=== PATIENT | male | born 1955 | race Caucasian/White ===

== ENCOUNTER 2019-07-01 13:34 | Observation (INO) ==
[2019-07-01 14:03] LABS: Basophils # 0.1 K/mcL (0.0-0.2); Eosinophils % 0.3 %; Hematocrit 34.5 % (37.5-50.1); Hemoglobin 10.7 g/dL (12.9-16.9); Immature Granulocytes % 0.3 % (0-4); Lymphocytes # 1.4 K/mcL (0.6-4.6); Lymphocytes % 21.6 %; Mean Corpuscular Hemoglobin 26.9 pg (28.0-33.3); Mean Corpuscular Volume 86.7 fL (83.0-100.0); Mean Platelet Volume 11.1 fL (9.4-12.4); Monocytes # 0.7 K/mcL (0.0-1.3); Monocytes % 11.7 %; Neutrophils # 4.1 K/mcL (1.6-8.9); Platelet Count 378 K/mcL (140-400); Red Blood Count 3.98 M/mcL (4.19-5.50); Segmented Neutrophils % 65.1 %; White Blood Count 6.3 K/mcL (4.3-11.1)
[2019-07-01] MEDS ORDERED: Aspirin 325 MG TABLET PO ONE (14:04)
[2019-07-01 14:14] LABS: INR 1.4; Prothrombin Time 16.3 Seconds (9.4-12.1)
[2019-07-01 14:26] LABS: BUN/Creatinine Ratio 20 (6-26); Blood Urea Nitrogen 26 mg/dL (8-23); Calcium 8.8 mg/dL (8.6-10.3); Carbon Dioxide 17 mEq/L (23-29); Chloride 102 mEq/L (98-107); Glucose 120 mg/dL (70-105); Osmolality,Calculated 278 (280-300); Potassium 4.5 mEq/L (3.5-5.1); Sodium 131 mEq/L (136-145); eGFR For African Americans > 60 (> 60); eGFR For Non-African Americans 55 (> 60)
[2019-07-01 14:29] LABS: Troponin I 0.05 ng/mL (< 0.04)
[2019-07-01] MEDS ORDERED: Furosemide 40 MG/4 ML VIAL IVP ONE (14:30)
[2019-07-01] MEDS: Nitroglycerin 0.4 MG TAB.SUBL SL SCH ×2 (14:39→18:04)
[2019-07-01] MEDS ORDERED: Isovue-370 500 ML BOTTLE IVP ONE (14:41)
--- NOTE | 2019-07-01 15:51 | Emergency Department Note ---
Disposition Clinical Impression: Elevated troponin, Pleural effusion Congestive heart failure Qualifiers: Heart failure type: unspecified Heart failure chronicity: acute on chronic Qualified Code(s): I50.9 - Heart failure, unspecified Anemia Qualifiers: Anemia type: unspecified type Qualified Code(s): D64.9 - Anemia, unspecified Disposition: Admitted As Inpatient Condition: Good Time of Disposition: 15:57 General Adult HPI - General Chief complaint: ED Chest Pain Stated complaint: Heart Problems Time Seen by Provider: 07/01/19 13:49 Source: patient, family Mode of arrival: ambulatory Limitations: no limitations Nursing Notes Reviewed: Yes Vital Signs Reviewed: Yes - History of Present Illness HPI Narrative: 64-year-old male with significant past medical history of congestive heart failure and stent placement 2 weeks ago presenting to the emergency department chief complaint of increased shortness of breath, weakness and chest pressure. Patient states for the past 3-4 days he has had increasing shortness of breath and weakness. He states he cannot even get up and walk without becoming short of breath. He has had a dry cough, nonproductive. No fevers. States his chest hurts more when he coughs but he does have chest pressure even without coughing. Patient has no history of COPD or emphysema but does state that he has smoked his whole life. Pain Scale: 4 - Related Data Home Medications Medication Instructions Recorded Confirmed Pantoprazole Sodium [Protonix] 40 mg PO DAILY 09/27/17 07/01/19 Budesonide/Formoterol 80/4.5 2 puff IH BID 03/06/19 07/01/19 [Symbicort 80/4.5] Furosemide [Lasix] 30 mg PO BID 03/06/19 07/01/19 Gabapentin 800 mg PO TID 03/06/19 07/01/19 Ipratropium/Albuterol Sulfate 1 puff IH QID PRN 03/06/19 07/01/19 [Combivent Respimat Inhal [place]] Magnesium Oxide [Magnesium] 400 mg PO DAILY 03/06/19 07/01/19 Brimonidine 0.2% [Alphagan] 1 drop RIGHT EYE BID 07/01/19 07/01/19 Etanercept [Enbrel] 50 mg SQ QWEEK 07/01/19 07/01/19 Latanoprost/Pf [Latanoprost 0.005% 1 drop RIGHT EYE HS 07/01/19 07/01/19 Eye Drop] Lisinopril [Zestril] 10 mg PO DAILY 07/01/19 07/01/19 Metoprolol Succinate [Toprol Xl] 25 mg PO DAILY 07/01/19 07/01/19 Varenicline [Chantix] 1 mg PO BID 07/01/19 07/01/19 Previous Rx's Medication Instructions Recorded Aspirin 81 mg PO DAILY #30 tab.chew 03/06/19 Clopidogrel Bisulfate [Plavix] 75 mg PO DAILY #30 tablet 03/06/19 Allergies Allergy/AdvReac Type Severity Reaction Status Date / Time Amoxicillin Allergy Anaphylaxis Verified 03/06/19 16:02 Penicillins [PCN] Allergy Anaphylaxis Verified 03/06/19 16:02 All systems ED: reviewed and negative except as stated. Constitutional: Denies: fever Eyes: Reports: as per HPI ENT ED: Reports: as per HPI Cardiovascular: Reports: chest pain Respiratory: Reports: cough, dyspnea. Denies: sputum production Gastrointestinal: Reports: as per HPI Genitourinary: Reports: as per HPI Musculoskeletal: Reports: as per HPI Integumentary: Reports: as per HPI Neurological: Reports: as per HPI Psychiatric: Reports: as per HPI Endocrine: Reports: as per HPI Hematological/Lymphatic: Reports: as per HPI Allergic/Immunologic: Reports: as per HPI Past Medical History - Past Medical History Attestation: Yes The following information was validated with the patient. Medical history: Reports: arthritis, cardiomyopathy, CHF, COPD, coronary artery disease, GERD, hypertension Surgical history: Reports: herniorrhaphy Psychiatric history: Reports: no psych history - Social History Smoking Status: Current every day smoker Smokeless Tobacco Status: No Alcohol use: Reports: none Drug use: Reports: none Physical Exam - General Limitations: no limitations General appearance: alert, in no apparent distress - Head Head exam: atraumatic, normocephalic, normal inspection - Eye Eye exam: Absent: scleral icterus - ENT ENT exam: mucous membranes moist - Neck Neck exam: Present: full ROM - Chest Chest inspection: Present: symmetric chest wall rise - Respiratory Respiratory exam: Present: other (Decreased breath sounds bilateral bases) - Cardiovascular Cardiovascular exam: Present: tachycardia - Abdominal Exam Abdominal exam: Present: soft, Non-Tender. Absent: distention, guarding, rebound - Extremities Exam Extremities exam: Present: full ROM, other (Trace edema bilateral lower extremities) - Neurological Exam Neurological exam: Present: alert, oriented X3 - Psychiatric Psychiatric exam: Present: normal affect - Skin Skin exam: Present: warm Course Course Narrative: 64-year-old male presenting to the emergency department chief complaint of chest pressure and increasing shortness of breath. In the room he is alert and oriented 3. Hemodynamically stable. Physical exam is significant for decrease d breath sounds in the bilateral bases. No wheezing. At this time concern for respiratory etiology versus cardiac. Patient did have stent placed 2 weeks ago. Currently on aspirin and Plavix. Did not take his aspirin today. At this time will obtain basic labs, troponin, EKG, d-dimer. Disposition most likely admission due to patient's cardiac history and symptoms. Patient agrees with this plan. - Reevaluation(s) Reevaluation #1: Patient's laboratory analysis significant for elevated d-dimer. CTA was added and showed small bilateral pleural effusions but no pulmonary embolus. Patient also had elevated troponin at 0.05. CTA was concerning for some right heart strain. Most likely due to congestive heart failure. 40 mg of IV Lasix given. Patient will be admitted for CHF, elevated troponin. Patient remains alert and oriented 3 and hemodynamically stable. Patient agrees with this plan. I spoke with Dr. Glasgow who agrees to accept the patient at this time. Vital Signs Temperature 97.7 F 07/01/19 13:34 Pulse Rate 110 07/01/19 13:34 Respiratory Rate 16 07/01/19 13:34 Blood Pressure 151/85 07/01/19 13:34 O2 Sat by Pulse Oximetry 99 07/01/19 13:34 Temperature 97.7 F 07/01/19 13:34 Pulse Rate 110 07/01/19 13:34 Respiratory Rate 16 07/01/19 13:34 Blood Pressure 151/85 07/01/19 13:34 O2 Sat by Pulse Oximetry 99 07/01/19 13:34 Medical Decision Making - Lab Data Result diagrams: 07/01/19 13:52 07/01/19 13:52 Lab Results 07/01/19 07/01/19 07/01/19 Range/Units 13:52 13:52 13:52 WBC 6.3 (4.3-11.1) K/mcL RBC 3.98 L (4.19-5.50) M/mcL Hgb 10.7 L (12.9-16.9) g/dL Hct 34.5 L (37.5-50.1) % MCV 86.7 (83.0-100.0) fL MCH 26.9 L (28.0-33.3) pg MCHC 31.0 L (31.6-35.5) g/dL RDW 16.0 H (11.5-14.5) % Plt Count 378 (140-400) K/mcL MPV 11.1 (9.4-12.4) fL Immature Gran % 0.3 (0-4) % Seg Neutrophils % 65.1 % Lymphocytes % 21.6 % Monocytes % 11.7 % Eosinophils % 0.3 % Basophils % 1.0 % Neutrophils # 4.1 (1.6-8.9) K/mcL Lymphocytes # 1.4 (0.6-4.6) K/mcL Monocytes # 0.7 (0.0-1.3) K/mcL Eosinophils # 0.0 (0.0-0.6) K/mcL Basophils # 0.1 (0.0-0.2) K/mcL PT 16.3 H (9.4-12.1) Seconds INR 1.4 APTT 31.0 (26.0-36.0) Seconds D-Dimer 2601 H (0-500) ng/mLFEU Sodium 131 L (136-145) mEq/L Potassium 4.5 (3.5-5.1) mEq/L Chloride 102 (98-107) mEq/L Carbon Dioxide 17 L (23-29) mEq/L BUN 26 H (8-23) mg/dL Creatinine 1.30 (0.70-1.30) mg/dL Est GFR ( Amer) > 60 (> 60) Est GFR (Non-Af Amer) 55 L (> 60) BUN/Creatinine Ratio 20 (6-26) Glucose 120 H (70-105) mg/dL Calculated Osmolality 278 L (280-300) Calcium 8.8 (8.6-10.3) mg/dL Troponin I 0.05 H* (< 0.04) ng/mL - EKG Data EKG #1 EKG attestation: Yes I reviewed and interpreted this EKG. EKG results narrative: Sinus tachycardia with PVCs. MI interval 124, QRS 86, QTC 420. 105 bpm. T- wave inversion noted in V5, V6. ST segment depression noted in leads 2, 3 and aVF. Compared to previous EKG completed on 03/15/2015 new T-wave inversions and ST segment depression noted. Critical Care Time Critical Care Time: Yes Total Critical Care Time: 35 Attestation: CRITICAL CARE TIME OF 35 MINUTES PERFORMING THIS INDIVIDUAL OUTSIDE OF [facility] BILLABLE PROCEDURES. THIS INCLUDES BEDSIDE EVALUATION, INTERPRETATION OF EKG AND LAB TESTS AND CONSULTATIONS. Attestation Statement - Attestation Attestation: I examined this patient and my medical decision-making was reviewed with the Resident Physician. I agree with the documented findings, disposition and treatment plan as described except to the extent set forth below. Patient comes in with complaints of shortness of breath, he is short of breath with exertion, recently had a stent put in 2 weeks ago. Patient does have it appears to be COPD. The patient has some diminished breath sounds on examination. Do not appreciate wheezing. The patient has no gallop pain or anterior chest pain. Patient does have a slightly elevated troponin here in the emergency room. The patient did have an EKG, do agree with the resident's interpretation of this EKG. There has been no change since an EKG from several years ago however there is nothing to compare to from recent stent placement. The patient at this point time is found to have congestive heart failure. The patient was given IV Lasix here in the emergency room. Patient is going to be admitted for further evaluation and care.
[2019-07-01] MEDS ORDERED: Naloxone 0.4 MG/ML INJ IVP PRN (17:44)
[2019-07-01] MEDS ORDERED: Acetaminophen 325 MG TABLET PO PRN (17:44)
[2019-07-01] MEDS ORDERED: Ondansetron 4 MG/2 ML VIAL IVP PRN (17:44)
--- NOTE | 2019-07-01 17:57 | Internal Med History&Physical ---
Date of Encounter: 07/01/19 Time of Encounter: 17:00 Internal Medicine - H&P: HPI Admitted From: Emergency Dept Plans for Post Hospital Care: Home History of present illness: Mr. 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 He reports undergoing left heart catheter with PCI few weeks ago and started since discharge has not felt quite himself. He is complaining of shortness of breath, dyspnea with mild exertion, generalized weakness fatigue and malaise as well as chest congestion and dry cough for the past 3 days. He reports one sick contact his with similar symptoms of cough and chest congestion. Patient also reports orthopnea and occasional paroxysmal nocturnal dyspnea. He stated and his told him he has apneic episodes while sleeping but he denies any formal diagnosis of obstructive sleep apnea. Patient denies any weight changes or lower extremity edema. He denies any chest pain per se but stated that his chest has felt congested with associated dry cough. Denies any fevers or reports always feeling cold. He started his primary care physician has not scheduled for thyroid biopsy as an outpatient. 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 He denies formal diagnosis of pulmonary hypertension ever undergoing workup for pulmonary hypertension with a right heart. He does endorse heavy drinking many years ago quit back in 1985 but denies any formal diagnosis of liver cirrhosis. Of note CTA was negative for pulmonary embolism but revealed slight pleural effusion pulmonary hypertension with reflux of contrast material into the IVC and hepatic veins suggestive of right heart failure, the findings with lung emphysema Past Med Surg Social Fam HX - Past Medical History Medical history: arthritis, cardiomyopathy, CHF, COPD, coronary artery disease, GERD, hypertension Additional medical history: RHUEMATOID ARTHRITIS, ULCERS,MIGRAINES,ARTHR OSCLEROSIS, Psychiatric history: no psych history - Past Surgical History Surgical History: herniorrhaphy Additional surgical history: BACK SURGERY 1995,LEFT EYE, HERNIA REPAIR, PILONIAL CYSTECTOMY - Social History Smoking Status: Current every day smoker Smokeless Tobacco Status: No Alcohol use: none Drug use: none - Family History Father Living Status: Hx Family Cardiac Disorders: Yes Hx Family Endocrine Disorder: Yes (DM) Internal Medicine - H&P: Meds Pantoprazole Sodium [Protonix] 40 mg PO DAILY 09/27/17 [History] Aspirin 81 mg PO DAILY #30 tab.chew 03/06/19 [Rx] Budesonide/Formoterol 80/4.5 [Symbicort 80/4.5] 2 puff IH BID 03/06/19 [History] Clopidogrel Bisulfate [Plavix] 75 mg PO DAILY #30 tablet 03/06/19 [Rx] Furosemide [Lasix] 30 mg PO BID 03/06/19 [History] Gabapentin 800 mg PO TID 03/06/19 [History] Ipratropium/Albuterol Sulfate [Combivent Respimat Inhal [place]] 1 puff IH QID PRN 03/06/19 [History] Magnesium Oxide [Magnesium] 400 mg PO DAILY 03/06/19 [History] Brimonidine 0.2% [Alphagan] 1 drop RIGHT EYE BID 07/01/19 [History] Etanercept [Enbrel] 50 mg SQ QWEEK 07/01/19 [History] Latanoprost/Pf [Latanoprost 0.005% Eye Drop] 1 drop RIGHT EYE HS 07/01/19 [History] Lisinopril [Zestril] 10 mg PO DAILY 07/01/19 [History] Metoprolol Succinate [Toprol Xl] 25 mg PO DAILY 07/01/19 [History] Varenicline [Chantix] 1 mg PO BID 07/01/19 [History] Allergy/AdvReac Type Severity Reaction Status Date / Time Amoxicillin Allergy Anaphylaxis Verified 03/06/19 16:02 Penicillins [PCN] Allergy Anaphylaxis Verified 03/06/19 16:02 All Systems PM: A 10-system review of systems was performed and is negative for pertinent findings except as documented above in the HPI. Review of systems: GENERAL: Denies fever, but admits to chills, fatigue generalized weakness and malaise DERMATOLOGIC: Denies itch, rash or lesions HEENT: Denies headache, blurriness, he reports having lost vision in his left eye and now has a prosthetic lens, he denies ear pain, tinnitus, rhinorrhea, s inus tenderness or sore throat RESPIRATORY: Reports SOB, cough, but denies hemoptysis or pleuritic chest pain CARDIOVASCULAR: Denies chest pain, LE edema, palpitation or syncope reports dyspnea with mild exertion GASTRO INTESTINAL: Denies cramps, nausea/vomiting, diarrhea or constipation, melena MUSCULOSKELATAL: Reports bilateral muscle pain in his thighs with ambulation, denies joint pain or stiffness PSYCH: Denies worsening anxiety, or depression NEURO: Denies vertigo, dizziness, or ataxia GENITURINARY: Denies dysuria, nocturia or urinary incontinence - Constitutional Vitals: Temp Pulse Resp BP Pulse Ox 97.5 F L 55 18 136/93 97 07/01/19 17:17 07/01/19 17:17 07/01/19 17:17 07/01/19 17:17 07/01/19 17:17 Exam: GENERAL: NAD, A&O x3, pleasant and conversant SKIN: [place], warm dry No skin lesions or rashes, non-jaundiced EYES: Pupil asymmetry noted right greater than left, right EOMI intact, left prosthetic lens noted, no sclera icterus HENT: Head atraumatic, no facial asymmetry, frontal and maxillary sinus non- tender, normal hearing, oropharynx and mucosa moist and without any exudates NECK: No cervical lymphadenopathy, trachea midline, thyroid is palpable and does appear enlarged, mild JVD noted LUNGS: vesicular breath sounds, clear to auscultation, no wheeze, rhonchi, rales or crackles. Non labored respirations HEART: Normal rate and rhythm, grade 2/6 systolic murmur appreciated ABDOMEN: soft, non-tender, non-distended, bowel sounds x 4 normoactive, no appreciable ascites EXTRMITIES: No LE asymmetry, No LE edema, pedal pulses 1+ and radial pulses 2 + and equal bilaterally NEURO: Speech and comprehension appears intact. PSYCH: Cooperative, non- anxious or irritable, mood and affect is appropriate Internal Med - H&P Results - Labs CBC & Chem 7: 07/01/19 13:52 07/01/19 13:52 Labs: Short CBC 07/01/19 Range/Units 13:52 WBC 6.3 (4.3-11.1) K/mcL Hgb 10.7 L (12.9-16.9) g/dL Hct 34.5 L (37.5-50.1) % Plt Count 378 (140-400) K/mcL Neutrophils # 4.1 (1.6-8.9) K/mcL BMP 07/01/19 13:52 Sodium 131 L Potassium 4.5 Chloride 102 Carbon Dioxide 17 L BUN 26 H Creatinine 1.30 Glucose 120 H Calcium 8.8 Cardiac Enzymes 07/01/19 Range/Units 13:52 Troponin I 0.05 H* (< 0.04) ng/mL - Impressions ITS Impressions Chest X-Ray 07/01/19 14:14 IMPRESSION: Mild pulmonary vascular congestion. Trace pleural effusions with adjacent atelectasis. D/ / Symone Valladares MD / Symone Valladares MD Interpreting Provider: Symone Valladares MD Chest CTA 07/01/19 15:22 IMPRESSION: 1. No acute pulmonary embolism. 2. Small to moderate right and small left pleural effusions right more than left basilar atelectasis. 3. Reflux of contrast into the IVC and hepatic veins which may be due to rapid contrast administration versus right heart failure. 4. Dilated main pulmonary artery compatible with pulmonary hypertension. 5. Upper abdominal ascites. 6. Mild upper lung paraseptal and centrilobular emphysema. D/ / 07/01/2019 16:19:58 Macarena Hayes MD / [email or web address] Interpreting Provider: Macarena Hayes MD - Assessment and Plan (1) Dyspnea Current Visit: Yes Status: Acute Assessment and plan: Could be multifactorial CTA negative for PE but did reveal small pleural effusion right greater than left with bibasilar atelectasis dilated main pulmonary artery suggestive of pulmonary hypertension and emphysema. Upon review of his last 2-D echo dated 2018 EF is 20-25% CVA had global left ventricular systolic dysfunction moderate mitral regurg and RSVP of 59. Patient appears to have components of both cardiac and pulmonary compromise. Given his chest congestion and cough will go ahead rule out infectious causes-rapid influenza and B antigen, strep and Legionella urine antigen has been ordered. We will also obtain a baseline BNP. We will check a TSH thyroid gland on exam seems enlarge. of note, he stated that his primary care physician as already initiated work up that his plan for thyroid biopsy upcoming weeks Qualifiers: Dyspnea type: dyspnea on exertion Qualified Code(s): R06.09 - Other forms of dyspnea (2) HFrEF (heart failure with reduced ejection fraction) Current Visit: Yes Status: Acute Assessment and plan: EF of 20-25% on exam does not appear to be overtly volume overload but seems to have signs of probably right heart failure with mild elevated JVD chest x-ray does reveal pulmonary vascular congestion, will continue IV Lasix. He has elements of An acute on chronic heart failure Qualifiers: Heart failure chronicity: acute on chronic Qualified Code(s): I50.23 - Acute on chronic systolic (congestive) heart failure (3) Pulmonary hypertension Current Visit: Yes Status: Acute Assessment and plan: Patient placed on this 2-D echo from 06/17 appears to have met criteria for pulmonary hypertension based on RSVP of 59 mmHg, CTA chest also reveals prominent main pulmonary arteries also suggestive of pulmonary hypertension. Suspect type II or III pulmonary hypertension patient might benefit from a right heart cath if not already done. We will consider consulting real estate account executive tomorrow to help with further workup and treatment plan (4) CAD (coronary artery disease) Current Visit: Yes Status: Acute Assessment and plan: Denies chest pain recent PCI troponin is elevated we will trend Qualifiers: Coronary Disease-Associated Artery/Lesion type: [place] artery [place] vs. transplanted heart: [place] heart Associated angina: without angina Qualified Code(s): I25.10 - Atherosclerotic heart disease of [place] coronary artery without angina pectoris (5) Emphysema with chronic bronchitis Current Visit: Yes Status: Acute Assessment and plan: DuoNeb as needed, he does not appear to be a COPD exacerbation. His pulmonary exam was benign his dyspnea likely combination of poor cardiac output coupled with underlying emphysema and now new development of ascites (6) Ascites Current Visit: Yes Status: Acute Assessment and plan: He reports heavy consumption of alcoholic beverages during his young adult life quit drinking heavily back in 1985 ascites not appreciated on exam. Will obtain LFTs may need further work up, CT abdomen pending to delineate ascites and liver pathology Qualifiers: Ascites type: other type Qualified Code(s): R18.8 - Other ascites (7) Hyponatremia Current Visit: Yes Status: Acute Assessment and plan: Sodium is 131 with some fluid restriction 1.5 L repeat sodium in the morning he is otherwise asymptomatic, will check TSH for euvolemic hyponatremia (8) Anemia Current Visit: Yes Status: Acute Assessment and plan: Hemoglobin presentation is 10.7 much improved from last hemoglobin of 10.3 in February 2019, given his complaint of dyspnea on exertion was initiate workup Iron studies B12 and folate has been ordered Qualifiers: Anemia type: unspecified type Qualified Code(s): D64.9 - Anemia, unspecified (9) DVT prophylaxis Current Visit: Yes Status: Acute Assessment and plan: Heparin per protocol - Time Spent With Patient Total time spent is greater than 50% in coordination of care (as documented) at patient's floor/unit and/or counseling patient:
[2019-07-01] MEDS: Budesonide/Formoterol 80/4.5 1 PUFF INH IH SCH (20:21)
[2019-07-01] MEDS ORDERED: Gabapentin 400 MG CAPSULE PO SCH (21:00)
[2019-07-01] MEDS: *HR* Heparin 5,000 UNIT/ML VIAL SQ SCH (21:43)
[2019-07-01] MEDS: Latanoprost 2.5 ML BOTTLE RIGHT EYE SCH (21:43)
[2019-07-02 02:30] LABS: Hematocrit 30.1 % (37.5-50.1); Hemoglobin 9.5 g/dL (12.9-16.9); Mean Corpuscular HGB Conc 31.6 g/dL (31.6-35.5); Mean Corpuscular Hemoglobin 26.7 pg (28.0-33.3); Mean Corpuscular Volume 84.6 fL (83.0-100.0); Mean Platelet Volume 11.6 fL (9.4-12.4); Platelet Count 324 K/mcL (140-400); Red Blood Count 3.56 M/mcL (4.19-5.50); White Blood Count 5.3 K/mcL (4.3-11.1)
[2019-07-02 02:49] LABS: Albumin 3.4 g/dL (3.5-5.7); Albumin/Globulin Ratio 1.6 (1.1-2.2); Bilirubin,Direct 0.3 mg/dL (0.0-0.2); Bilirubin,Indirect 0.3 mg/dL (0.0-1.2); Bilirubin,Total 0.6 mg/dL (0.3-1.0); Globulin 2.1 g/dL (2.4-3.5); Total Protein 5.5 g/dL (6.4-8.9)
[2019-07-02 02:52] LABS: Calcium 8.4 mg/dL (8.6-10.3); Magnesium 1.8 mg/dL (1.6-2.6); Potassium 4.2 mEq/L (3.5-5.1)
[2019-07-02 03:15] LABS: Folate 15.7 ng/mL (3.0-16.0)
[2019-07-02 03:36] LABS: Lymphocytes # 1.9 K/mcL (0.6-4.6); Monocytes # 0.6 K/mcL (0.0-1.3); Neutrophils # 2.8 K/mcL (1.6-8.9); Platelet Estimate Normal (Normal); Reactive Lymphocytes Present (Not Present)
[2019-07-02] MEDS: *HR* Heparin 5,000 UNIT/ML VIAL SQ SCH ×3 (06:04→21:39)
[2019-07-02] MEDS: Budesonide/Formoterol 80/4.5 1 PUFF INH IH SCH ×2 (07:50→19:45)
[2019-07-02] MEDS: Aspirin 81 MG TAB.CHEW PO SCH (08:09)
[2019-07-02] MEDS: Metoprolol XL (24 HR) Succ 25 MG TAB.ER.24H PO SCH (08:09)
[2019-07-02] MEDS: Gabapentin 400 MG CAPSULE PO SCH ×3 (08:09→21:39)
[2019-07-02] MEDS: Magnesium Oxide 400 MG TABLET PO SCH (08:09)
[2019-07-02] MEDS ORDERED: Furosemide 40 MG/4 ML VIAL IVP SCH (09:00)
--- NOTE | 2019-07-02 11:16 | Internal Med Progress Note ---
Hospitalist Progress Note - Encounter Date of Encounter: 07/02/19 Time of Encounter: 10:15 - Subjective Interval History: Patient was seen at bedside. Denies any acute complaints today. Denies chest pain, shortness of breath, orthopnea. He feels that his breathing status is much improved as compared to yesterday. No other overnight events. Denies any fever, chills, rigors. Kidney functions got worse today. - Exam Vitals: Temp Pulse Resp BP Pulse Ox 98.0 F 107 18 119/84 96 07/02/19 07:52 07/02/19 07:52 07/02/19 07:52 07/02/19 07:52 07/02/19 07:52 Exam: General: Alert and oriented, no physical distress, able to follow commands. HEENT: No thyromegaly, no lymphadenopathy, no discharge. Eyes: No discharge. Normal conjuctiva, no icterus Respiratory: Normal vesicular breathing, no added sounds, breathing equal in both sides. CVS: Normal heart sounds, no murmurs, regular rhthm, no edema Extremities: No peripheral edema, peripheral pulses intact. Lymph nodes: No lymphadenopathy Gastrointestinal: Soft, nontender abdomen, normal abdominal sounds. No distention noted. Genitourinary: No paravertebral tenderness. Skin: No rash, ulcers or wound. Neurological: Alert and oriented. No focal deficits. Cranial nerves II-XII intact. - Assessment and Plan (1) Dyspnea Current Visit: Yes Status: Acute Assessment and Plan: Etiology is unclear, most likely related to congestive heart failure. Chest CT was negative for pulmonary embolism, showed moderate right and small left pleural effusions. Dilated main pulmonary arteries compatible with pulmonary hypertension. Also showed upper abdominal ascites. Patient was given 1 dose of IV Lasix yesterday, was given 1 more dose of IV Lasix today. Patient kidney function got worse. Currently the patient is on room air, saturation in high 90s, hemodynamically stable, no labored respirations. BNP above 5000 Does not seem to be in overt heart failure at this point. Considering the history of low ejection fraction with ischemia, we will place good urology consult for further recommendations. (2) HFrEF (heart failure with reduced ejection fraction) Current Visit: Yes Status: Acute Assessment and Plan: EF of 20-25% on the previous echo. on exam does not appear to be overtly volume overload HOld lasix considering worsening in renal functions. Cardiology consult for further recommendations. (3) Pulmonary hypertension Current Visit: Yes Status: Acute Assessment and Plan: Patient placed on this 2-D echo from 06/17 appears to have met criteria for pulmonary hypertension based on RSVP of 59 mmHg, CTA chest also reveals prominent main pulmonary arteries also suggestive of pulmonary hypertension. Suspect type II or III pulmonary hypertension Cardiology consult had been placed, may need right heart catheter. (4) CAD (coronary artery disease) Current Visit: Yes Status: Acute Assessment and Plan: Denies chest pain Recent PCI in february with stent in RCA Continue asprin, plavix (5) Emphysema with chronic bronchitis Current Visit: Yes Status: Acute Assessment and Plan: No acute exacerbation Duoneb as needed (6) Ascites Current Visit: Yes Status: Acute Assessment and Plan: Likely due to CHF CT abdomen with mild ascites (7) Hyponatremia Current Visit: Yes Status: Acute Assessment and Plan: Likley due to CHF Improving (8) Anemia Current Visit: Yes Status: Acute Assessment and Plan: HGb at presntaion was 10.5, today it is 9.5 Denies any bleeding, could be related to diuresis Repeat CBC (9) DVT prophylaxis Current Visit: Yes Status: Acute (10) LORENA (acute kidney injury) Current Visit: Yes Status: Acute Assessment and Plan: Cr increased from 1.3 to 1.79 Could be relatd to diuresis or lab error Repeat BMP Pt looks euvolemic clinically, so we will hold furtehr lasix Cardiolgoy consult palced. Order urine studies. Reepat BMP - Time Spent with Patient Total time spent is greater than 50% in coordination of care (as documented) at patient's floor/unit and/or counseling patient: Internal Medicine: Result - Labs CBC & Chem 7: 07/02/19 01:57 07/02/19 01:57 Labs: Short CBC 07/01/19 07/02/19 Range/Units 13:52 01:57 WBC 6.3 5.3 (4.3-11.1) K/mcL Hgb 10.7 L 9.5 L (12.9-16.9) g/dL Hct 34.5 L 30.1 L (37.5-50.1) % Plt Count 378 324 (140-400) K/mcL Neutrophils # 4.1 2.8 (1.6-8.9) K/mcL BMP 07/01/19 07/02/19 13:52 01:57 Sodium 131 L 133 L Potassium 4.5 4.2 Chloride 102 100 Carbon Dioxide 17 L 20 L BUN 26 H 32 H Creatinine 1.30 1.79 H Glucose 120 H 103 Calcium 8.8 8.4 L Cardiac Enzymes 07/01/19 07/01/19 07/02/19 Range/Units 13:52 19:50 01:57 Troponin I 0.05 H* 0.06 H* 0.06 H* (< 0.04) ng/mL Liver Function 07/02/19 Range/Units 01:57 Total Bilirubin 0.6 (0.3-1.0) mg/dL Direct Bilirubin 0.3 H (0.0-0.2) mg/dL AST 41 H (13-39) Units/L ALT 78 H (7-52) Units/L Alkaline Phosphatase 235 H (34-104) Units/L Albumin 3.4 L (3.5-5.7) g/dL - ABG Interpretation ABG results: PT/INR, D-dimer PT 16.3 Seconds (9.4-12.1) H 07/01/19 13:52 D-Dimer 2601 ng/mLFEU (0-500) H 07/01/19 13:52 - Impressions Impressions Chest X-Ray 07/01/19 14:14 IMPRESSION: Mild pulmonary vascular congestion. Trace pleural effusions with adjacent atelectasis. D/ / Symone Valladares MD / Symone Valladares MD Interpreting Provider: Symone Valladares MD Chest CTA 07/01/19 15:22 IMPRESSION: 1. No acute pulmonary embolism. 2. Small to moderate right and small left pleural effusions right more than left basilar atelectasis. 3. Reflux of contrast into the IVC and hepatic veins which may be due to rapid contrast administration versus right heart failure. 4. Dilated main pulmonary artery compatible with pulmonary hypertension. 5. Upper abdominal ascites. 6. Mild upper lung paraseptal and centrilobular emphysema. D/ / 07/01/2019 16:19:58 Macarena Hayes MD / [email or web address] Interpreting Provider: Macarena Hayes MD Abdomen/Pelvis CT 07/01/19 21:20 IMPRESSION: Mild ascites. Persistent renal nephrograms. Please correlate with renal function. Gallbladder wall thickening and pericholecystic fluid. Diffuse bladder wall thickening related to underdistention or muscular hypertrophy. Please correlate urinalysis findings Small fat containing left inguinal hernia D/ / Gilbert Mckee / Gilbert Mckee Interpreting Provider: Gilbert Mckee Consult Discharge Plan - Plan [facility]: [facility]Primary Care Provider] - (1) Dyspnea Qualifiers: Dyspnea type: dyspnea on exertion Qualified Code(s): R06.09 - Other forms of dyspnea (2) HFrEF (heart failure with reduced ejection fraction) Qualifiers: Heart failure chronicity: acute on chronic Qualified Code(s): I50.23 - Acute on chronic systolic (congestive) heart failure (4) CAD (coronary artery disease) Qualifiers: Coronary Disease-Associated Artery/Lesion type: [place] artery [place] vs. transplanted heart: [place] heart Associated angina: without angina Qualified Code(s): I25.10 - Atherosclerotic heart disease of [place] coronary artery without angina pectoris (6) Ascites Qualifiers: Ascites type: other type Qualified Code(s): R18.8 - Other ascites (8) Anemia Qualifiers: Anemia type: unspecified type Qualified Code(s): D64.9 - Anemia, unspecified
[2019-07-02 11:58] LABS: Calcium 8.8 mg/dL (8.6-10.3); Potassium 3.6 mEq/L (3.5-5.1)
[2019-07-02 12:04] LABS: Hematocrit 30.1 % (37.5-50.1); Hemoglobin 9.6 g/dL (12.9-16.9); Mean Corpuscular HGB Conc 31.9 g/dL (31.6-35.5); Mean Corpuscular Hemoglobin 26.4 pg (28.0-33.3); Mean Corpuscular Volume 82.7 fL (83.0-100.0); Mean Platelet Volume 11.1 fL (9.4-12.4); Platelet Count 299 K/mcL (140-400); Red Blood Count 3.64 M/mcL (4.19-5.50); White Blood Count 6.6 K/mcL (4.3-11.1)
--- NOTE | 2019-07-02 15:48 | Electrocardiograph Report ---
[address] [address] Test Date: 2019-07-01 Pat Name: Guillermo Nickerson Department: 104 Room: 2A37 Gender: M Service Delivery Director: Shagufta : 1955 Requested By: Jovanny Bunch Order Number: [id number] Reading MD: Mahin Tyler Measurements Intervals [place] Rate: 105 P: 73 NE: 124 QRS: 48 QRSD: 86 T: 91 QT: 359 QTc: 420 Interpretive Statements SINUS TACHYCARDIA WITH OCCASIONAL SUPRAVENTRICULAR PREMATURE COMPLEXES LEFT VENTRICULAR HYPERTROPHY AND ST-T CHANGE Electronically Signed On 07-02-2019 15:46:26 EDT by Mahin Tyler
--- NOTE | 2019-07-02 15:57 | Electrocardiograph Report ---
[address] [place], [place] [address] Test Date: 2019-07-02 Pat Name: Guillermo Nickerson Department: 112 Room: 2A37 Gender: M Manager Of Broadcast Content: OSCAR : 1955 Requested By: Kiara Noel Order Number: [id number] Reading MD: Mahin Tyler Measurements Intervals [place] Rate: 93 P: 74 CA: 148 QRS: 11 QRSD: 86 T: 213 QT: 379 QTc: 430 Interpretive Statements SINUS RHYTHM WITH OCCASIONAL SUPRAVENTRICULAR PREMATURE COMPLEXES POSSIBLE LEFT ATRIAL ENLARGEMENT ST DEVIATION AND MODERATE T-WAVE ABNORMALITY, CONSIDER LATERAL ISCHEMIA ST DEVIATION AND MODERATE T-WAVE ABNORMALITY, CONSIDER INFERIOR ISCHEMIA Electronically Signed On 07-02-2019 15:56:10 EDT by Mahin Tyler
[2019-07-02] MEDS: Latanoprost 2.5 ML BOTTLE RIGHT EYE SCH (21:40)
[2019-07-02 22:47] LABS: Sodium, Urine 103.2 mEq/L
[2019-07-03] MEDS: *HR* Heparin 5,000 UNIT/ML VIAL SQ SCH ×2 (04:58→14:12)
[2019-07-03 05:19] LABS: Basophils % 0.7 %; Eosinophils # 0.1 K/mcL (0.0-0.6); Eosinophils % 1.9 %; Hematocrit 29.8 % (37.5-50.1); Hemoglobin 9.3 g/dL (12.9-16.9); Immature Granulocytes % 0.5 % (0-4); Lymphocytes # 1.5 K/mcL (0.6-4.6); Lymphocytes % 25.5 %; Mean Corpuscular HGB Conc 31.2 g/dL (31.6-35.5); Mean Corpuscular Hemoglobin 26.6 pg (28.0-33.3); Mean Corpuscular Volume 85.1 fL (83.0-100.0); Mean Platelet Volume 11.2 fL (9.4-12.4); Monocytes # 0.9 K/mcL (0.0-1.3); Monocytes % 15.9 %; Neutrophils # 3.2 K/mcL (1.6-8.9); Platelet Count 269 K/mcL (140-400); Red Cell Distribution Width 16.1 % (11.5-14.5); Segmented Neutrophils % 55.5 %; White Blood Count 5.8 K/mcL (4.3-11.1)
[2019-07-03 05:29] LABS: BUN/Creatinine Ratio 26 (6-26); Blood Urea Nitrogen 33 mg/dL (8-23); Calcium 7.9 mg/dL (8.6-10.3); Carbon Dioxide 25 mEq/L (23-29); Chloride 105 mEq/L (98-107); Glucose 91 mg/dL (70-105); Magnesium 1.8 mg/dL (1.6-2.6); Osmolality,Calculated 293 (280-300); Potassium 3.6 mEq/L (3.5-5.1); Sodium 138 mEq/L (136-145); eGFR For African Americans > 60 (> 60); eGFR For Non-African Americans 58 (> 60)
[2019-07-03] MEDS: Budesonide/Formoterol 80/4.5 1 PUFF INH IH SCH (07:29)
[2019-07-03] MEDS: Metoprolol XL (24 HR) Succ 25 MG TAB.ER.24H PO SCH (08:11)
[2019-07-03] MEDS: Magnesium Oxide 400 MG TABLET PO SCH (08:11)
[2019-07-03] MEDS: Gabapentin 400 MG CAPSULE PO SCH (08:11)
[2019-07-03] MEDS: Aspirin 81 MG TAB.CHEW PO SCH (08:11)
[2019-07-03] MEDS ORDERED: Furosemide 20 MG TABLET PO SCH ×2 (10:00)
[2019-07-03 10:23] VITALS: BP 107/66
--- NOTE | 2019-07-03 10:40 | Cardiology Consult Note ---
<Ciara Sutton Wendy - Last Filed: 07/03/19 12:24> Date of Encounter: 07/03/19 Time of Encounter: 09:30 Assessment and Plan (1) HFrEF (heart failure with reduced ejection fraction) Current Visit: Yes Status: Acute Acute on chronic sCHF exacerbation. Patient presented with difficulty breathing, suspect COPD component as well. Hx of HFrEF; LVEF 20-25%. Outpatient referral to EP scheduled next month for AICD evaluation. CTA chest demonstrated bilateral effusions (small-moderate right sided, small left sided). CXR shows mild vascular congestion. BNP >5000. Given IV diuresis, SCr worsened. Now back to baseline. Back on home lasix dosin g. No overt edema or volume overload on exam, patient reports now at baseline. Strict I&Os, daily weights, Na/fluid restriction diet. Continue GDMT including BB, ACEi, and diuretics. Close outpatient follow-up with [facility] and EP. Qualifiers: Heart failure chronicity: acute on chronic Qualified Code(s): I50.23 - Acute on chronic systolic (congestive) heart failure (2) Elevated troponin Current Visit: Yes Status: Acute Mild, adynamic troponin elevation in the setting of acute on chronic CHF exacerbation. No chest pain reported. No acute ST/T wave abnormalities. Hx of PCI to [facility] 02/2019. Continue DAPT (asa + plavix), statin, and BB. (3) CAD (coronary artery disease) Current Visit: Yes Status: Acute As above. Qualifiers: Coronary Disease-Associated Artery/Lesion type: [place] artery [place] vs. transplanted heart: [place] heart Associated angina: without angina Qualified Code(s): I25.10 - Atherosclerotic heart disease of [place] coronary artery without angina pectoris Discussion w patient/family: The assessment and plan as outlined above was discussed with the patient and/or family members who expressed understanding and agreement. All questions were answered. Thank you for involving us in the care of your patient. Please call w ith any questions. History of Present Illness Consult date: 07/03/19 Requesting physician: Kai Perkins Consult reason: CHF Chief complaint: Shortness of breath History of present illness: Mr. Nickerson is a 64 year old male with PMHx of HFrEF, CAD s/p PCI, and COPD who presented to the ED with shortness of breath and difficulty breathing over the past 3 days. Associated symptoms included orthopnea. He reports compliance with all medications; additionally, he reports compliance with Na/fluid restricted diet. BNP >5000. Troponin mildly elevated. Imagining upon arrival demonstrated small to moderate right sided pleural effusion, pulmonary HTN, and small left pleural effusion. Abdominal ascites also described. He was given IV diuresis, however SCr worsened. Cardiology consulted today for further recommendations. Recent CV testing: [facility] LVEF 35% LHC 03/06/19: s/p successful PTCA/MISTY to mRCA; otherwise, mild non-obstructive CAD TTE 06/17/19: LVEF 20-25%, moderately dilated LV, moderate biatrial enlargement, moderate MR, mild-moderate TR, moderate PH, est RVSP=59 mmHg Past Med Surg Social Fam HX - Past Medical History Attestation: Yes The following information was validated with the patient. Source: patient Medical history: arthritis, cardiomyopathy, CHF, COPD, coronary artery disease, GERD, hypertension Additional medical history: RHUEMATOID ARTHRITIS, ULCERS,MIGRAINES,ARTHROSCLEROSIS, Psychiatric history: no psych history - Past Surgical History Surgical History: herniorrhaphy Additional surgical history: BACK SURGERY 1995,LEFT EYE, HERNIA REPAIR, PILONIAL CYSTECTOMY - Social History Smoking Status: Current every day smoker Smokeless Tobacco Status: No Alcohol use: none Drug use: none - Family History Father Living Status: Hx Family Cardiac Disorders: Yes Hx Family Endocrine Disorder: Yes (DM) Mother History Unknown: Yes Medications and Allergies Pantoprazole Sodium [Protonix] 40 mg PO DAILY 09/27/17 [History] Aspirin 81 mg PO DAILY #30 tab.chew 03/06/19 [Rx] Budesonide/Formoterol 80/4.5 [Symbicort 80/4.5] 2 puff IH BID 03/06/19 [History] Clopidogrel Bisulfate [Plavix] 75 mg PO DAILY #30 tablet 03/06/19 [Rx] Furosemide [Lasix] 30 mg PO BID 03/06/19 [History] Gabapentin 800 mg PO TID 03/06/19 [History] Ipratropium/Albuterol Sulfate [Combivent Respimat Inhal [place]] 1 puff IH QID PRN 03/06/19 [History] Magnesium Oxide [Magnesium] 400 mg PO DAILY 03/06/19 [History] Brimonidine 0.2% [Alphagan] 1 drop RIGHT EYE BID 07/01/19 [History] Etanercept [Enbrel] 50 mg SQ QWEEK 07/01/19 [History] Latanoprost/Pf [Latanoprost 0.005% Eye Drop] 1 drop RIGHT EYE HS 07/01/19 [History] Lisinopril [Zestril] 10 mg PO DAILY 07/01/19 [History] Metoprolol Succinate [Toprol Xl] 25 mg PO DAILY 07/01/19 [History] Varenicline [Chantix] 1 mg PO BID 07/01/19 [History] Allergy/AdvReac Type Severity Reaction Status Date / Time Amoxicillin Allergy Anaphylaxis Verified 03/06/19 16:02 Penicillins [PCN] Allergy Anaphylaxis Verified 03/06/19 16:02 All Systems Review: The remainder of the systems were reviewed and are negative - Cardiovascular Cardiovascular: as per HPI Physical Examination Vital Signs, Last 4 Hours Temp Pulse Resp BP Pulse Ox 07/03/19 10:21 98.0 F 97 14 107/66 97 07/03/19 08:15 136/74 General: Conversant, No Apparent Distress HEENT: Atraumatic, Normocephaly Cardiac: Reg Rate and Rhythm, Normal S1 and S2, Other (bibasilar rales) Neuro: Alert and responsive Abdomen: Soft Skin: No rashes noted on visualized skin Musculoskeletal: No Chest Wall Tenderness Extremities: No Edema, Normal Pulses Results 07/03/19 04:03 07/03/19 04:03 Lab Results 07/02/19 07/02/19 07/03/19 11:23 11:40 04:03 WBC 6.6 5.8 Hgb 9.6 L 9.3 L Hct 30.1 L 29.8 L Plt Count 299 269 Sodium 137 Potassium 3.6 Chloride 101 Carbon Dioxide 28 BUN 33 H Creatinine 1.67 H Glucose 104 Calcium 8.8 Magnesium 07/03/19 04:03 WBC Hgb Hct Plt Count Sodium 138 Potassium 3.6 Chloride 105 Carbon Dioxide 25 BUN 33 H Creatinine 1.25 Glucose 91 Calcium 7.9 L Magnesium 1.8 Active Medications Acetaminophen (Tylenol) 650 mg PO Q6HR PRN PRN Reason: Mild Pain/Fever Stop: 12/31/19 17:45 Aspirin (Aspirin) 81 mg PO DAILY [facility] Stop: 01/01/20 09:01 Last Admin: 07/03/19 08:11 Dose: 81 mg Documented by: Brimonidine Tartrate (Alphagan) 1 drop RIGHT EYE BID [facility]; Protocol Stop: 12/31/19 21:01 Last Admin: 07/03/19 10:45 Dose: 1 drop Documented by: Budesonide/Formoterol Fumarate (Symbicort) 2 puff IH BIDR [facility]; Protocol Stop: 12/31/19 22:01 Last Admin: 07/03/19 07:29 Dose: 2 puff Documented by: Clopidogrel Bisulfate (Plavix) 75 mg PO DAILY [facility] Stop: 01/01/20 09:01 Last Admin: 07/03/19 08:11 Dose: 75 mg Documented by: Furosemide (Lasix) 30 mg PO BIDDIURETIC [facility] Stop: 01/02/20 10:01 Last Admin: 07/03/19 10:45 Dose: 30 mg Documented by: Gabapentin (Neurontin) 800 mg PO TID [facility] Stop: 01/02/20 15:01 Heparin Sodium (Porcine) (Heparin) 5,000 unit SQ Q8HCO [facility] Stop: 12/31/19 22:01 Last Admin: 07/03/19 04:58 Dose: 5,000 unit Documented by: Latanoprost (Xalatan) 1 drop RIGHT EYE HS [facility] Stop: 12/31/19 21:01 Last Admin: 07/02/19 21:40 Dose: 1 drop Documented by: Lisinopril (Zestril) 10 mg PO DAILY [facility]; Protocol Stop: 01/01/20 09:01 Last Admin: 07/03/19 08:11 Dose: 10 mg Documented by: Magnesium Oxide (Mag-Ox) 400 mg PO DAILY [facility] Stop: 01/01/20 09:01 Last Admin: 07/03/19 08:11 Dose: 400 mg Documented by: Metoprolol Succinate (Toprol Xl) 25 mg PO DAILY [facility] Stop: 01/01/20 09:01 Last Admin: 07/03/19 08:11 Dose: 25 mg Documented by: Naloxone HCl (Narcan) 0.4 mg IVP Q2MPRN PRN PRN Reason: SEE COMMENTS Stop: 12/31/19 17:45 Omeprazole (Prilosec) 20 mg PO DAILY [facility] Stop: 01/01/20 09:01 Last Admin: 07/03/19 08:11 Dose: 20 mg Documented by: Ondansetron HCl (Zofran) 4 mg IVP Q8HR PRN PRN Reason: Nausea And Vomiting Stop: 12/31/19 17:45 - Imaging and Cardiology Echo: report reviewed Cardiac cath: report reviewed Other Results: 12 hour tele: avg [id number] SR. Frequent PACs Consult Discharge Plan - Plan [facility]errals: [facility] [Primary Care Provider] - <Jovanny Meehan - Last Filed: 07/03/19 14:02> Date of Encounter: 07/03/19 - Attending Attestation I have personally performed a face to face evaluation on this patient. I have reviewed and agree with the care plan. History and Exam by me shows: CHF exacerbation. Recommend continued duiresis. Assessment and Plan Discussion w patient/family: The assessment and plan as outlined above was discussed with the patient and/or family members who expressed understanding and agreement. All questions were answered. Thank you for involving us in the care of your patient. Please call with any questions. History of Present Illness History of present illness: Mr. Nickerson is a 64 year old male All Systems Review: The remainder of the systems were reviewed and are negative Physical Examination Vital Signs, Last 4 Hours Temp Pulse Resp BP Pulse Ox 07/03/19 10:21 98.0 F 97 14 107/66 97 Results 07/03/19 04:03 07/03/19 04:03 Lab Results 07/03/19 07/03/19 04:03 04:03 WBC 5.8 Hgb 9.3 L Hct 29.8 L Plt Count 269 Sodium 138 Potassium 3.6 Chloride 105 Carbon Dioxide 25 BUN 33 H Creatinine 1.25 Glucose 91 Calcium 7.9 L Magnesium 1.8
[2019-07-03] MEDS ORDERED: FLU Vac QV 19-20 (6Month+)/PF 0.5 ML SYRINGE IM ONE (14:24)
[2019-07-03] MEDS ORDERED: Furosemide 20 MG/2 ML VIAL IVP ONE (14:39)
--- NOTE | 2019-07-03 14:42 | Discharge Summary ---
- NOTES TO OUTPATIENT PROVIDER Notes to Outpatient Provider: Came wit the SOB, concerns for the acute exacerbation of congestive heart failure. He was diuresed initially but stopped because of worsening kidney functions, kidney function improved today and he is being discharged today. CT scan of the abdomen concening for the ascites. Consider follow up with field agent. Date of Encounter: 07/03/19 Time of Encounter: 10:30 - Discharge Diagnosis (1) Dyspnea Priority: Primary Status: Acute Qualifiers: Dyspnea type: dyspnea on exertion Qualified Code(s): R06.09 - Other forms of dyspnea (2) HFrEF (heart failure with reduced ejection fraction) Priority: Secondary Status: Acute Qualifiers: Heart failure chronicity: acute on chronic Qualified Code(s): I50.23 - Acute on chronic systolic (congestive) heart failure (3) Pulmonary hypertension Priority: Secondary Status: Acute (4) CAD (coronary artery disease) Priority: Secondary Status: Acute Qualifiers: Coronary Disease-Associated Artery/Lesion type: [place] artery [place] vs. transplanted heart: [place] heart Associated angina: without angina Qualified Code(s): I25.10 - Atherosclerotic heart disease of [place] coronary artery without angina pectoris (5) Emphysema with chronic bronchitis Priority: Secondary Status: Acute (6) Ascites Priority: Secondary Status: Acute Qualifiers: Ascites type: other type Qualified Code(s): R18.8 - Other ascites (7) Hyponatremia Priority: Secondary Status: Acute (8) Anemia Priority: Secondary Status: Acute Qualifiers: Anemia type: unspecified type Qualified Code(s): D64.9 - Anemia, unspecified (9) DVT prophylaxis Priority: Secondary Status: Acute (10) [place] (acute kidney injury) Priority: Secondary Status: Acute Hospital course: Mr. Nickerson is a 64 year old male with past medical history for hypertension and GERD and CAD status post PCI, COPD/emphysema meningioma and had failure with reduced ejection fraction and presented to the ED with the compalints of the dyspnea. Patient was diagnosed with acute exacerbation of CHF, started on IV Lasix. Next day, patient kidney function worsened and creatinine increased, Lasix was stopped, patient creatinine was better today. Patient was started b ack on his home dose of 30 mg by mouth Lasix twice a day. Patient is currently feeling fine. Denies chest pain, shortness of breath. Cardiology was also consulted. Recommended for the duresis for 1 more day but the patient seems to be euvolemic at this point. We will give 1 dose of IV Lasix 20 mg and resume the patient back on his home dose of oral Lasix. Patient is currently hemodynamically stable and is being discharged in stable condition. Also had elevated troponins with 0.06, remaiend at the same level, seems to be a non specific elevation considering pt hx of CAD and CHF. CT scan of the abdomen showed mild ascites which could be because of the right- sided heart failure. Patient is advised to follow-up with featheredge machine operator as an outpatient. Advised to follow-up with the PCP. - Time Spent with Patient Total time spent providing and/or coordinating discharge services: 31 minutes Time spent: Greater than 30 minutes - Discharge Medications Prescriptions: Continued RX: Pantoprazole Sodium [Protonix] 40 mg PO DAILY RX: Magnesium Oxide [Magnesium] 400 mg PO DAILY RX: Furosemide [Lasix] 30 mg PO BID RX: Clopidogrel Bisulfate [Plavix] 75 mg PO DAILY #30 tablet RX: Aspirin 81 mg PO DAILY #30 tab.chew RX: Budesonide/Formoterol 80/4.5 [Symbicort 80/4.5] 2 puff IH BID RX: Gabapentin 800 mg PO TID RX: Ipratropium/Albuterol Sulfate [Combivent Respimat Inhal [place]] 1 puff IH QID PRN PRN Reason: Shortness Of Breath RX: Brimonidine 0.2% [Alphagan] 1 drop RIGHT EYE BID RX: Etanercept [Enbrel Sureclick] 50 mg SQ QWEEK RX: Latanoprost/Pf [Latanoprost 0.005% Eye Drop] 1 drop RIGHT EYE HS RX: Varenicline [Chantix] 1 mg PO BID RX: Lisinopril [Zestril] 10 mg PO DAILY RX: Metoprolol Succinate [Toprol Xl] 25 mg PO DAILY Home Medications: RX: Pantoprazole Sodium [Protonix] 40 mg PO DAILY 09/27/17 [History] RX: Aspirin 81 mg PO DAILY #30 tab.chew 03/06/19 [Rx] RX: Budesonide/Formoterol 80/4.5 [Symbicort 80/4.5] 2 puff IH BID 03/06/19 [History] RX: Clopidogrel Bisulfate [Plavix] 75 mg PO DAILY #30 tablet 03/06/19 [Rx] RX: Furosemide [Lasix] 30 mg PO BID 03/06/19 [History] RX: Gabapentin 800 mg PO TID 03/06/19 [History] RX: Ipratropium/Albuterol Sulfate [Combivent Respimat Inhal [place]] 1 puff IH QID PRN 03/06/19 [History] RX: Magnesium Oxide [Magnesium] 400 mg PO DAILY 03/06/19 [History] RX: Brimonidine 0.2% [Alphagan] 1 drop RIGHT EYE BID 07/01/19 [History] RX: Etanercept [Enbrel Sureclick] 50 mg SQ QWEEK 07/01/19 [History] RX: Latanoprost/Pf [Latanoprost 0.005% Eye Drop] 1 drop RIGHT EYE HS 07/01/19 [History] RX: Lisinopril [Zestril] 10 mg PO DAILY 07/01/19 [History] RX: Metoprolol Succinate [Toprol Xl] 25 mg PO DAILY 07/01/19 [History] RX: Varenicline [Chantix] 1 mg PO BID 07/01/19 [History] Allergies/Adverse Reactions: Allergy/AdvReac Type Severity Reaction Status Date / Time Amoxicillin Allergy Anaphylaxis Verified 03/06/19 16:02 Penicillins [PCN] Allergy Anaphylaxis Verified 03/06/19 16:02 Date of admission: 07/01/19 15:59 [facility] care physician: [facility] Consults: 07/03/19 07:27 Consult to Cardiology [CONS] Routine Comment: Consulting Provider: Cardiology [place] Reason for Consult: History of heart failure wiht reduced EF Presented with exertonal dyspnea Call Completed: Yes - Constitutional Vitals: Temp Pulse Resp BP Pulse Ox 98.0 F 97 14 107/66 97 07/03/19 10:21 07/03/19 10:21 07/03/19 10:21 07/03/19 10:21 07/03/19 10:21 Exam: General: Alert and oriented, no physical distress, able to follow commands. HEENT: No thyromegaly, no lymphadenopathy, no discharge. Eyes: No discharge. Normal conjuctiva, no icterus Respiratory: Normal vesicular breathing, no added sounds, breathing equal in both sides. CVS: Normal heart sounds, no murmurs, regular rhthm, no edema. Appears euvolemic/ Extremities: No peripheral edema, peripheral pulses intact. Lymph nodes: No lymphadenopathy Gastrointestinal: Soft, nontender abdomen, normal abdominal sounds. No distention noted. Genitourinary: No paravertebral tenderness. Skin: No rash, ulcers or wound. Neurological: Alert and oriented. No focal deficits. Cranial nerves II-XII intact. - Patient Status Disposition: Home, Self-Care Condition: Good Functional capacity at discharge: independent ambulation Overall status at discharge: patient is progressing back to baseline - Discharge Instructions Instructions: Heart Failure (DC), Low Sodium Diet (DC), Fluid Restriction (DC) Follow Up With: EDDIE,PCP [Primary Care Provider] - 07/09/19 10:45 am (Please follow up as schedule....) - Diet and Activity Activity: increase activity as tolerated Diet: low salt diet
[2019-07-03] MEDS ORDERED: Gabapentin 400 MG CAPSULE PO SCH (15:00)
== END 2019-07-03 15:31 | disposition home or self-care (01) ==
LOC: EMEROOARM 13:34 → 2ANU 13:34 → SUATTDRO 15:59 → 2ANU 16:19
PROVIDERS: ADMIT Pharmacist; ATTEND Internal Medicine

== ENCOUNTER 2019-11-25 00:52 | Inpatient (IN) ==
[2019-11-25] MEDS ORDERED: Azithromycin 500 MG in 0.9 % Sodium Chloride 250 ML IVPB ONE (00:58)
[2019-11-25] MEDS ORDERED: cefTRIAXone 1,000 MG in Water for inj. (sterile) 10 ML IVP ONE ×2 (00:58→02:00)
[2019-11-25] MEDS ORDERED: methylPREDNISolone 125 MG/2 ML VIAL IVP ONE (01:02)
[2019-11-25 01:29] LABS: Hematocrit 33.2 % (37.5-50.1); Hemoglobin 11.3 g/dL (12.9-16.9); Mean Corpuscular Hemoglobin 30.4 pg (28.0-33.3); Mean Corpuscular Volume 89.2 fL (83.0-100.0); Red Blood Count 3.72 M/mcL (4.19-5.50); Red Cell Distribution Width 18.3 % (11.5-14.5); White Blood Count 22.9 K/mcL (4.3-11.1)
[2019-11-25] MEDS ORDERED: Azithromycin 500 MG VIAL ONE (01:33)
[2019-11-25 01:34] LABS: INR 1.1; Prothrombin Time 12.7 Seconds (9.4-12.1)
[2019-11-25 01:36] LABS: Bilirubin,Urine Small (Negative); Blood,Urine Small (Negative); Clarity,Urine Cloudy (Clear); Color,Urine Dark Yellow (Yellow); Glucose,Urine (UA) Normal (Normal); Ketones,Urine Trace mg/dL (Negative); Leukocyte Esterase,Urine Negative (Negative); Nitrite,Urine Negative (Negative); PH,Urine 5.5 pH Units (5.0-8.0); Protein,Urine 100 mg/dL (Neg-Trace); Specific Gravity,Urine 1.021 (1.010-1.025); Urobilinogen,Urine Normal (Normal)
[2019-11-25 01:37] LABS: Activated Partial Thrombo Time 24.7 Seconds (26.0-36.0)
[2019-11-25] MEDS ORDERED: 0.9 % Sodium Chloride 250 ML ONE (01:37)
[2019-11-25 01:38] LABS: Bacteria,Urine None Seen per hpf (None-Few); RBC,Urine 0-3 per hpf (0-3); Squamous Epithelial Cell,Urine Many per lpf (None-Few)
[2019-11-25] MEDS: 0.9 % Sodium Chloride 1,000 ML IV ONE ×2 (01:46→03:19)
[2019-11-25 01:47] LABS: Amphetamine Screen,Urine Negative ng/mL (Cutoff=1000); Barbiturate Screen,Urine Negative ng/mL (Cutoff=200); Benzodiazepines Screen,Urine Negative ng/mL (Cutoff=200); Cannabinoid Screen,Urine Negative ng/mL (Cutoff = 50); Cocaine Screen,Urine Negative ng/mL (Cutoff= 300); Opiate Screen,Urine Negative ng/mL (Cutoff=300); Phencyclidine Screen,Urine Negative ng/mL (Cutoff=25)
[2019-11-25 01:50] LABS: Alanine Aminotransferase 45 Units/L (7-52); Albumin 2.9 g/dL (3.5-5.7); Albumin/Globulin Ratio 1.1 (1.1-2.2); Alkaline Phosphatase 309 Units/L (34-104); Aspartate Amino Transferase 43 Units/L (13-39); BUN/Creatinine Ratio 26 (6-26); Bilirubin,Direct 0.7 mg/dL (0.0-0.2); Bilirubin,Indirect 0.6 mg/dL (0.0-1.0); Bilirubin,Total 1.3 mg/dL (0.3-1.0); Blood Urea Nitrogen 44 mg/dL (8-23); Calcium 8.4 mg/dL (8.6-10.3); Carbon Dioxide 19 mEq/L (23-29); Chloride 98 mEq/L (98-107); Globulin 2.6 g/dL (2.4-3.5); Glucose 80 mg/dL (70-105); Osmolality,Calculated 284 (280-300); Potassium 4.5 mEq/L (3.5-5.1); Sodium 132 mEq/L (136-145); Total Protein 5.5 g/dL (6.4-8.9); Troponin I 1.13 ng/mL (< 0.04); eGFR For African Americans 49 (> 60); eGFR For Non-African Americans 40 (> 60)
[2019-11-25] MEDS ORDERED: Aspirin 325 MG TABLET PO ONE (01:52)
[2019-11-25 02:03] LABS: Platelet Count 56 K/mcL (140-400)
[2019-11-25 02:05] LABS: Lymphocytes # 0.9 K/mcL (0.6-4.6); Monocytes # 0.5 K/mcL (0.0-1.3); Neutrophils # 21.1 K/mcL (1.6-8.9); Platelet Estimate Decreased (Normal)
[2019-11-25 02:23] LABS: Ethanol < 10 mg/dL (Less than 10)
[2019-11-25] MEDS ORDERED: 0.9 % Sodium Chloride 1,000 ML IV ONE (02:57)
[2019-11-25] MEDS ORDERED: Ipratropium/Albuterol Neb 3 ML IH ONE (02:57)
[2019-11-25] MEDS ORDERED: Naloxone 0.4 MG/ML INJ IVP PRN (05:16)
[2019-11-25 08:28] LABS: Calcium 7.9 mg/dL (8.6-10.3); Potassium 3.9 mEq/L (3.5-5.1)
[2019-11-25 08:58] LABS: Adenovirus Not Detected (Not Detect); Bordetella Pertussis Not Detected (Not Detect); Chlamydophila pneumoniae Not Detected (Not Detect); Coronavirus 229E Not Detected (Not Detect); Coronavirus HKU1 Not Detected (Not Detect); Coronavirus NL63 Not Detected (Not Detect); Coronavirus OC43 Not Detected (Not Detect); Human Metapneumovirus Not Detected (Not Detect); Human Rhinovirus/Enterovirus Not Detected (Not Detect); Influenza A Subtype 2009 H1 Not Detected (Not Detect); Influenza B Not Detected (Not Detect); Mycoplasma pneumoniae Not Detected (Not Detect); Parainfluenza Virus 1 Not Detected (Not Detect); Parainfluenza Virus 2 Not Detected (Not Detect); Parainfluenza Virus 3 Not Detected (Not Detect); Parainfluenza Virus 4 Not Detected (Not Detect); Respiratory Syncytial Virus Not Detected (Not Detect)
[2019-11-25] MEDS: Furosemide 40 MG/4 ML VIAL IVP SCH (09:05)
[2019-11-25] MEDS ORDERED: *HR* Heparin 5,000 UNIT/ML VIAL IVP PRN ×2 (13:23)
[2019-11-25] MEDS ORDERED: *HR* Metoprolol 5 MG/5 ML VIAL IVP ONE ×2 (13:31→13:34)
[2019-11-25] MEDS ORDERED: 0.9 % Sodium Chloride 250 ML IVC ONE (13:54)
[2019-11-25] MEDS ORDERED: Cefepime HCl 1,000 MG in 0.9 % Sodium Chloride Mini Bag 100 ML IVPB SCH (14:00)
[2019-11-25] MEDS: Metoprolol XL (24 HR) Succ 50 MG TAB.ER.24H PO SCH (14:56)
[2019-11-25] MEDS: Gabapentin 400 MG CAPSULE PO SCH ×2 (14:57→21:16)
[2019-11-25] MEDS: Cefepime HCl 1,000 MG in Water for inj. (sterile) 10 ML IVP SCH (15:08)
[2019-11-25 15:09] LABS: Hemoglobin 9.9 g/dL (12.9-16.9); Mean Corpuscular Volume 86.7 fL (83.0-100.0)
[2019-11-25 15:11] LABS: Hematocrit 28.6 % (37.5-50.1); Immature Platelets 13.2 % (1.1-6.1); Mean Corpuscular HGB Conc 34.6 g/dL (31.6-35.5); Red Cell Distribution Width 18.4 % (11.5-14.5); White Blood Count 18.7 K/mcL (4.3-11.1)
[2019-11-25 15:12] LABS: Heparin anti-factor XA UFH < 0.04 IU/mL (0.30-0.70); INR 1.3; Prothrombin Time 14.5 Seconds (9.4-12.1)
[2019-11-25 15:19] LABS: Platelet Count 36 K/mcL (140-400)
[2019-11-25] MEDS: Heparin 25,000 UNIT/250 ML D5W 25,000 UNIT/250 ML IV.SOLN IVC SCH ×2 (15:33→15:44)
[2019-11-25 16:53] LABS: Lymphocytes # 0.4 K/mcL (0.6-4.6)
[2019-11-25] MEDS ORDERED: *HR* Metoprolol 5 MG/5 ML VIAL IVP PRN (17:14)
[2019-11-25 17:19] LABS: Monocytes # 0.4 K/mcL (0.0-1.3); Toxic Granulation Present (Not Present)
[2019-11-25 17:20] LABS: Platelet Estimate Decreased (Normal)
[2019-11-25 18:47] LABS: Vitamin B12 562 pg/mL (250-1100)
[2019-11-25 19:23] LABS: Hepatitis B Surface Antigen Nonreactive (Nonreactive)
[2019-11-25 19:53] LABS: Hepatitis A Antibody IgM Nonreactive (Nonreactive)
[2019-11-25 19:54] LABS: Hepatitis C Virus Antibody Nonreactive (Nonreactive)
[2019-11-25 19:55] LABS: Hepatitis B Core IgM Nonreactive (Nonreactive)
[2019-11-25] MEDS ORDERED: Perflutren Lipid Microsphere 1.3 ML in 0.9 % Sodium Chloride 8.7 ML IVP ONE (19:58)
[2019-11-25] MEDS ORDERED: Melatonin 3 MG TABLET PO ONE (20:48)
[2019-11-25] MEDS: Latanoprost 2.5 ML BOTTLE RIGHT EYE SCH (21:20)
[2019-11-26 00:52] LABS: Acinetobacter baumannii by PCR Not Detected (Not Detect); Candida albicans by PCR Not Detected (Not Detect); Candida glabrata by PCR Not Detected (Not Detect); Candida krusei by PCR Not Detected (Not Detect); Candida parapsilosis by PCR Not Detected (Not Detect); Candida tropicalis by PCR Not Detected (Not Detect); Enterobacter cloacae Cmplx PCR Not Detected (Not Detect); Enterobacteriaceae by PCR Not Detected (Not Detect); Enterococcus by PCR Not Detected (Not Detect); Escherichia coli by PCR Not Detected (Not Detect); Klebsiella oxytoca by PCR Not Detected (Not Detect); Klebsiella pneumoniae by PCR Not Detected (Not Detect); Proteus by PCR Not Detected (Not Detect); Pseudomonas aeruginosa by PCR Not Detected (Not Detect); Serratia marcescens by PCR Not Detected (Not Detect); Staphylococcus aureus by PCR Not Detected (Not Detect); Staphylococcus by PCR Not Detected (Not Detect); Streptococcus agalactiae(B)PCR Not Detected (Not Detect); Streptococcus by PCR Not Detected (Not Detect); Streptococcus pneumoniae PCR Not Detected (Not Detect); Streptococcus pyogenes (A) PCR Not Detected (Not Detect)
[2019-11-26] MEDS: Cefepime HCl 1,000 MG in Water for inj. (sterile) 10 ML IVP SCH ×2 (03:15→15:01)
[2019-11-26 04:11] LABS: Basophils % 0.1 %
[2019-11-26 04:12] LABS: Hematocrit 25.3 % (37.5-50.1); Hemoglobin 8.9 g/dL (12.9-16.9); Immature Granulocytes % 1.5 % (0-4); Immature Platelets 14.5 % (1.1-6.1); Lymphocytes % 3.2 %; Mean Corpuscular HGB Conc 35.2 g/dL (31.6-35.5); Mean Corpuscular Hemoglobin 30.2 pg (28.0-33.3); Mean Corpuscular Volume 85.8 fL (83.0-100.0); Mean Platelet Volume 12.7 fL (9.4-12.4); Red Blood Count 2.95 M/mcL (4.19-5.50); Red Cell Distribution Width 18.1 % (11.5-14.5); Segmented Neutrophils % 87.5 %; White Blood Count 19.7 K/mcL (4.3-11.1)
[2019-11-26 04:13] LABS: Lymphocytes # 0.6 K/mcL (0.6-4.6); Monocytes # 1.5 K/mcL (0.0-1.3); Monocytes % 7.7 %; Neutrophils # 17.2 K/mcL (1.6-8.9); Nucleated Red Blood Cells 0.1 /100 WBC (0)
[2019-11-26 04:21] LABS: Platelet Count 40 K/mcL (140-400)
[2019-11-26 04:33] LABS: Calcium 8.1 mg/dL (8.6-10.3); Potassium 3.7 mEq/L (3.5-5.1)
[2019-11-26 04:36] LABS: % Iron Saturation 6 % (20-55); Iron 15 mcg/dL (65-175); Transferrin 171 mg/dL (203-362)
[2019-11-26 04:49] LABS: Ferritin 116 ng/mL (20-250)
[2019-11-26] MEDS: Furosemide 40 MG/4 ML VIAL IVP SCH (08:09)
[2019-11-26] MEDS: Magnesium Oxide 400 MG TABLET PO SCH (08:09)
[2019-11-26] MEDS: Metoprolol XL (24 HR) Succ 50 MG TAB.ER.24H PO SCH (08:09)
[2019-11-26] MEDS: predniSONE 5 MG TABLET PO SCH (08:09)
[2019-11-26] MEDS: Gabapentin 400 MG CAPSULE PO SCH ×3 (08:09→21:04)
[2019-11-26] MEDS: LEFLUNOMIDE 20 MG PO SCH (08:10)
[2019-11-26 08:42] LABS: Albumin 2.4 g/dL (3.5-5.7); Bilirubin,Direct 0.2 mg/dL (0.0-0.2); Bilirubin,Indirect 0.3 mg/dL (0.0-1.0); Bilirubin,Total 0.5 mg/dL (0.3-1.0); Globulin 2.4 g/dL (2.4-3.5); Total Protein 4.8 g/dL (6.4-8.9)
[2019-11-26] MEDS ORDERED: Metoprolol XL (24 HR) Succ 25 MG TAB.ER.24H PO SCH (09:00)
[2019-11-26] MEDS: metroNIDAZOLE 500 MG TABLET PO SCH ×2 (15:00→21:04)
[2019-11-26] MEDS: Latanoprost 2.5 ML BOTTLE RIGHT EYE SCH (21:05)
[2019-11-26] MEDS ORDERED: Melatonin 3 MG TABLET PO ONE (21:40)
[2019-11-27 01:44] LABS: Basophils % 0.1 %; Eosinophils % 0.2 %; Hematocrit 26.2 % (37.5-50.1); Hemoglobin 8.7 g/dL (12.9-16.9); Immature Granulocytes % 1.2 % (0-4); Lymphocytes # 1.1 K/mcL (0.6-4.6); Lymphocytes % 6.9 %; Mean Corpuscular HGB Conc 33.2 g/dL (31.6-35.5); Mean Corpuscular Hemoglobin 29.3 pg (28.0-33.3); Mean Corpuscular Volume 88.2 fL (83.0-100.0); Mean Platelet Volume 12.6 fL (9.4-12.4); Monocytes # 1.2 K/mcL (0.0-1.3); Monocytes % 7.4 %; Neutrophils # 13.6 K/mcL (1.6-8.9); Red Blood Count 2.97 M/mcL (4.19-5.50); Red Cell Distribution Width 18.3 % (11.5-14.5); Segmented Neutrophils % 84.2 %; White Blood Count 16.1 K/mcL (4.3-11.1)
[2019-11-27 01:46] LABS: Platelet Count 59 K/mcL (140-400)
[2019-11-27 02:01] LABS: BUN/Creatinine Ratio 41 (6-26); Blood Urea Nitrogen 57 mg/dL (8-23); Carbon Dioxide 26 mEq/L (23-29); Chloride 99 mEq/L (98-107); Glucose 113 mg/dL (70-105); Osmolality,Calculated 293 (280-300); Potassium 3.9 mEq/L (3.5-5.1); Sodium 133 mEq/L (136-145); eGFR For African Americans > 60 (> 60); eGFR For Non-African Americans 51 (> 60)
[2019-11-27] MEDS: Cefepime HCl 1,000 MG in Water for inj. (sterile) 10 ML IVP SCH ×2 (03:38→14:25)
[2019-11-27] MEDS: Magnesium Oxide 400 MG TABLET PO SCH (07:44)
[2019-11-27] MEDS: metroNIDAZOLE 500 MG TABLET PO SCH ×3 (07:45→20:10)
[2019-11-27] MEDS: predniSONE 5 MG TABLET PO SCH (07:46)
[2019-11-27] MEDS: Gabapentin 400 MG CAPSULE PO SCH ×3 (07:46→20:09)
[2019-11-27] MEDS: LEFLUNOMIDE 20 MG PO SCH (07:47)
[2019-11-27] MEDS: Metoprolol XL (24 HR) Succ 50 MG TAB.ER.24H PO SCH (07:47)
[2019-11-27 08:02] LABS: Alanine Aminotransferase 32 Units/L (7-52); Albumin 2.4 g/dL (3.5-5.7); Alkaline Phosphatase 250 Units/L (34-104); Aspartate Amino Transferase 25 Units/L (13-39); Bilirubin,Direct 0.2 mg/dL (0.0-0.2); Bilirubin,Indirect 0.3 mg/dL (0.0-1.0); Bilirubin,Total 0.5 mg/dL (0.3-1.0); Globulin 2.5 g/dL (2.4-3.5); Total Protein 4.9 g/dL (6.4-8.9)
[2019-11-27] MEDS ORDERED: Aminoglycoside Consult 1 EACH MC ONE (08:37)
[2019-11-27] MEDS: Nicotine 21 MG PATCH.TD24 TD PRN (09:09)
[2019-11-27] MEDS: Spironolactone 25 MG TABLET PO SCH (15:54)
[2019-11-27] MEDS ORDERED: Bumetanide 1 MG TABLET PO ONE (17:00)
[2019-11-27] MEDS: Acetaminophen 325 MG TABLET PO PRN (20:10)
[2019-11-27] MEDS: Furosemide 20 MG TABLET PO SCH (20:10)
[2019-11-27] MEDS: Latanoprost 2.5 ML BOTTLE RIGHT EYE SCH (20:11)
[2019-11-28 01:31] LABS: Basophils % 0.3 %; Eosinophils % 0.4 %; Mean Corpuscular Hemoglobin 29.4 pg (28.0-33.3)
[2019-11-28 01:34] LABS: Eosinophils # 0.1 K/mcL (0.0-0.6); Hematocrit 29.6 % (37.5-50.1); Hemoglobin 9.9 g/dL (12.9-16.9); Immature Granulocytes % 2.3 % (0-4); Immature Platelets 7.8 % (1.1-6.1); Lymphocytes # 1.3 K/mcL (0.6-4.6); Lymphocytes % 10.6 %; Mean Corpuscular HGB Conc 33.4 g/dL (31.6-35.5); Mean Corpuscular Volume 87.8 fL (83.0-100.0); Mean Platelet Volume 13.1 fL (9.4-12.4); Monocytes % 8.3 %; Red Blood Count 3.37 M/mcL (4.19-5.50); Red Cell Distribution Width 18.4 % (11.5-14.5); Segmented Neutrophils % 78.1 %
[2019-11-28 01:37] LABS: Neutrophils # 9.4 K/mcL (1.6-8.9); Platelet Count 61 K/mcL (140-400)
[2019-11-28 01:50] LABS: BUN/Creatinine Ratio 40 (6-26); Blood Urea Nitrogen 46 mg/dL (8-23); Calcium 8.3 mg/dL (8.6-10.3); Carbon Dioxide 26 mEq/L (23-29); Chloride 100 mEq/L (98-107); Glucose 110 mg/dL (70-105); Osmolality,Calculated 289 (280-300); Potassium 4.2 mEq/L (3.5-5.1); Sodium 133 mEq/L (136-145); eGFR For African Americans > 60 (> 60); eGFR For Non-African Americans > 60 (> 60)
[2019-11-28] MEDS: Cefepime HCl 1,000 MG in Water for inj. (sterile) 10 ML IVP SCH (03:12)
[2019-11-28] MEDS: metroNIDAZOLE 500 MG TABLET PO SCH ×2 (08:28→14:15)
[2019-11-28] MEDS: Furosemide 20 MG TABLET PO SCH ×2 (08:29→19:51)
[2019-11-28] MEDS: LEFLUNOMIDE 20 MG PO SCH (08:29)
[2019-11-28] MEDS: Gabapentin 400 MG CAPSULE PO SCH ×3 (08:29→19:51)
[2019-11-28] MEDS: predniSONE 5 MG TABLET PO SCH (08:29)
[2019-11-28] MEDS: Magnesium Oxide 400 MG TABLET PO SCH (08:29)
[2019-11-28] MEDS: Metoprolol XL (24 HR) Succ 50 MG TAB.ER.24H PO SCH (08:29)
[2019-11-28] MEDS: Spironolactone 25 MG TABLET PO SCH (08:29)
[2019-11-28] MEDS: Nicotine 21 MG PATCH.TD24 TD PRN (08:36)
[2019-11-28] MEDS: Acetaminophen 325 MG TABLET PO PRN (08:37)
[2019-11-28] MEDS ORDERED: Metoprolol XL (24 HR) Succ 25 MG TAB.ER.24H PO ONE (16:06)
[2019-11-28] MEDS ORDERED: Ondansetron ODT 4 MG TAB.RAPDIS SL PRN (16:13)
[2019-11-28] MEDS: Latanoprost 2.5 ML BOTTLE RIGHT EYE SCH (19:51)
[2019-11-29 02:35] LABS: Basophils % 0.5 %; Mean Platelet Volume 12.7 fL (9.4-12.4); Nucleated Red Blood Cells 0.1 /100 WBC (0)
[2019-11-29 02:38] LABS: Basophils # 0.1 K/mcL (0.0-0.2); Eosinophils # 0.2 K/mcL (0.0-0.6); Eosinophils % 1.1 %; Hemoglobin 9.6 g/dL (12.9-16.9); Immature Granulocytes % 5.9 % (0-4); Immature Platelets 7.7 % (1.1-6.1); Lymphocytes # 1.9 K/mcL (0.6-4.6); Lymphocytes % 12.3 %; Mean Corpuscular Hemoglobin 29.3 pg (28.0-33.3); Mean Corpuscular Volume 91.5 fL (83.0-100.0); Monocytes # 1.4 K/mcL (0.0-1.3); Monocytes % 9.1 %; Neutrophils # 11.2 K/mcL (1.6-8.9); Red Blood Count 3.28 M/mcL (4.19-5.50); Red Cell Distribution Width 18.2 % (11.5-14.5); Segmented Neutrophils % 71.1 %; White Blood Count 15.8 K/mcL (4.3-11.1)
[2019-11-29 02:48] LABS: Platelet Count 78 K/mcL (140-400)
[2019-11-29 02:58] LABS: BUN/Creatinine Ratio 28 (6-26); Blood Urea Nitrogen 38 mg/dL (8-23); Calcium 8.5 mg/dL (8.6-10.3); Carbon Dioxide 32 mEq/L (23-29); Chloride 95 mEq/L (98-107); Glucose 104 mg/dL (70-105); Osmolality,Calculated 293 (280-300); Potassium 3.7 mEq/L (3.5-5.1); Sodium 137 mEq/L (136-145); eGFR For African Americans > 60 (> 60); eGFR For Non-African Americans 53 (> 60)
[2019-11-29 03:10] LABS: Platelet Estimate Decreased (Normal); Target Cells 1+ (Not Present)
[2019-11-29] MEDS: Nicotine 21 MG PATCH.TD24 TD PRN (07:45)
[2019-11-29] MEDS: Spironolactone 25 MG TABLET PO SCH (07:46)
[2019-11-29] MEDS: Gabapentin 400 MG CAPSULE PO SCH ×3 (07:46→21:52)
[2019-11-29] MEDS: predniSONE 5 MG TABLET PO SCH (07:46)
[2019-11-29] MEDS: Metoprolol XL (24 HR) Succ 50 MG TAB.ER.24H PO SCH (07:46)
[2019-11-29] MEDS: Magnesium Oxide 400 MG TABLET PO SCH (07:47)
[2019-11-29] MEDS: LEFLUNOMIDE 20 MG PO SCH (07:55)
[2019-11-29] MEDS ORDERED: cefTRIAXone 2,000 MG in 0.9 % Sodium Chloride Mini Bag 100 ML IVPB SCH (09:00)
[2019-11-29 20:50] LABS: Kappa Qnt Free Light Chains 3.97 mg/dL (0.33-1.94); Lambda Qnt Free Light Chains 1.76 mg/dL (0.57-2.63)
[2019-11-29] MEDS ORDERED: Apixaban 5 MG TABLET PO SCH (21:00)
[2019-11-29] MEDS: Latanoprost 2.5 ML BOTTLE RIGHT EYE SCH (21:53)
[2019-11-29] MEDS: Acetaminophen 325 MG TABLET PO PRN (23:43)
[2019-11-30] MEDS ORDERED: Isovue-370 500 ML BOTTLE IVP ONE (00:25)
[2019-11-30] MEDS ORDERED: 0.9 % Sodium Chloride 1,000 ML IVC ONE (00:29)
[2019-11-30] MEDS ORDERED: Acetaminophen IV 1,000 MG/100 ML INFUS..BTL IVPB ONE (00:29)
[2019-11-30] MEDS ORDERED: 0.9 % Sodium Chloride 1,000 ML ONE (00:34)
[2019-11-30 00:57] LABS: Hematocrit 30.9 % (37.5-50.1); Hemoglobin 10.3 g/dL (12.9-16.9); Mean Corpuscular HGB Conc 33.3 g/dL (31.6-35.5); Mean Platelet Volume 11.7 fL (9.4-12.4); Red Cell Distribution Width 18.3 % (11.5-14.5); Segmented Neutrophils % 91.6 %
[2019-11-30 00:59] LABS: Basophils % 0.2 %; Eosinophils # 0.1 K/mcL (0.0-0.6); Eosinophils % 0.3 %; Immature Granulocytes % 2.9 % (0-4); Immature Platelets 5.9 % (1.1-6.1); Lymphocytes # 0.5 K/mcL (0.6-4.6); Lymphocytes % 2.4 %; Mean Corpuscular Hemoglobin 29.8 pg (28.0-33.3); Mean Corpuscular Volume 89.3 fL (83.0-100.0); Monocytes # 0.6 K/mcL (0.0-1.3); Monocytes % 2.6 %; Neutrophils # 19.9 K/mcL (1.6-8.9); Red Blood Count 3.46 M/mcL (4.19-5.50); White Blood Count 21.7 K/mcL (4.3-11.1)
[2019-11-30 01:00] LABS: VBG HCO3 28 mEq/L (21-27); VBG PCO2 40 mmHg (41-51); VBG PH 7.46 pH Units (7.32-7.42); VBG PO2 60 mmHg (25-50)
[2019-11-30 01:01] LABS: Platelet Count 81 K/mcL (140-400)
[2019-11-30 01:15] LABS: Alanine Aminotransferase 29 Units/L (7-52); Albumin 2.8 g/dL (3.5-5.7); Albumin/Globulin Ratio 1.1 (1.1-2.2); Alkaline Phosphatase 256 Units/L (34-104); Aspartate Amino Transferase 28 Units/L (13-39); BUN/Creatinine Ratio 30 (6-26); Bilirubin,Total 0.7 mg/dL (0.3-1.0); Blood Urea Nitrogen 38 mg/dL (8-23); Calcium 8.7 mg/dL (8.6-10.3); Carbon Dioxide 27 mEq/L (23-29); Chloride 98 mEq/L (98-107); Globulin 2.5 g/dL (2.4-3.5); Glucose 157 mg/dL (70-105); Osmolality,Calculated 286 (280-300); Potassium 4.5 mEq/L (3.5-5.1); Sodium 132 mEq/L (136-145); Total Protein 5.3 g/dL (6.4-8.9); eGFR For African Americans > 60 (> 60); eGFR For Non-African Americans 57 (> 60)
[2019-11-30 01:24] LABS: Platelet Estimate Decreased (Normal)
[2019-11-30] MEDS ORDERED: D5 IVPB SCH (04:00)
[2019-11-30] MEDS ORDERED: WATER IVPB SCH (04:00)
[2019-11-30] MEDS ORDERED: SULFAMETHOXAZOLE IVPB SCH (04:00)
[2019-11-30] MEDS ORDERED: TRIMETH IVPB SCH (04:00)
[2019-11-30 04:59] LABS: Red Cell Distribution Width 18.5 % (11.5-14.5)
[2019-11-30 05:00] LABS: Hematocrit 28.4 % (37.5-50.1); Mean Corpuscular HGB Conc 31.7 g/dL (31.6-35.5); Mean Corpuscular Hemoglobin 29.4 pg (28.0-33.3); Mean Corpuscular Volume 92.8 fL (83.0-100.0); Mean Platelet Volume 12.1 fL (9.4-12.4); Platelet Count 102 K/mcL (140-400); Red Blood Count 3.06 M/mcL (4.19-5.50); White Blood Count 29.3 K/mcL (4.3-11.1)
[2019-11-30 05:13] LABS: BUN/Creatinine Ratio 32 (6-26); Blood Urea Nitrogen 36 mg/dL (8-23); Calcium 8.3 mg/dL (8.6-10.3); Carbon Dioxide 26 mEq/L (23-29); Chloride 102 mEq/L (98-107); Glucose 105 mg/dL (70-105); Osmolality,Calculated 285 (280-300); Potassium 4.6 mEq/L (3.5-5.1); Sodium 133 mEq/L (136-145); eGFR For African Americans > 60 (> 60); eGFR For Non-African Americans > 60 (> 60)
[2019-11-30] MEDS: Spironolactone 25 MG TABLET PO SCH (08:13)
[2019-11-30] MEDS: Gabapentin 400 MG CAPSULE PO SCH ×3 (08:13→22:45)
[2019-11-30] MEDS: predniSONE 5 MG TABLET PO SCH (08:13)
[2019-11-30] MEDS: Magnesium Oxide 400 MG TABLET PO SCH (08:13)
[2019-11-30] MEDS: Metoprolol XL (24 HR) Succ 50 MG TAB.ER.24H PO SCH (08:13)
[2019-11-30] MEDS: Cefepime HCl 2,000 MG in Water for inj. (sterile) 20 ML IVP SCH ×2 (08:13→14:22)
[2019-11-30] MEDS: LEFLUNOMIDE 20 MG PO SCH (08:14)
[2019-11-30] MEDS: Nicotine 21 MG PATCH.TD24 TD PRN (08:16)
[2019-11-30 09:02] LABS: Alanine Aminotransferase 27 Units/L (7-52); Albumin 2.7 g/dL (3.5-5.7); Albumin/Globulin Ratio 1.1 (1.1-2.2); Alkaline Phosphatase 241 Units/L (34-104); Aspartate Amino Transferase 26 Units/L (13-39); Bilirubin,Direct 0.2 mg/dL (0.0-0.2); Bilirubin,Indirect 0.4 mg/dL (0.0-1.0); Bilirubin,Total 0.6 mg/dL (0.3-1.0); Globulin 2.4 g/dL (2.4-3.5); Total Protein 5.1 g/dL (6.4-8.9)
[2019-11-30 09:17] LABS: Bilirubin,Urine Negative (Negative); Blood,Urine Negative (Negative); Clarity,Urine Turbid (Clear); Color,Urine Yellow (Yellow); Glucose,Urine (UA) Normal (Normal); Ketones,Urine Negative (Negative); Leukocyte Esterase,Urine Negative (Negative); Nitrite,Urine Negative (Negative); Protein,Urine Negative (Neg-Trace); Specific Gravity,Urine 1.007 (1.010-1.025); Urobilinogen,Urine Normal (Normal)
[2019-11-30 09:20] LABS: Bacteria,Urine None Seen per hpf (None-Few); Hyaline Casts,Urine None Seen per lpf (None-Few); RBC,Urine 0-3 per hpf (0-3); Squamous Epithelial Cell,Urine None Seen per lpf (None-Few); WBC,Urine 0-3 per hpf (0-3)
[2019-11-30] MEDS: Latanoprost 2.5 ML BOTTLE RIGHT EYE SCH (22:45)
[2019-12-01] MEDS: Cefepime HCl 2,000 MG in Water for inj. (sterile) 20 ML IVP SCH ×3 (01:17→15:10)
[2019-12-01 03:35] LABS: Alpha 2 Globulin (PEP) 0.66 g/dL (0.48-1.05); Beta Globulin (PEP) 0.54 g/dL (0.48-1.10)
[2019-12-01 04:30] LABS: Hematocrit 28.1 % (37.5-50.1); Hemoglobin 9.2 g/dL (12.9-16.9); Mean Corpuscular HGB Conc 32.7 g/dL (31.6-35.5); Mean Corpuscular Hemoglobin 29.6 pg (28.0-33.3); Mean Corpuscular Volume 90.4 fL (83.0-100.0); Mean Platelet Volume 11.8 fL (9.4-12.4); Platelet Count 115 K/mcL (140-400); Red Blood Count 3.11 M/mcL (4.19-5.50); Red Cell Distribution Width 18.8 % (11.5-14.5)
[2019-12-01 04:32] LABS: White Blood Count 14.2 K/mcL (4.3-11.1)
[2019-12-01 04:55] LABS: BUN/Creatinine Ratio 26 (6-26); Blood Urea Nitrogen 34 mg/dL (8-23); Calcium 8.8 mg/dL (8.6-10.3); Carbon Dioxide 27 mEq/L (23-29); Chloride 101 mEq/L (98-107); Glucose 90 mg/dL (70-105); Osmolality,Calculated 285 (280-300); Potassium 5.3 mEq/L (3.5-5.1); Sodium 134 mEq/L (136-145); eGFR For African Americans > 60 (> 60); eGFR For Non-African Americans 55 (> 60)
[2019-12-01] MEDS ORDERED: 0.9 % Sodium Chloride 500 ML IVC ONE (08:39)
[2019-12-01] MEDS ORDERED: Lidocaine Viscous Oral Soln 15 ML SOLUTION MM PRN (08:39)
[2019-12-01 08:42] LABS: IFE Reflexed IFE Done
[2019-12-01 08:43] LABS: Immunoglobulin A 91 mg/dL (68-408); Immunoglobulin G 464 mg/dL (768-1632); Immunoglobulin M 408 mg/dL (35-263)
[2019-12-01] MEDS: *HR* Midazolam HCl 5 MG/5 ML VIAL IVP PRN ×3 (09:20→09:30)
[2019-12-01] MEDS: *HR* FentaNYL (PF) 100 MCG/2 ML VIAL IVP PRN ×2 (09:20→09:25)
[2019-12-01] MEDS: Gabapentin 400 MG CAPSULE PO SCH ×2 (10:51→15:11)
[2019-12-01] MEDS: Spironolactone 25 MG TABLET PO SCH (10:51)
[2019-12-01] MEDS: predniSONE 5 MG TABLET PO SCH (10:51)
[2019-12-01] MEDS: Metoprolol XL (24 HR) Succ 50 MG TAB.ER.24H PO SCH (10:51)
[2019-12-01] MEDS: Magnesium Oxide 400 MG TABLET PO SCH (10:52)
[2019-12-01] MEDS: LEFLUNOMIDE 20 MG PO SCH (10:55)
[2019-12-01] MEDS: Nicotine 21 MG PATCH.TD24 TD PRN (12:01)
[2019-12-01 16:01] VITALS: BP 120/81
[2019-12-01] MEDS ORDERED: Aminoglycoside Consult 1 EACH MC ONE (18:54)
== END 2019-12-01 18:55 | disposition short-term general hospital (02) | DRG 280 ==
LOC: EMEROOARM 00:52 → 2NNU 00:52
PROVIDERS: ADMIT Internal Medicine; ATTEND Internal Medicine

== ENCOUNTER 2020-01-24 22:10 | Inpatient (IN) ==
[2020-01-24 22:52] LABS: Basophils # 0.1 K/mcL (0.0-0.2); Basophils % 0.5 %; Eosinophils % 0.2 %; Hematocrit 27.3 % (37.5-50.1); Hemoglobin 8.1 g/dL (12.9-16.9); Immature Granulocytes % 0.6 % (0-4); Lymphocytes # 1.6 K/mcL (0.6-4.6); Lymphocytes % 15.7 %; Mean Corpuscular HGB Conc 29.7 g/dL (31.6-35.5); Mean Corpuscular Hemoglobin 26.9 pg (28.0-33.3); Mean Corpuscular Volume 90.7 fL (83.0-100.0); Mean Platelet Volume 11.6 fL (9.4-12.4); Monocytes # 1.1 K/mcL (0.0-1.3); Monocytes % 10.6 %; Neutrophils # 7.4 K/mcL (1.6-8.9); Platelet Count 383 K/mcL (140-400); Red Blood Count 3.01 M/mcL (4.19-5.50); Red Cell Distribution Width 15.7 % (11.5-14.5); Segmented Neutrophils % 72.4 %; White Blood Count 10.2 K/mcL (4.3-11.1)
[2020-01-24 22:56] LABS: INR 1.2; Prothrombin Time 13.5 Seconds (9.4-12.1)
[2020-01-24 22:59] LABS: Activated Partial Thrombo Time 30.8 Seconds (26.0-36.0)
[2020-01-24] MEDS ORDERED: Azithromycin 500 MG in 0.9 % Sodium Chloride 250 ML IVPB ONE (23:03)
[2020-01-24 23:18] LABS: Troponin I 0.05 ng/mL (< 0.04)
[2020-01-24] MEDS ORDERED: Aspirin 81 MG TAB.CHEW PO STA (23:28)
[2020-01-24] MEDS ORDERED: Cefepime HCl 2,000 MG in Water for inj. (sterile) 20 ML IVP ONE (23:41)
[2020-01-25 00:04] LABS: BUN/Creatinine Ratio 17 (6-26); Blood Urea Nitrogen 16 mg/dL (8-23); Calcium 8.4 mg/dL (8.6-10.3); Carbon Dioxide 23 mEq/L (23-29); Chloride 101 mEq/L (98-107); Glucose 116 mg/dL (70-105); Osmolality,Calculated 280 (280-300); Potassium 3.4 mEq/L (3.5-5.1); Sodium 134 mEq/L (136-145); eGFR For African Americans > 60 (> 60); eGFR For Non-African Americans > 60 (> 60)
[2020-01-25] MEDS ORDERED: Azithromycin 500 MG in 0.9 % Sodium Chloride 250 ML IVPB ONE (00:45)
[2020-01-25] MEDS ORDERED: Furosemide 40 MG/4 ML VIAL IVP ONE (00:48)
[2020-01-25] MEDS ORDERED: NON-FORMULARY MEDICATION 1 EACH EACH (Ipratropium/Albuterol Sulfate [Combivent Respimat In IH PRN (03:11)
[2020-01-25] MEDS ORDERED: *HR* Metoprolol 5 MG/5 ML VIAL IVP ONE (03:12)
[2020-01-25] MEDS ORDERED: Ipratropium 1 PUFF INHALER IH PRN (03:51)
[2020-01-25] MEDS: Metoprolol XL (24 HR) Succ 25 MG TAB.ER.24H PO SCH ×2 (04:30→20:25)
[2020-01-25] MEDS: Apixaban 5 MG TABLET PO SCH ×2 (04:30→18:16)
[2020-01-25 05:28] LABS: Troponin I 0.05 ng/mL (< 0.04)
[2020-01-25] MEDS: Budesonide/Formoterol 80/4.5 1 PUFF INH IH SCH ×2 (07:44→20:38)
[2020-01-25] MEDS: Aspirin Enteric Coated 81 MG Tablet PO SCH (08:35)
[2020-01-25] MEDS: Gabapentin 400 MG CAPSULE PO SCH ×3 (08:35→20:25)
[2020-01-25] MEDS ORDERED: Furosemide 20 MG/2 ML VIAL IVP SCH (09:00)
[2020-01-25] MEDS ORDERED: predniSONE 5 MG TABLET PO SCH (09:00)
[2020-01-25] MEDS ORDERED: Aminoglycoside Consult 1 EACH MC ONE (09:43)
[2020-01-25] MEDS: Cefepime HCl 1,000 MG in 0.9 % Sodium Chloride Mini Bag 100 ML IVPB SCH (11:40)
[2020-01-25] MEDS: Furosemide 40 MG/4 ML VIAL IVP SCH ×2 (15:29→18:07)
[2020-01-25] MEDS: methylPREDNISolone 125 MG/2 ML VIAL IVP SCH (15:29)
[2020-01-25 16:39] LABS: Amphetamine Screen,Urine Negative ng/mL (Cutoff=1000); Barbiturate Screen,Urine Negative ng/mL (Cutoff=200); Benzodiazepines Screen,Urine Negative ng/mL (Cutoff=200); Cannabinoid Screen,Urine Negative ng/mL (Cutoff = 50); Cocaine Screen,Urine Negative ng/mL (Cutoff= 300); Opiate Screen,Urine Negative ng/mL (Cutoff=300); Phencyclidine Screen,Urine Negative ng/mL (Cutoff=25)
[2020-01-25] MEDS: Azithromycin 500 MG in 0.9 % Sodium Chloride 250 ML IVPB SCH (18:16)
[2020-01-25] MEDS: Latanoprost 2.5 ML BOTTLE RIGHT EYE SCH (20:26)
[2020-01-25] MEDS ORDERED: Cefepime HCl 2,000 MG in Water for inj. (sterile) 20 ML IVP ONE (23:03)
[2020-01-26] MEDS: Cefepime HCl 1,000 MG in 0.9 % Sodium Chloride Mini Bag 100 ML IVPB SCH (00:47)
[2020-01-26] MEDS: methylPREDNISolone 125 MG/2 ML VIAL IVP SCH ×3 (00:48→16:20)
[2020-01-26 05:05] LABS: BUN/Creatinine Ratio 18 (6-26); Blood Urea Nitrogen 21 mg/dL (8-23); Calcium 8.4 mg/dL (8.6-10.3); Carbon Dioxide 26 mEq/L (23-29); Chloride 100 mEq/L (98-107); Glucose 168 mg/dL (70-105); Osmolality,Calculated 291 (280-300); Potassium 3.5 mEq/L (3.5-5.1); Sodium 137 mEq/L (136-145); eGFR For African Americans > 60 (> 60); eGFR For Non-African Americans > 60 (> 60)
[2020-01-26] MEDS: Apixaban 5 MG TABLET PO SCH ×2 (06:22→18:18)
[2020-01-26] MEDS: Budesonide/Formoterol 80/4.5 1 PUFF INH IH SCH ×2 (08:17→20:23)
[2020-01-26] MEDS: Gabapentin 400 MG CAPSULE PO SCH (09:38)
[2020-01-26] MEDS: Aspirin Enteric Coated 81 MG Tablet PO SCH (09:38)
[2020-01-26] MEDS: Furosemide 40 MG/4 ML VIAL IVP SCH ×2 (09:39→20:28)
[2020-01-26] MEDS ORDERED: Cefepime HCl 2,000 MG in 0.9 % Sodium Chloride Mini Bag 100 ML IVPB SCH (11:32)
[2020-01-26] MEDS: Cefepime HCl 2,000 MG in 0.9 % Sodium Chloride Mini Bag 100 ML IVPB SCH (12:37)
[2020-01-26] MEDS ORDERED: Gabapentin 400 MG CAPSULE PO SCH (15:00)
[2020-01-26] MEDS: Gabapentin 300 MG CAPSULE PO SCH ×2 (16:20→20:28)
[2020-01-26] MEDS: Azithromycin 500 MG in 0.9 % Sodium Chloride 250 ML IVPB SCH (18:18)
[2020-01-26] MEDS: Metoprolol XL (24 HR) Succ 25 MG TAB.ER.24H PO SCH (20:29)
[2020-01-27] MEDS: Cefepime HCl 2,000 MG in 0.9 % Sodium Chloride Mini Bag 100 ML IVPB SCH ×3 (00:26→23:53)
[2020-01-27] MEDS: Latanoprost 2.5 ML BOTTLE RIGHT EYE SCH ×2 (00:26→21:25)
[2020-01-27] MEDS: methylPREDNISolone 125 MG/2 ML VIAL IVP SCH ×4 (00:26→23:54)
[2020-01-27 03:01] LABS: Hematocrit 26.7 % (37.5-50.1); Hemoglobin 7.8 g/dL (12.9-16.9); Mean Corpuscular HGB Conc 29.2 g/dL (31.6-35.5); Mean Corpuscular Hemoglobin 26.1 pg (28.0-33.3); Mean Corpuscular Volume 89.3 fL (83.0-100.0); Mean Platelet Volume 11.8 fL (9.4-12.4); Platelet Count 456 K/mcL (140-400); Red Blood Count 2.99 M/mcL (4.19-5.50); Red Cell Distribution Width 15.7 % (11.5-14.5); White Blood Count 11.8 K/mcL (4.3-11.1)
[2020-01-27 03:26] LABS: BUN/Creatinine Ratio 26 (6-26); Blood Urea Nitrogen 33 mg/dL (8-23); Calcium 8.9 mg/dL (8.6-10.3); Carbon Dioxide 26 mEq/L (23-29); Chloride 99 mEq/L (98-107); Glucose 104 mg/dL (70-105); Magnesium 1.8 mg/dL (1.6-2.6); Osmolality,Calculated 290 (280-300); Potassium 3.7 mEq/L (3.5-5.1); Sodium 136 mEq/L (136-145); eGFR For African Americans > 60 (> 60); eGFR For Non-African Americans 56 (> 60)
[2020-01-27] MEDS: Apixaban 5 MG TABLET PO SCH ×2 (05:25→16:56)
[2020-01-27] MEDS: Budesonide/Formoterol 80/4.5 1 PUFF INH IH SCH ×2 (08:07→19:49)
[2020-01-27] MEDS: Furosemide 40 MG/4 ML VIAL IVP SCH ×2 (09:28→21:18)
[2020-01-27] MEDS: Aspirin Enteric Coated 81 MG Tablet PO SCH (09:28)
[2020-01-27] MEDS: Gabapentin 300 MG CAPSULE PO SCH ×3 (09:28→21:19)
[2020-01-27] MEDS: Azithromycin 500 MG in 0.9 % Sodium Chloride 250 ML IVPB SCH (16:56)
[2020-01-27] MEDS: Metoprolol XL (24 HR) Succ 25 MG TAB.ER.24H PO SCH (21:18)
[2020-01-27] MEDS ORDERED: Melatonin 3 MG TABLET PO ONE (21:43)
[2020-01-27] MEDS ORDERED: Nicotine 14 MG PATCH.TD24 TD SCH (21:45)
[2020-01-28] MEDS: Apixaban 5 MG TABLET PO SCH (05:43)
[2020-01-28 05:57] LABS: Calcium 8.3 mg/dL (8.6-10.3); Potassium 2.8 mEq/L (3.5-5.1)
[2020-01-28 06:13] LABS: Hematocrit 23.4 % (37.5-50.1); Immature Granulocytes % 0.6 % (0-4); Lymphocytes # 0.4 K/mcL (0.6-4.6); Lymphocytes % 3.2 %; Mean Corpuscular HGB Conc 29.9 g/dL (31.6-35.5); Mean Corpuscular Hemoglobin 26.4 pg (28.0-33.3); Mean Corpuscular Volume 88.3 fL (83.0-100.0); Mean Platelet Volume 11.3 fL (9.4-12.4); Monocytes # 0.4 K/mcL (0.0-1.3); Monocytes % 3.8 %; Neutrophils # 10.1 K/mcL (1.6-8.9); Nucleated Red Blood Cells 0.6 /100 WBC (0); Platelet Count 325 K/mcL (140-400); Red Blood Count 2.65 M/mcL (4.19-5.50); Red Cell Distribution Width 15.5 % (11.5-14.5); Segmented Neutrophils % 92.4 %; White Blood Count 10.9 K/mcL (4.3-11.1)
[2020-01-28] MEDS: Budesonide/Formoterol 80/4.5 1 PUFF INH IH SCH (07:46)
[2020-01-28] MEDS: Aspirin Enteric Coated 81 MG Tablet PO SCH (09:05)
[2020-01-28] MEDS: Gabapentin 300 MG CAPSULE PO SCH (09:06)
[2020-01-28] MEDS: methylPREDNISolone 125 MG/2 ML VIAL IVP SCH (09:10)
[2020-01-28] MEDS: Furosemide 40 MG/4 ML VIAL IVP SCH (10:04)
[2020-01-28 10:38] VITALS: BP 151/66
[2020-01-28] MEDS ORDERED: Furosemide 20 MG TABLET PO SCH (17:00)
[2020-01-28] MEDS ORDERED: Cefdinir 300 MG CAPSULE PO SCH (21:00)
[2020-01-29] MEDS ORDERED: predniSONE 20 MG TABLET PO SCH (09:00)
[2020-01-29] MEDS ORDERED: Metoprolol XL (24 HR) Succ 50 MG TAB.ER.24H PO SCH (09:00)
[2020-01-29] MEDS ORDERED: Azithromycin 250 MG TABLET PO SCH (09:00)
[2020-01-29] MEDS ORDERED: Magnesium Oxide 400 MG TABLET PO SCH (09:00)
== END 2020-01-28 11:11 | disposition home or self-care (01) | DRG 177 ==
LOC: EMEROOARM 22:10 → 2NENU 22:10 → 3BNU 01-27 01:18
PROVIDERS: ADMIT Student in an Organized Health Care Education/Training Program; ATTEND Student in an Organized Health Care Education/Training Program

== ENCOUNTER 2020-05-11 18:32 | Inpatient (IN) ==
[2020-05-11] MEDS ORDERED: *HR* Metoprolol 5 MG/5 ML VIAL IVP ONE (18:49)
[2020-05-11] MEDS ORDERED: *HR* Propofol 200 MG/20 ML VIAL IVP ONE ×2 (19:24→19:40)
[2020-05-11] MEDS ORDERED: 0.9 % Sodium Chloride 1,000 ML ONE (19:25)
[2020-05-11 19:33] LABS: Basophils % 0.4 %; Eosinophils # 0.1 K/mcL (0.0-0.6); Eosinophils % 0.6 %; Hematocrit 36.7 % (37.5-50.1); Hemoglobin 11.1 g/dL (12.9-16.9); Immature Granulocytes % 1.7 % (0-4); Lymphocytes # 1.4 K/mcL (0.6-4.6); Lymphocytes % 12.1 %; Mean Corpuscular HGB Conc 30.2 g/dL (31.6-35.5); Mean Corpuscular Hemoglobin 25.6 pg (28.0-33.3); Mean Corpuscular Volume 84.8 fL (83.0-100.0); Mean Platelet Volume 10.7 fL (9.4-12.4); Monocytes # 1.2 K/mcL (0.0-1.3); Monocytes % 10.5 %; Neutrophils # 8.4 K/mcL (1.6-8.9); Nucleated Red Blood Cells 0.7 /100 WBC (0); Platelet Count 296 K/mcL (140-400); Red Blood Count 4.33 M/mcL (4.19-5.50); Red Cell Distribution Width 22.5 % (11.5-14.5); Segmented Neutrophils % 74.7 %; White Blood Count 11.2 K/mcL (4.3-11.1)
[2020-05-11 19:44] LABS: INR 1.4; Prothrombin Time 15.7 Seconds (9.4-12.1)
[2020-05-11 19:46] LABS: Activated Partial Thrombo Time 26.7 Seconds (26.0-36.0)
[2020-05-11] MEDS ORDERED: 0.9 % Sodium Chloride 1,000 ML IVC ONE (19:50)
[2020-05-11 19:55] LABS: BUN/Creatinine Ratio 42 (6-26); Blood Urea Nitrogen 44 mg/dL (8-23); Calcium 9.2 mg/dL (8.6-10.3); Carbon Dioxide 26 mEq/L (23-29); Chloride 95 mEq/L (98-107); Glucose 66 mg/dL (70-105); Osmolality,Calculated 281 (280-300); Potassium 3.9 mEq/L (3.5-5.1); Sodium 131 mEq/L (136-145); eGFR For African Americans > 60 (> 60); eGFR For Non-African Americans > 60 (> 60)
[2020-05-11 20:02] LABS: Troponin I 0.25 ng/mL (< 0.04)
[2020-05-11] MEDS ORDERED: Cefepime HCl 2,000 MG in Water for inj. (sterile) 20 ML IVP STA (20:17)
[2020-05-11] MEDS ORDERED: *HR* Dextrose 50 % in Water (Vial) 50 ML VIAL ONE (20:28)
[2020-05-11] MEDS ORDERED: *HR* Dextrose 50 % in Water (Vial) 50 ML VIAL IVP ONE (20:30)
[2020-05-12 02:05] LABS: Bilirubin,Urine Negative (Negative); Blood,Urine Negative (Negative); Clarity,Urine Clear (Clear); Color,Urine Yellow (Yellow); Glucose,Urine (UA) Normal (Normal); Ketones,Urine Negative (Negative); Leukocyte Esterase,Urine Negative (Negative); Mucus,Urine Few per lpf (None-Few); Nitrite,Urine Negative (Negative); Protein,Urine 30 mg/dL (Neg-Trace); RBC,Urine 0-3 per hpf (0-3); Specific Gravity,Urine 1.026 (1.010-1.025); Urobilinogen,Urine Normal (Normal); WBC,Urine 0-3 per hpf (0-3)
[2020-05-12 02:10] LABS: Alanine Aminotransferase 53 Units/L (7-52); Albumin 3.9 g/dL (3.5-5.7); Albumin/Globulin Ratio 1.7 (1.1-2.2); Alkaline Phosphatase 632 Units/L (34-104); Aspartate Amino Transferase 39 Units/L (13-39); Bilirubin,Direct 0.4 mg/dL (0.0-0.2); Bilirubin,Indirect 0.5 mg/dL (0.0-1.0); Bilirubin,Total 0.9 mg/dL (0.3-1.0); Globulin 2.3 g/dL (2.4-3.5); Total Protein 6.2 g/dL (6.4-8.9)
[2020-05-12 02:26] LABS: Adenovirus Not Detected (Not Detect); Bordetella Pertussis Not Detected (Not Detect); Chlamydophila pneumoniae Not Detected (Not Detect); Coronavirus 229E Not Detected (Not Detect); Coronavirus HKU1 Not Detected (Not Detect); Coronavirus NL63 Not Detected (Not Detect); Coronavirus OC43 Not Detected (Not Detect); Human Metapneumovirus Not Detected (Not Detect); Human Rhinovirus/Enterovirus Not Detected (Not Detect); Influenza A Subtype 2009 H1 Not Detected (Not Detect); Influenza B Not Detected (Not Detect); Mycoplasma pneumoniae Not Detected (Not Detect); Parainfluenza Virus 1 Not Detected (Not Detect); Parainfluenza Virus 2 Not Detected (Not Detect); Parainfluenza Virus 3 Not Detected (Not Detect); Parainfluenza Virus 4 Not Detected (Not Detect); Respiratory Syncytial Virus Not Detected (Not Detect); SARS-CoV-2 Not Detected (Not Detect)
[2020-05-12] MEDS ORDERED: Naloxone 0.4 MG/ML INJ IVP PRN (02:43)
[2020-05-12] MEDS ORDERED: *HR* Promethazine 25 MG/ML VIAL IVP PRN (04:11)
[2020-05-12] MEDS ORDERED: Perflutren Lipid Microsphere 1.3 ML in 0.9 % Sodium Chloride 8.7 ML IVP PRN (04:15)
[2020-05-12] MEDS ORDERED: *HR* Heparin 5,000 UNIT/ML VIAL IVP ONE (04:15)
[2020-05-12] MEDS ORDERED: *HR* Heparin 5,000 UNIT/ML VIAL IVP PRN (04:15)
[2020-05-12] MEDS ORDERED: Heparin 25,000 UNIT/250 ML D5W 25,000 UNIT/250 ML IV.SOLN IVC SCH (04:30)
[2020-05-12] MEDS: Heparin 25,000 UNIT/250 ML D5W 25,000 UNIT/250 ML IV.SOLN IVC SCH (04:55)
[2020-05-12 05:11] LABS: Basophils % 0.3 %; Eosinophils # 0.1 K/mcL (0.0-0.6); Eosinophils % 0.8 %; Hematocrit 31.9 % (37.5-50.1); Hemoglobin 9.9 g/dL (12.9-16.9); Immature Granulocytes % 2.2 % (0-4); Lymphocytes # 1.4 K/mcL (0.6-4.6); Lymphocytes % 15.7 %; Mean Corpuscular Hemoglobin 26.1 pg (28.0-33.3); Mean Corpuscular Volume 84.2 fL (83.0-100.0); Mean Platelet Volume 10.2 fL (9.4-12.4); Monocytes # 0.9 K/mcL (0.0-1.3); Monocytes % 9.6 %; Neutrophils # 6.3 K/mcL (1.6-8.9); Nucleated Red Blood Cells 0.4 /100 WBC (0); Platelet Count 233 K/mcL (140-400); Red Blood Count 3.79 M/mcL (4.19-5.50); Red Cell Distribution Width 22.5 % (11.5-14.5); Segmented Neutrophils % 71.4 %; White Blood Count 8.9 K/mcL (4.3-11.1)
[2020-05-12 05:14] LABS: INR 1.4; Prothrombin Time 15.4 Seconds (9.4-12.1)
[2020-05-12 05:21] LABS: Heparin anti-factor XA UFH 1.13 IU/mL (0.30-0.70)
[2020-05-12 05:35] LABS: Alanine Aminotransferase 45 Units/L (7-52); Albumin 3.3 g/dL (3.5-5.7); Albumin/Globulin Ratio 1.7 (1.1-2.2); Alkaline Phosphatase 478 Units/L (34-104); Aspartate Amino Transferase 32 Units/L (13-39); BUN/Creatinine Ratio 38 (6-26); Bilirubin,Total 0.8 mg/dL (0.3-1.0); Blood Urea Nitrogen 43 mg/dL (8-23); Calcium 8.3 mg/dL (8.6-10.3); Carbon Dioxide 24 mEq/L (23-29); Chloride 100 mEq/L (98-107); Globulin 1.9 g/dL (2.4-3.5); Glucose 86 mg/dL (70-105); Osmolality,Calculated 284 (280-300); Phosphorous 2.9 mg/dL (2.7-4.5); Potassium 4.1 mEq/L (3.5-5.1); Sodium 132 mEq/L (136-145); Total Protein 5.2 g/dL (6.4-8.9); Troponin I 0.28 ng/mL (< 0.04); eGFR For African Americans > 60 (> 60); eGFR For Non-African Americans > 60 (> 60)
[2020-05-12] MEDS: levoFLOXacin 750 MG/150 ML 750 MG/150 ML BAG IVPB SCH (09:10)
[2020-05-12] MEDS: *HR* Heparin 5,000 UNIT/ML VIAL IVP PRN ×2 (12:37→18:55)
[2020-05-12] MEDS: Metoprolol XL (24 HR) Succ 50 MG TAB.ER.24H PO SCH (14:07)
[2020-05-12] MEDS: Aspirin Enteric Coated 81 MG Tablet PO SCH (14:40)
[2020-05-12] MEDS ORDERED: NON-FORMULARY MEDICATION 1 EACH EACH (Ipratropium/Albuterol Sulfate 1 PUFF) IH SCH (17:00)
[2020-05-12] MEDS: Ipratropium/Albuterol Neb 3 ML IH SCH ×2 (19:34→21:30)
[2020-05-12] MEDS: Gabapentin 400 MG CAPSULE PO SCH (20:15)
[2020-05-12] MEDS: Acetaminophen 325 MG TABLET PO PRN (20:15)
[2020-05-12] MEDS: Budesonide/Formoterol 80/4.5 1 PUFF INH IH SCH (21:30)
[2020-05-13 02:00] LABS: Basophils % 0.3 %; Eosinophils # 0.2 K/mcL (0.0-0.6); Eosinophils % 1.6 %; Hematocrit 32.2 % (37.5-50.1); Hemoglobin 9.9 g/dL (12.9-16.9); Immature Granulocytes % 2.4 % (0-4); Lymphocytes # 1.4 K/mcL (0.6-4.6); Lymphocytes % 14.7 %; Mean Corpuscular HGB Conc 30.7 g/dL (31.6-35.5); Mean Corpuscular Hemoglobin 26.5 pg (28.0-33.3); Mean Corpuscular Volume 86.1 fL (83.0-100.0); Mean Platelet Volume 10.6 fL (9.4-12.4); Monocytes # 0.7 K/mcL (0.0-1.3); Monocytes % 7.7 %; Neutrophils # 7.1 K/mcL (1.6-8.9); Nucleated Red Blood Cells 0.3 /100 WBC (0); Platelet Count 211 K/mcL (140-400); Red Blood Count 3.74 M/mcL (4.19-5.50); Red Cell Distribution Width 22.3 % (11.5-14.5); Segmented Neutrophils % 73.3 %; White Blood Count 9.6 K/mcL (4.3-11.1)
[2020-05-13 02:20] LABS: BUN/Creatinine Ratio 30 (6-26); Blood Urea Nitrogen 35 mg/dL (8-23); Calcium 8.1 mg/dL (8.6-10.3); Carbon Dioxide 23 mEq/L (23-29); Chloride 99 mEq/L (98-107); Glucose 102 mg/dL (70-105); Osmolality,Calculated 282 (280-300); Potassium 3.6 mEq/L (3.5-5.1); Sodium 132 mEq/L (136-145); eGFR For African Americans > 60 (> 60); eGFR For Non-African Americans > 60 (> 60)
[2020-05-13] MEDS: Heparin 25,000 UNIT/250 ML D5W 25,000 UNIT/250 ML IV.SOLN IVC SCH (02:27)
[2020-05-13] MEDS: Ipratropium/Albuterol Neb 3 ML IH SCH ×4 (03:27→22:25)
[2020-05-13] MEDS ORDERED: Regadenoson 0.4 MG/5 ML SYRINGE IVP ONE (06:11)
[2020-05-13] MEDS: levoFLOXacin 750 MG/150 ML 750 MG/150 ML BAG IVPB SCH (09:05)
[2020-05-13] MEDS: Gabapentin 400 MG CAPSULE PO SCH ×3 (09:06→20:19)
[2020-05-13] MEDS: Aspirin Enteric Coated 81 MG Tablet PO SCH (09:06)
[2020-05-13] MEDS: Leflunomide [Arava] 20 MG PO SCH (09:06)
[2020-05-13] MEDS: Metoprolol XL (24 HR) Succ 50 MG TAB.ER.24H PO SCH (09:06)
[2020-05-13] MEDS: Magnesium Oxide 400 MG TABLET PO SCH (09:06)
[2020-05-13] MEDS: *HR* Heparin 5,000 UNIT/ML VIAL IVP PRN (09:31)
[2020-05-13] MEDS: Budesonide/Formoterol 80/4.5 1 PUFF INH IH SCH ×2 (11:20→22:25)
[2020-05-13] MEDS: Apixaban 5 MG TABLET PO SCH (16:45)
[2020-05-13] MEDS: Acetaminophen 325 MG TABLET PO PRN (20:19)
[2020-05-14] MEDS: Ipratropium/Albuterol Neb 3 ML IH SCH ×4 (03:42→22:40)
[2020-05-14 05:59] LABS: Hematocrit 33.7 % (37.5-50.1); Mean Corpuscular HGB Conc 29.7 g/dL (31.6-35.5); Mean Corpuscular Hemoglobin 25.8 pg (28.0-33.3); Mean Corpuscular Volume 86.9 fL (83.0-100.0); Mean Platelet Volume 10.2 fL (9.4-12.4); Platelet Count 202 K/mcL (140-400); Red Blood Count 3.88 M/mcL (4.19-5.50); Red Cell Distribution Width 22.6 % (11.5-14.5); White Blood Count 8.4 K/mcL (4.3-11.1)
[2020-05-14] MEDS: Apixaban 5 MG TABLET PO SCH ×2 (06:09→17:10)
[2020-05-14 06:15] LABS: Calcium 7.9 mg/dL (8.6-10.3); Potassium 3.4 mEq/L (3.5-5.1)
[2020-05-14] MEDS: Leflunomide [Arava] 20 MG PO SCH (08:56)
[2020-05-14] MEDS: Gabapentin 400 MG CAPSULE PO SCH ×3 (09:00→22:58)
[2020-05-14] MEDS: Magnesium Oxide 400 MG TABLET PO SCH (09:00)
[2020-05-14] MEDS: Aspirin Enteric Coated 81 MG Tablet PO SCH (09:00)
[2020-05-14] MEDS: Metoprolol XL (24 HR) Succ 50 MG TAB.ER.24H PO SCH (09:00)
[2020-05-14] MEDS: levoFLOXacin 750 MG/150 ML 750 MG/150 ML BAG IVPB SCH (09:00)
[2020-05-14] MEDS: Budesonide/Formoterol 80/4.5 1 PUFF INH IH SCH ×3 (10:47→22:45)
[2020-05-14] MEDS: Acetaminophen 325 MG TABLET PO PRN (22:58)
[2020-05-15] MEDS: Ipratropium/Albuterol Neb 3 ML IH SCH ×4 (03:14→22:08)
[2020-05-15] MEDS: Acetaminophen 325 MG TABLET PO PRN (06:16)
[2020-05-15] MEDS: Apixaban 5 MG TABLET PO SCH ×2 (06:16→17:09)
[2020-05-15 06:41] LABS: Hematocrit 31.3 % (37.5-50.1); Hemoglobin 9.4 g/dL (12.9-16.9); Mean Corpuscular Hemoglobin 25.9 pg (28.0-33.3); Mean Corpuscular Volume 86.2 fL (83.0-100.0); Mean Platelet Volume 10.2 fL (9.4-12.4); Platelet Count 176 K/mcL (140-400); Red Blood Count 3.63 M/mcL (4.19-5.50)
[2020-05-15 07:01] LABS: BUN/Creatinine Ratio 19 (6-26); Blood Urea Nitrogen 20 mg/dL (8-23); Carbon Dioxide 24 mEq/L (23-29); Chloride 107 mEq/L (98-107); Glucose 111 mg/dL (70-105); Osmolality,Calculated 285 (280-300); Sodium 136 mEq/L (136-145); eGFR For African Americans > 60 (> 60); eGFR For Non-African Americans > 60 (> 60)
[2020-05-15] MEDS: levoFLOXacin 750 MG TABLET PO SCH (09:30)
[2020-05-15] MEDS: Magnesium Oxide 400 MG TABLET PO SCH (09:30)
[2020-05-15] MEDS: Aspirin Enteric Coated 81 MG Tablet PO SCH (09:30)
[2020-05-15] MEDS: Gabapentin 400 MG CAPSULE PO SCH ×3 (09:31→21:20)
[2020-05-15] MEDS: Metoprolol XL (24 HR) Succ 50 MG TAB.ER.24H PO SCH (09:31)
[2020-05-15] MEDS: Leflunomide [Arava] 20 MG PO SCH (09:37)
[2020-05-15] MEDS: Budesonide/Formoterol 80/4.5 1 PUFF INH IH SCH ×2 (10:59→22:10)
[2020-05-16 02:32] LABS: Red Cell Distribution Width 22.8 % (11.5-14.5); White Blood Count 9.8 K/mcL (4.3-11.1)
[2020-05-16 02:33] LABS: Hematocrit 34.2 % (37.5-50.1); Mean Corpuscular HGB Conc 29.2 g/dL (31.6-35.5); Mean Corpuscular Hemoglobin 26.5 pg (28.0-33.3); Mean Corpuscular Volume 90.5 fL (83.0-100.0); Mean Platelet Volume 10.9 fL (9.4-12.4); Platelet Count 198 K/mcL (140-400); Red Blood Count 3.78 M/mcL (4.19-5.50)
[2020-05-16 02:34] LABS: BUN/Creatinine Ratio 22 (6-26); Blood Urea Nitrogen 25 mg/dL (8-23); Calcium 8.3 mg/dL (8.6-10.3); Carbon Dioxide 24 mEq/L (23-29); Chloride 106 mEq/L (98-107); Glucose 112 mg/dL (70-105); Osmolality,Calculated 293 (280-300); Potassium 4.1 mEq/L (3.5-5.1); Sodium 139 mEq/L (136-145); eGFR For African Americans > 60 (> 60); eGFR For Non-African Americans > 60 (> 60)
[2020-05-16] MEDS: Ipratropium/Albuterol Neb 3 ML IH SCH ×4 (03:30→21:34)
[2020-05-16] MEDS: Apixaban 5 MG TABLET PO SCH ×2 (05:50→17:17)
[2020-05-16] MEDS: Gabapentin 400 MG CAPSULE PO SCH ×3 (08:24→19:38)
[2020-05-16] MEDS: Metoprolol XL (24 HR) Succ 50 MG TAB.ER.24H PO SCH (08:25)
[2020-05-16] MEDS: Aspirin Enteric Coated 81 MG Tablet PO SCH (08:25)
[2020-05-16] MEDS: Leflunomide [Arava] 20 MG PO SCH (08:25)
[2020-05-16] MEDS: Magnesium Oxide 400 MG TABLET PO SCH (08:25)
[2020-05-16] MEDS: levoFLOXacin 750 MG TABLET PO SCH (08:25)
[2020-05-16] MEDS: Budesonide/Formoterol 80/4.5 1 PUFF INH IH SCH ×2 (10:52→21:36)
[2020-05-17] MEDS: Ipratropium/Albuterol Neb 3 ML IH SCH ×4 (03:14→21:44)
[2020-05-17] MEDS: Apixaban 5 MG TABLET PO SCH ×2 (05:58→16:16)
[2020-05-17] MEDS ORDERED: Metoprolol XL (24 HR) Succ 50 MG TAB.ER.24H PO SCH (09:00)
[2020-05-17] MEDS: Aspirin Enteric Coated 81 MG Tablet PO SCH (09:02)
[2020-05-17] MEDS: levoFLOXacin 750 MG TABLET PO SCH (09:02)
[2020-05-17] MEDS: Gabapentin 400 MG CAPSULE PO SCH ×3 (09:03→19:57)
[2020-05-17] MEDS: Magnesium Oxide 400 MG TABLET PO SCH (09:03)
[2020-05-17] MEDS: Leflunomide [Arava] 20 MG PO SCH (09:03)
[2020-05-17] MEDS: Budesonide/Formoterol 80/4.5 1 PUFF INH IH SCH ×2 (10:06→21:44)
[2020-05-17 10:57] LABS: Hematocrit 30.7 % (37.5-50.1); Hemoglobin 9.2 g/dL (12.9-16.9); Mean Corpuscular Volume 86.7 fL (83.0-100.0); Mean Platelet Volume 11.5 fL (9.4-12.4); Platelet Count 165 K/mcL (140-400); Red Blood Count 3.54 M/mcL (4.19-5.50); Red Cell Distribution Width 22.1 % (11.5-14.5); White Blood Count 8.3 K/mcL (4.3-11.1)
[2020-05-17 11:16] LABS: BUN/Creatinine Ratio 22 (6-26); Blood Urea Nitrogen 24 mg/dL (8-23); Carbon Dioxide 23 mEq/L (23-29); Chloride 109 mEq/L (98-107); Glucose 111 mg/dL (70-105); Osmolality,Calculated 291 (280-300); Sodium 138 mEq/L (136-145); eGFR For African Americans > 60 (> 60); eGFR For Non-African Americans > 60 (> 60)
[2020-05-17] MEDS: Isosorbide MONOnitrate (24 HR) 30 MG TAB.ER.24H PO SCH (16:16)
[2020-05-17] MEDS: Metoprolol XL (24 HR) Succ 50 MG TAB.ER.24H PO SCH (19:57)
[2020-05-18] MEDS ORDERED: Isovue-370 500 ML BOTTLE IVP ONE (00:14)
[2020-05-18 02:23] LABS: Hematocrit 34.1 % (37.5-50.1); Hemoglobin 9.9 g/dL (12.9-16.9); Mean Corpuscular Hemoglobin 25.3 pg (28.0-33.3); Mean Corpuscular Volume 87.2 fL (83.0-100.0); Mean Platelet Volume 10.6 fL (9.4-12.4); Platelet Count 171 K/mcL (140-400); Red Blood Count 3.91 M/mcL (4.19-5.50); Red Cell Distribution Width 22.3 % (11.5-14.5)
[2020-05-18 02:42] LABS: BUN/Creatinine Ratio 23 (6-26); Blood Urea Nitrogen 24 mg/dL (8-23); Calcium 8.6 mg/dL (8.6-10.3); Carbon Dioxide 21 mEq/L (23-29); Chloride 106 mEq/L (98-107); Glucose 109 mg/dL (70-105); Magnesium 1.5 mg/dL (1.6-2.6); Osmolality,Calculated 287 (280-300); Phosphorous 2.5 mg/dL (2.7-4.5); Potassium 4.2 mEq/L (3.5-5.1); Sodium 136 mEq/L (136-145); eGFR For African Americans > 60 (> 60); eGFR For Non-African Americans > 60 (> 60)
[2020-05-18] MEDS: Ipratropium/Albuterol Neb 3 ML IH SCH ×2 (03:12→09:35)
[2020-05-18] MEDS: Apixaban 5 MG TABLET PO SCH (05:57)
[2020-05-18] MEDS: Acetaminophen 325 MG TABLET PO PRN (05:59)
[2020-05-18] MEDS: Leflunomide [Arava] 20 MG PO SCH (08:37)
[2020-05-18] MEDS: Magnesium Oxide 400 MG TABLET PO SCH (08:44)
[2020-05-18] MEDS: Gabapentin 400 MG CAPSULE PO SCH (08:44)
[2020-05-18] MEDS: Metoprolol XL (24 HR) Succ 50 MG TAB.ER.24H PO SCH (08:44)
[2020-05-18] MEDS: levoFLOXacin 750 MG TABLET PO SCH (08:44)
[2020-05-18] MEDS: Isosorbide MONOnitrate (24 HR) 30 MG TAB.ER.24H PO SCH (08:44)
[2020-05-18] MEDS: Aspirin Enteric Coated 81 MG Tablet PO SCH (08:44)
[2020-05-18] MEDS: Budesonide/Formoterol 80/4.5 1 PUFF INH IH SCH (09:36)
[2020-05-18 10:55] VITALS: BP 106/72
[2020-05-18] MEDS ORDERED: Magnesium Oxide 400 MG TABLET PO STA (11:08)
== END 2020-05-18 13:33 | disposition home health service (06) | DRG 280 ==
LOC: 2ANU 18:32 → EMEROOARM 18:32 → SUATTDRO 05-12 02:30 → 2ANU 05-12 03:23
PROVIDERS: ADMIT Student in an Organized Health Care Education/Training Program; ATTEND Internal Medicine

== ENCOUNTER 2020-06-14 11:08 | Inpatient (IN) ==
[2020-06-14] MEDS ORDERED: 0.9 % Sodium Chloride 1,000 ML IVC SCH (11:30)
[2020-06-14] MEDS ORDERED: *HR* Midazolam HCl 5 MG/5 ML VIAL IVP ONE (12:10)
[2020-06-14] MEDS ORDERED: *HR* FentaNYL (PF) 100 MCG/2 ML VIAL ONE (12:10)
[2020-06-14] MEDS ORDERED: Clindamycin 600 MG/50 ML 600 MG/50 ML IV.SOLN IVPB ONE (13:22)
[2020-06-14] MEDS ORDERED: Water for inj. (sterile) 0 ML ONE (13:23)
[2020-06-14] MEDS ORDERED: Amiodarone Premix 150 MG/100 ML BAG IVPB ONE (15:18)
[2020-06-14] MEDS ORDERED: Amiodarone Premix 360 MG/200 ML BAG IVC ONE (15:40)
[2020-06-14 16:11] LABS: Hematocrit 32.9 % (37.5-50.1); Mean Corpuscular HGB Conc 30.4 g/dL (31.6-35.5); Mean Corpuscular Hemoglobin 26.7 pg (28.0-33.3); Mean Corpuscular Volume 87.7 fL (83.0-100.0); Mean Platelet Volume 12.3 fL (9.4-12.4); Platelet Count 265 K/mcL (140-400); Red Blood Count 3.75 M/mcL (4.19-5.50); Red Cell Distribution Width 22.1 % (11.5-14.5); White Blood Count 5.3 K/mcL (4.3-11.1)
[2020-06-14] MEDS ORDERED: Ondansetron 4 MG/2 ML VIAL ONE (16:12)
[2020-06-14] MEDS ORDERED: Ondansetron 4 MG/2 ML VIAL IVP PRN (16:14)
[2020-06-14 16:32] LABS: Alanine Aminotransferase 36 Units/L (7-52); Albumin 3.8 g/dL (3.5-5.7); Albumin/Globulin Ratio 1.6 (1.1-2.2); Alkaline Phosphatase 242 Units/L (34-104); Aspartate Amino Transferase 66 Units/L (13-39); BUN/Creatinine Ratio 23 (6-26); Bilirubin,Total 0.6 mg/dL (0.3-1.0); Blood Urea Nitrogen 24 mg/dL (8-23); Calcium 8.9 mg/dL (8.6-10.3); Carbon Dioxide 22 mEq/L (23-29); Chloride 97 mEq/L (98-107); Globulin 2.4 g/dL (2.4-3.5); Glucose 100 mg/dL (70-105); Osmolality,Calculated 278 (280-300); Potassium 4.3 mEq/L (3.5-5.1); Sodium 132 mEq/L (136-145); Total Protein 6.2 g/dL (6.4-8.9); eGFR For African Americans > 60 (> 60); eGFR For Non-African Americans > 60 (> 60)
[2020-06-14] MEDS ORDERED: Naloxone 0.4 MG/ML INJ IVP PRN (17:54)
[2020-06-14] MEDS ORDERED: *HR* Promethazine 25 MG/ML VIAL IVP ONE (20:54)
[2020-06-14] MEDS: Budesonide/Formoterol 80/4.5 1 PUFF INH IH SCH (21:06)
[2020-06-14] MEDS: Metoprolol XL (24 HR) Succ 50 MG TAB.ER.24H PO SCH (21:09)
[2020-06-14] MEDS: Gabapentin 400 MG CAPSULE PO SCH (21:09)
[2020-06-14] MEDS: Apixaban 5 MG TABLET PO SCH (21:10)
[2020-06-14] MEDS: Amiodarone Premix 360 MG/200 ML BAG IVC SCH (23:20)
[2020-06-15] MEDS ORDERED: Ondansetron 4 MG/2 ML VIAL IVP PRN
[2020-06-15] MEDS ORDERED: 0.9 % Sodium Chloride 250 ML ONE (02:33)
[2020-06-15 05:48] LABS: Basophils % 0.2 %; Hematocrit 34.3 % (37.5-50.1); Hemoglobin 10.5 g/dL (12.9-16.9); Immature Granulocytes % 0.8 % (0-4); Lymphocytes # 0.8 K/mcL (0.6-4.6); Lymphocytes % 7.2 %; Mean Corpuscular HGB Conc 30.6 g/dL (31.6-35.5); Mean Corpuscular Hemoglobin 26.7 pg (28.0-33.3); Mean Corpuscular Volume 87.3 fL (83.0-100.0); Mean Platelet Volume 12.1 fL (9.4-12.4); Monocytes % 12.7 %; Neutrophils # 8.4 K/mcL (1.6-8.9); Platelet Count 314 K/mcL (140-400); Red Blood Count 3.93 M/mcL (4.19-5.50); Red Cell Distribution Width 21.9 % (11.5-14.5); Segmented Neutrophils % 79.1 %
[2020-06-15 05:56] LABS: Monocytes # 1.4 K/mcL (0.0-1.3); White Blood Count 10.6 K/mcL (4.3-11.1)
[2020-06-15 06:11] LABS: Calcium 8.8 mg/dL (8.6-10.3); Phosphorous 4.5 mg/dL (2.7-4.5)
[2020-06-15] MEDS ORDERED: Furosemide 20 MG TABLET PO SCH (09:00)
[2020-06-15] MEDS: Gabapentin 400 MG CAPSULE PO SCH ×3 (09:01→21:53)
[2020-06-15] MEDS: Aspirin Enteric Coated 81 MG Tablet PO SCH (09:01)
[2020-06-15] MEDS: Apixaban 5 MG TABLET PO SCH ×2 (09:01→20:46)
[2020-06-15] MEDS: *HR* Metoprolol 5 MG/5 ML VIAL IVP PRN (09:02)
[2020-06-15] MEDS: Magnesium Oxide 400 MG TABLET PO SCH (09:16)
[2020-06-15] MEDS: Budesonide/Formoterol 80/4.5 1 PUFF INH IH SCH ×2 (10:30→19:44)
[2020-06-15] MEDS: Amiodarone Premix 360 MG/200 ML BAG IVC SCH (12:00)
[2020-06-15] MEDS: 0.9 % Sodium Chloride 1,000 ML IVC SCH (16:44)
[2020-06-15] MEDS: Metoprolol XL (24 HR) Succ 50 MG TAB.ER.24H PO SCH (20:46)
[2020-06-16] MEDS: 0.9 % Sodium Chloride 1,000 ML IVC SCH (04:22)
[2020-06-16 04:43] LABS: Basophils # 0.1 K/mcL (0.0-0.2); Basophils % 0.7 %; Eosinophils % 0.1 %; Hematocrit 29.8 % (37.5-50.1); Immature Granulocytes % 1.4 % (0-4); Lymphocytes # 1.1 K/mcL (0.6-4.6); Lymphocytes % 15.2 %; Mean Corpuscular HGB Conc 29.9 g/dL (31.6-35.5); Mean Corpuscular Hemoglobin 25.5 pg (28.0-33.3); Mean Corpuscular Volume 85.4 fL (83.0-100.0); Mean Platelet Volume 11.3 fL (9.4-12.4); Monocytes # 1.2 K/mcL (0.0-1.3); Monocytes % 16.6 %; Neutrophils # 4.9 K/mcL (1.6-8.9); Nucleated Red Blood Cells 1.2 /100 WBC (0); Platelet Count 249 K/mcL (140-400); Red Blood Count 3.49 M/mcL (4.19-5.50); Red Cell Distribution Width 21.4 % (11.5-14.5); White Blood Count 7.4 K/mcL (4.3-11.1)
[2020-06-16 04:46] LABS: Hemoglobin 8.9 g/dL (12.9-16.9)
[2020-06-16 05:02] LABS: Calcium 7.6 mg/dL (8.6-10.3); Magnesium 1.9 mg/dL (1.6-2.6); Phosphorous 4.2 mg/dL (2.7-4.5); Potassium 4.3 mEq/L (3.5-5.1)
[2020-06-16] MEDS: Budesonide/Formoterol 80/4.5 1 PUFF INH IH SCH ×2 (07:26→20:06)
[2020-06-16] MEDS ORDERED: levoFLOXacin 750 MG/150 ML 750 MG/150 ML BAG IVPB ONE (09:11)
[2020-06-16] MEDS: *HR* Metoprolol 5 MG/5 ML VIAL IVP PRN (09:12)
[2020-06-16] MEDS: Apixaban 5 MG TABLET PO SCH ×2 (09:13→19:36)
[2020-06-16] MEDS: Gabapentin 400 MG CAPSULE PO SCH ×3 (09:13→19:36)
[2020-06-16] MEDS: Magnesium Oxide 400 MG TABLET PO SCH (09:13)
[2020-06-16] MEDS: Aspirin Enteric Coated 81 MG Tablet PO SCH (09:13)
[2020-06-16 11:38] LABS: Amphetamine Screen,Urine Negative ng/mL (Cutoff=1000); Barbiturate Screen,Urine Negative ng/mL (Cutoff=200); Benzodiazepines Screen,Urine Negative ng/mL (Cutoff=200); Cannabinoid Screen,Urine Negative ng/mL (Cutoff = 50); Cocaine Screen,Urine Negative ng/mL (Cutoff= 300); Opiate Screen,Urine Negative ng/mL (Cutoff=300); Phencyclidine Screen,Urine Negative ng/mL (Cutoff=25)
[2020-06-16 12:14] LABS: Adenovirus Not Detected (Not Detect); Coronavirus 229E Not Detected (Not Detect); Coronavirus HKU1 Not Detected (Not Detect); Coronavirus NL63 Not Detected (Not Detect); Coronavirus OC43 Not Detected (Not Detect)
[2020-06-16 12:15] LABS: Bordetella Pertussis Not Detected (Not Detect); Chlamydophila pneumoniae Not Detected (Not Detect); Human Metapneumovirus Not Detected (Not Detect); Human Rhinovirus/Enterovirus Not Detected (Not Detect); Influenza A Subtype 2009 H1 Not Detected (Not Detect); Influenza B Not Detected (Not Detect); Mycoplasma pneumoniae Not Detected (Not Detect); Parainfluenza Virus 1 Not Detected (Not Detect); Parainfluenza Virus 2 Not Detected (Not Detect); Parainfluenza Virus 3 Not Detected (Not Detect); Parainfluenza Virus 4 Not Detected (Not Detect); Respiratory Syncytial Virus Not Detected (Not Detect)
[2020-06-16] MEDS: Amiodarone Premix 360 MG/200 ML BAG IVC SCH ×2 (13:01)
[2020-06-16] MEDS: *HR* Amiodarone 200 MG TABLET PO SCH ×2 (13:59→19:36)
[2020-06-16] MEDS ORDERED: 0.9 % Sodium Chloride 1,000 ML IVC SCH (15:30)
[2020-06-16] MEDS ORDERED: Doxycycline 100 MG in 0.9 % Sodium Chloride Mini Bag 100 ML IVPB SCH (18:00)
[2020-06-16 18:04] LABS: Uric Acid 10.3 mg/dL (2.3-7.6)
[2020-06-16] MEDS: Metoprolol XL (24 HR) Succ 50 MG TAB.ER.24H PO SCH (19:46)
[2020-06-17] MEDS: Amiodarone Premix 360 MG/200 ML BAG IVC SCH (01:00)
[2020-06-17 03:28] LABS: Bacteria,Urine Few per hpf (None-Few); Bilirubin,Urine Negative (Negative); Blood,Urine Moderate (Negative); Clarity,Urine Clear (Clear); Color,Urine Yellow (Yellow); Glucose,Urine (UA) Normal (Normal); Hyaline Casts,Urine Moderate per lpf (None Seen); Ketones,Urine Negative (Negative); Leukocyte Esterase,Urine Small (Negative); Mucus,Urine Few per lpf (None-Few); Nitrite,Urine Negative (Negative); Protein,Urine 30 mg/dL (Neg-Trace); RBC,Urine 30-50 per hpf (0-3); Specific Gravity,Urine 1.023 (1.010-1.025)
[2020-06-17 03:36] LABS: Sodium, Urine 10.2 mEq/L
[2020-06-17 05:56] LABS: Basophils # 0.1 K/mcL (0.0-0.2); Basophils % 0.8 %; Eosinophils % 0.4 %; Hematocrit 32.9 % (37.5-50.1); Immature Granulocytes % 2.4 % (0-4); Lymphocytes # 1.2 K/mcL (0.6-4.6); Lymphocytes % 13.2 %; Mean Corpuscular HGB Conc 30.4 g/dL (31.6-35.5); Mean Corpuscular Hemoglobin 26.1 pg (28.0-33.3); Mean Corpuscular Volume 85.9 fL (83.0-100.0); Mean Platelet Volume 11.7 fL (9.4-12.4); Monocytes # 1.3 K/mcL (0.0-1.3); Monocytes % 14.4 %; Neutrophils # 6.2 K/mcL (1.6-8.9); Nucleated Red Blood Cells 0.8 /100 WBC (0); Platelet Count 204 K/mcL (140-400); Red Blood Count 3.83 M/mcL (4.19-5.50); Red Cell Distribution Width 21.4 % (11.5-14.5); Segmented Neutrophils % 68.8 %
[2020-06-17 06:14] LABS: Calcium 8.2 mg/dL (8.6-10.3); Magnesium 2.3 mg/dL (1.6-2.6); Phosphorous 2.5 mg/dL (2.7-4.5); Potassium 3.9 mEq/L (3.5-5.1)
[2020-06-17] MEDS: Budesonide/Formoterol 80/4.5 1 PUFF INH IH SCH ×2 (07:28→19:59)
[2020-06-17] MEDS: *HR* Amiodarone 200 MG TABLET PO SCH ×2 (08:31→19:37)
[2020-06-17] MEDS: Aspirin Enteric Coated 81 MG Tablet PO SCH (08:31)
[2020-06-17] MEDS: Apixaban 5 MG TABLET PO SCH ×2 (08:31→19:37)
[2020-06-17] MEDS: Gabapentin 400 MG CAPSULE PO SCH ×3 (08:32→19:37)
[2020-06-17] MEDS: Magnesium Oxide 400 MG TABLET PO SCH (08:32)
[2020-06-17] MEDS: Acetaminophen 325 MG TABLET PO PRN (08:55)
[2020-06-17] MEDS ORDERED: levoFLOXacin 500 MG/100 ML 500 MG/100 ML BAG IVPB SCH (09:00)
[2020-06-17] MEDS: Metoprolol XL (24 HR) Succ 50 MG TAB.ER.24H PO SCH (19:37)
[2020-06-18 05:33] LABS: Basophils % 0.3 %; Eosinophils # 0.1 K/mcL (0.0-0.6); Eosinophils % 0.7 %; Hematocrit 29.3 % (37.5-50.1); Hemoglobin 9.3 g/dL (12.9-16.9); Immature Granulocytes % 1.3 % (0-4); Lymphocytes # 0.6 K/mcL (0.6-4.6); Lymphocytes % 6.5 %; Mean Corpuscular HGB Conc 31.7 g/dL (31.6-35.5); Mean Corpuscular Hemoglobin 26.7 pg (28.0-33.3); Mean Corpuscular Volume 84.2 fL (83.0-100.0); Mean Platelet Volume 12.2 fL (9.4-12.4); Neutrophils # 7.2 K/mcL (1.6-8.9); Nucleated Red Blood Cells 1.4 /100 WBC (0); Platelet Count 175 K/mcL (140-400); Red Blood Count 3.48 M/mcL (4.19-5.50); Red Cell Distribution Width 21.2 % (11.5-14.5); Segmented Neutrophils % 80.2 %
[2020-06-18 05:51] LABS: BUN/Creatinine Ratio 31 (6-26); Blood Urea Nitrogen 43 mg/dL (8-23); Calcium 7.7 mg/dL (8.6-10.3); Carbon Dioxide 20 mEq/L (23-29); Chloride 99 mEq/L (98-107); Glucose 129 mg/dL (70-105); Osmolality,Calculated 285 (280-300); Phosphorous 2.1 mg/dL (2.7-4.5); Potassium 3.8 mEq/L (3.5-5.1); Sodium 131 mEq/L (136-145); eGFR For African Americans > 60 (> 60); eGFR For Non-African Americans 52 (> 60)
[2020-06-18] MEDS ORDERED: Potassium Phosphate 44 MEQ in 0.9 % Sodium Chloride 250 ML IVPB ONE (07:16)
[2020-06-18] MEDS: Budesonide/Formoterol 80/4.5 1 PUFF INH IH SCH (07:30)
[2020-06-18] MEDS: Apixaban 5 MG TABLET PO SCH (08:42)
[2020-06-18] MEDS: Gabapentin 400 MG CAPSULE PO SCH (08:42)
[2020-06-18] MEDS: Aspirin Enteric Coated 81 MG Tablet PO SCH (08:42)
[2020-06-18] MEDS: *HR* Amiodarone 200 MG TABLET PO SCH (08:42)
[2020-06-18] MEDS: Magnesium Oxide 400 MG TABLET PO SCH (08:43)
[2020-06-18 11:13] VITALS: BP 114/91
[2020-06-18] MEDS: Acetaminophen 325 MG TABLET PO PRN (11:14)
[2020-06-18] MEDS ORDERED: levoFLOXacin 750 MG/150 ML 750 MG/150 ML BAG IVPB SCH (12:00)
[2020-06-18] MEDS ORDERED: levoFLOXacin 750 MG TABLET PO SCH (13:00)
== END 2020-06-18 14:55 | disposition home or self-care (01) | DRG 308 ==
LOC: INVDIALAB 11:08 → ICNU 11:08 → SUATTDRO 06-15 09:25
PROVIDERS: ADMIT Internal Medicine Clinical Cardiac Electrophysiology; ATTEND Internal Medicine

== ENCOUNTER 2020-07-06 20:25 | Inpatient (IN) ==
[2020-07-06 21:51] LABS: Basophils % 0.6 %; Eosinophils # 0.1 K/mcL (0.0-0.6); Eosinophils % 1.9 %; Hematocrit 31.4 % (37.5-50.1); Hemoglobin 9.9 g/dL (12.9-16.9); Immature Granulocytes % 0.9 % (0-4); Lymphocytes # 0.8 K/mcL (0.6-4.6); Lymphocytes % 12.2 %; Mean Corpuscular HGB Conc 31.5 g/dL (31.6-35.5); Mean Corpuscular Hemoglobin 26.3 pg (28.0-33.3); Mean Corpuscular Volume 83.3 fL (83.0-100.0); Mean Platelet Volume 9.5 fL (9.4-12.4); Monocytes # 0.7 K/mcL (0.0-1.3); Monocytes % 10.8 %; Neutrophils # 4.8 K/mcL (1.6-8.9); Platelet Count 382 K/mcL (140-400); Red Blood Count 3.77 M/mcL (4.19-5.50); Red Cell Distribution Width 20.4 % (11.5-14.5); Segmented Neutrophils % 73.6 %; White Blood Count 6.5 K/mcL (4.3-11.1)
[2020-07-06 21:55] LABS: INR 1.5; Prothrombin Time 17.1 Seconds (9.4-12.1)
[2020-07-06 21:57] LABS: Activated Partial Thrombo Time 36.8 Seconds (26.0-36.0)
[2020-07-06 22:16] LABS: Alanine Aminotransferase 22 Units/L (7-52); Albumin 3.4 g/dL (3.5-5.7); Albumin/Globulin Ratio 1.3 (1.1-2.2); Alkaline Phosphatase 304 Units/L (34-104); Aspartate Amino Transferase 29 Units/L (13-39); BUN/Creatinine Ratio 20 (6-26); Bilirubin,Total 0.5 mg/dL (0.3-1.0); Blood Urea Nitrogen 28 mg/dL (8-23); Calcium 8.4 mg/dL (8.6-10.3); Carbon Dioxide 27 mEq/L (23-29); Chloride 97 mEq/L (98-107); Globulin 2.7 g/dL (2.4-3.5); Glucose 103 mg/dL (70-105); Osmolality,Calculated 284 (280-300); Potassium 3.2 mEq/L (3.5-5.1); Sodium 134 mEq/L (136-145); Total Protein 6.1 g/dL (6.4-8.9); Troponin I 0.04 ng/mL (< 0.04); eGFR For African Americans > 60 (> 60); eGFR For Non-African Americans 50 (> 60)
[2020-07-06] MEDS ORDERED: Aspirin 325 MG TABLET PO ONE (22:33)
[2020-07-06] MEDS ORDERED: *HR* OxyCODONE/APAP 5/325 TABLET PO ONE (22:40)
[2020-07-06] MEDS ORDERED: Clindamycin 600 MG/50 ML 600 MG/50 ML IV.SOLN IVPB STA (23:53)
[2020-07-07] MEDS ORDERED: *HR* Promethazine 25 MG/ML VIAL IVP PRN (01:16)
[2020-07-07] MEDS ORDERED: Naloxone 0.4 MG/ML INJ IVP PRN (01:16)
[2020-07-07] MEDS ORDERED: 0.9 % Sodium Chloride 1,000 ML IVC SCH (01:30)
[2020-07-07] MEDS: Morphine Sulfate 2 MG/ML SYRINGE IVP PRN ×5 (01:33→22:44)
[2020-07-07 05:32] LABS: Basophils # 0.1 K/mcL (0.0-0.2); Basophils % 0.8 %; Eosinophils # 0.2 K/mcL (0.0-0.6); Eosinophils % 2.8 %; Hematocrit 27.4 % (37.5-50.1); Hemoglobin 8.6 g/dL (12.9-16.9); Immature Granulocytes % 1.5 % (0-4); Lymphocytes % 16.9 %; Mean Corpuscular HGB Conc 31.4 g/dL (31.6-35.5); Mean Corpuscular Hemoglobin 25.7 pg (28.0-33.3); Mean Platelet Volume 9.3 fL (9.4-12.4); Monocytes # 0.8 K/mcL (0.0-1.3); Monocytes % 13.6 %; Platelet Count 307 K/mcL (140-400); Red Blood Count 3.34 M/mcL (4.19-5.50); Red Cell Distribution Width 20.6 % (11.5-14.5); Segmented Neutrophils % 64.4 %; White Blood Count 6.2 K/mcL (4.3-11.1)
[2020-07-07 05:34] LABS: INR 1.7; Prothrombin Time 19.1 Seconds (9.4-12.1)
[2020-07-07 05:53] LABS: Alanine Aminotransferase 16 Units/L (7-52); Albumin 2.8 g/dL (3.5-5.7); Albumin/Globulin Ratio 1.2 (1.1-2.2); Alkaline Phosphatase 249 Units/L (34-104); Aspartate Amino Transferase 22 Units/L (13-39); BUN/Creatinine Ratio 19 (6-26); Bilirubin,Total 0.4 mg/dL (0.3-1.0); Blood Urea Nitrogen 25 mg/dL (8-23); Carbon Dioxide 26 mEq/L (23-29); Chloride 102 mEq/L (98-107); Globulin 2.3 g/dL (2.4-3.5); Glucose 76 mg/dL (70-105); Magnesium 1.9 mg/dL (1.6-2.6); Osmolality,Calculated 287 (280-300); Phosphorous 3.4 mg/dL (2.7-4.5); Potassium 3.2 mEq/L (3.5-5.1); Sodium 137 mEq/L (136-145); Total Protein 5.1 g/dL (6.4-8.9); eGFR For African Americans > 60 (> 60); eGFR For Non-African Americans 54 (> 60)
[2020-07-07 07:59] LABS: Adenovirus Not Detected (Not Detect); Bordetella Pertussis Not Detected (Not Detect); Chlamydophila pneumoniae Not Detected (Not Detect); Coronavirus 229E Not Detected (Not Detect); Coronavirus HKU1 Not Detected (Not Detect); Coronavirus NL63 Not Detected (Not Detect); Coronavirus OC43 Not Detected (Not Detect); Human Metapneumovirus Not Detected (Not Detect); Human Rhinovirus/Enterovirus Not Detected (Not Detect); Influenza A Subtype 2009 H1 Not Detected (Not Detect); Influenza B Not Detected (Not Detect); Mycoplasma pneumoniae Not Detected (Not Detect); Parainfluenza Virus 1 Not Detected (Not Detect); Parainfluenza Virus 2 Not Detected (Not Detect); Parainfluenza Virus 3 Not Detected (Not Detect); Parainfluenza Virus 4 Not Detected (Not Detect); Respiratory Syncytial Virus Not Detected (Not Detect); SARS-CoV-2 Not Detected (Not Detect)
[2020-07-07] MEDS ORDERED: Gabapentin 300 MG CAPSULE PO SCH (09:00)
[2020-07-07] MEDS ORDERED: NON-FORMULARY MEDICATION 1 EACH EACH (Metoprolol Succinate [Toprol Xl] 100 MG) PO SCH (09:00)
[2020-07-07] MEDS ORDERED: Metoprolol XL (24 HR) Succ 25 MG TAB.ER.24H PO SCH (09:00)
[2020-07-07] MEDS ORDERED: Isosorbide MONOnitrate (24 HR) 30 MG TAB.ER.24H PO SCH (09:00)
[2020-07-07] MEDS ORDERED: DilTIAZem CD (24hr) 120 MG CAP.ER.24H PO SCH (09:00)
[2020-07-07] MEDS: Clindamycin 600 MG/50 ML 600 MG/50 ML IV.SOLN IVPB SCH ×3 (09:47→23:27)
[2020-07-07] MEDS: Nicotine 14 MG PATCH.TD24 TD SCH (09:55)
[2020-07-07] MEDS: Aspirin Enteric Coated 81 MG Tablet PO SCH (09:56)
[2020-07-07] MEDS: Budesonide/Formoterol 80/4.5 1 PUFF INH IH SCH ×2 (11:09→20:35)
[2020-07-07] MEDS ORDERED: Gadolinium Contrast Agent (WT Based) IV PRN (12:29)
[2020-07-07] MEDS ORDERED: *HR* Amiodarone 200 MG TABLET PO SCH (13:00)
[2020-07-07] MEDS: Apixaban 5 MG TABLET PO SCH ×2 (13:42→20:57)
[2020-07-07] MEDS: Melatonin 3 MG TABLET PO SCH (20:56)
[2020-07-07] MEDS: Gabapentin 300 MG CAPSULE PO SCH (20:57)
[2020-07-08] MEDS: Morphine Sulfate 2 MG/ML SYRINGE IVP PRN ×2 (04:11→09:05)
[2020-07-08 06:18] LABS: Basophils # 0.1 K/mcL (0.0-0.2); Eosinophils # 0.1 K/mcL (0.0-0.6); Eosinophils % 2.1 %; Hematocrit 30.2 % (37.5-50.1); Hemoglobin 9.2 g/dL (12.9-16.9); Immature Granulocytes % 0.9 % (0-4); Lymphocytes # 0.9 K/mcL (0.6-4.6); Lymphocytes % 15.1 %; Mean Corpuscular HGB Conc 30.5 g/dL (31.6-35.5); Mean Corpuscular Hemoglobin 26.2 pg (28.0-33.3); Mean Platelet Volume 9.5 fL (9.4-12.4); Monocytes # 0.9 K/mcL (0.0-1.3); Monocytes % 15.1 %; Neutrophils # 3.8 K/mcL (1.6-8.9); Platelet Count 311 K/mcL (140-400); Red Blood Count 3.51 M/mcL (4.19-5.50); Red Cell Distribution Width 20.8 % (11.5-14.5); Segmented Neutrophils % 65.8 %; White Blood Count 5.8 K/mcL (4.3-11.1)
[2020-07-08 06:39] LABS: BUN/Creatinine Ratio 22 (6-26); Blood Urea Nitrogen 27 mg/dL (8-23); Calcium 8.3 mg/dL (8.6-10.3); Carbon Dioxide 23 mEq/L (23-29); Chloride 104 mEq/L (98-107); Glucose 100 mg/dL (70-105); Osmolality,Calculated 287 (280-300); Potassium 4.2 mEq/L (3.5-5.1); Sodium 136 mEq/L (136-145); eGFR For African Americans > 60 (> 60); eGFR For Non-African Americans 60 (> 60)
[2020-07-08] MEDS: Budesonide/Formoterol 80/4.5 1 PUFF INH IH SCH ×2 (07:44→21:45)
[2020-07-08] MEDS: *HR* Amiodarone 200 MG TABLET PO SCH (07:51)
[2020-07-08] MEDS: Clindamycin 600 MG/50 ML 600 MG/50 ML IV.SOLN IVPB SCH ×3 (07:51→23:30)
[2020-07-08] MEDS: Gabapentin 300 MG CAPSULE PO SCH ×3 (07:51→22:03)
[2020-07-08] MEDS: Metoprolol XL (24 HR) Succ 50 MG TAB.ER.24H PO SCH (07:51)
[2020-07-08] MEDS: Apixaban 5 MG TABLET PO SCH ×2 (07:52→22:03)
[2020-07-08] MEDS: Aspirin Enteric Coated 81 MG Tablet PO SCH (07:52)
[2020-07-08] MEDS: Nicotine 14 MG PATCH.TD24 TD SCH (07:52)
[2020-07-08] MEDS ORDERED: *HR* Amiodarone 200 MG TABLET PO SCH (09:00)
[2020-07-08] MEDS: Magnesium Oxide 400 MG TABLET PO SCH (12:55)
[2020-07-08] MEDS: Furosemide 20 MG TABLET PO SCH (12:55)
[2020-07-08] MEDS: *HR* OxyCODONE Immed Rel 5 MG TABLET PO PRN ×2 (17:31→23:28)
[2020-07-08] MEDS: Melatonin 3 MG TABLET PO SCH (22:03)
[2020-07-09] MEDS: *HR* OxyCODONE Immed Rel 5 MG TABLET PO PRN ×2 (05:10→10:48)
[2020-07-09 05:58] LABS: Basophils # 0.1 K/mcL (0.0-0.2); Basophils % 0.8 %; Eosinophils # 0.1 K/mcL (0.0-0.6); Eosinophils % 1.5 %; Hematocrit 29.3 % (37.5-50.1); Hemoglobin 8.8 g/dL (12.9-16.9); Immature Granulocytes % 1.1 % (0-4); Lymphocytes # 0.8 K/mcL (0.6-4.6); Lymphocytes % 11.1 %; Mean Corpuscular Hemoglobin 25.3 pg (28.0-33.3); Mean Corpuscular Volume 84.2 fL (83.0-100.0); Mean Platelet Volume 9.7 fL (9.4-12.4); Monocytes # 1.1 K/mcL (0.0-1.3); Monocytes % 14.3 %; Neutrophils # 5.4 K/mcL (1.6-8.9); Platelet Count 311 K/mcL (140-400); Red Blood Count 3.48 M/mcL (4.19-5.50); Red Cell Distribution Width 20.7 % (11.5-14.5); Segmented Neutrophils % 71.2 %; White Blood Count 7.5 K/mcL (4.3-11.1)
[2020-07-09 06:18] LABS: BUN/Creatinine Ratio 20 (6-26); Blood Urea Nitrogen 25 mg/dL (8-23); Calcium 8.3 mg/dL (8.6-10.3); Carbon Dioxide 24 mEq/L (23-29); Chloride 100 mEq/L (98-107); Glucose 103 mg/dL (70-105); Osmolality,Calculated 281 (280-300); Potassium 4.2 mEq/L (3.5-5.1); Sodium 133 mEq/L (136-145); eGFR For African Americans > 60 (> 60); eGFR For Non-African Americans 59 (> 60)
[2020-07-09 06:28] VITALS: BP 123/81
[2020-07-09] MEDS: Budesonide/Formoterol 80/4.5 1 PUFF INH IH SCH (07:49)
[2020-07-09] MEDS: Furosemide 20 MG TABLET PO SCH (08:44)
[2020-07-09] MEDS: Gabapentin 300 MG CAPSULE PO SCH (08:44)
[2020-07-09] MEDS: Metoprolol XL (24 HR) Succ 50 MG TAB.ER.24H PO SCH (08:44)
[2020-07-09] MEDS: Aspirin Enteric Coated 81 MG Tablet PO SCH (08:44)
[2020-07-09] MEDS: *HR* Amiodarone 200 MG TABLET PO SCH (08:44)
[2020-07-09] MEDS: Magnesium Oxide 400 MG TABLET PO SCH (08:44)
[2020-07-09] MEDS: Apixaban 5 MG TABLET PO SCH (08:44)
[2020-07-09] MEDS: Nicotine 14 MG PATCH.TD24 TD SCH (08:45)
[2020-07-09] MEDS ORDERED: FLU Vac QV 20-21 (6Month+)/PF 0.5 ML SYRINGE IM ONE (08:54)
[2020-07-09] MEDS: Clindamycin 600 MG/50 ML 600 MG/50 ML IV.SOLN IVPB SCH (10:45)
== END 2020-07-09 11:05 | disposition home or self-care (01) | DRG 300 ==
LOC: EMEROOARM 20:25 → 3NENU 20:25 → SUATTDRO 07-07 00:01 → 3NENU 07-07 00:57
PROVIDERS: ADMIT Internal Medicine; ATTEND Family Medicine

== ENCOUNTER 2020-09-07 14:04 | Inpatient (IN) ==
[2020-09-07 14:20] LABS: ABG Base Excess 1 mEq/L (-2 to 3); ABG HCO3 26 mEq/L (21-27); ABG Oxygen Saturation 99 % (95-98); ABG PCO2 41 mmHg (35-45); ABG PH 7.41 pH Units (7.32-7.45); ABG PO2 127 mmHg (85-104); ABG TCO2 27 mEq/L (20-26); Blood Gas Pressure Support 7 cm H2O
[2020-09-07 14:36] LABS: Immature Granulocytes % 0.4 % (0-4); Mean Platelet Volume 10.5 fL (9.4-12.4)
[2020-09-07 14:41] LABS: Basophils # 0.1 K/mcL (0.0-0.2); Basophils % 1.1 %; Eosinophils % 0.3 %; Hematocrit 36.2 % (37.5-50.1); Hemoglobin 10.4 g/dL (12.9-16.9); Lymphocytes # 0.9 K/mcL (0.6-4.6); Lymphocytes % 9.6 %; Mean Corpuscular HGB Conc 28.7 g/dL (31.6-35.5); Mean Corpuscular Hemoglobin 23.8 pg (28.0-33.3); Mean Corpuscular Volume 82.8 fL (83.0-100.0); Nucleated Red Blood Cells 0.4 /100 WBC (0); Platelet Count 423 K/mcL (140-400); Red Blood Count 4.37 M/mcL (4.19-5.50); Red Cell Distribution Width 19.5 % (11.5-14.5); Segmented Neutrophils % 78.6 %; White Blood Count 9.5 K/mcL (4.3-11.1)
[2020-09-07 14:44] LABS: Neutrophils # 7.5 K/mcL (1.6-8.9)
[2020-09-07 14:47] LABS: INR 1.7; Prothrombin Time 19.1 Seconds (9.4-12.1)
[2020-09-07 15:01] LABS: Alanine Aminotransferase 12 Units/L (7-52); Albumin 4.3 g/dL (3.5-5.7); Albumin/Globulin Ratio 1.6 (1.1-2.2); Alkaline Phosphatase 286 Units/L (34-104); Aspartate Amino Transferase 36 Units/L (13-39); BUN/Creatinine Ratio 18 (6-26); Bilirubin,Direct 0.2 mg/dL (0.0-0.2); Bilirubin,Indirect 0.4 mg/dL (0.0-1.0); Bilirubin,Total 0.6 mg/dL (0.3-1.0); Blood Urea Nitrogen 17 mg/dL (8-23); Calcium 9.5 mg/dL (8.6-10.3); Carbon Dioxide 23 mEq/L (23-29); Chloride 94 mEq/L (98-107); Globulin 2.7 g/dL (2.4-3.5); Glucose 122 mg/dL (70-105); Osmolality,Calculated 269 (280-300); Potassium 5.3 mEq/L (3.5-5.1); Sodium 128 mEq/L (136-145); Troponin I 0.04 ng/mL (< 0.04); eGFR For African Americans > 60 (> 60); eGFR For Non-African Americans > 60 (> 60)
[2020-09-07] MEDS ORDERED: Furosemide 40 MG/4 ML VIAL IVP ONE (15:11)
[2020-09-07 15:13] LABS: Hypochromasia Present (Not Present); Platelet Estimate Normal (Normal)
[2020-09-07] MEDS ORDERED: Naloxone 0.4 MG/ML INJ IVP PRN (15:34)
[2020-09-07 15:40] LABS: Adenovirus Not Detected (Not Detect); Bordetella Pertussis Not Detected (Not Detect); Chlamydophila pneumoniae Not Detected (Not Detect); Coronavirus 229E Not Detected (Not Detect); Coronavirus HKU1 Not Detected (Not Detect); Coronavirus NL63 Not Detected (Not Detect); Coronavirus OC43 Not Detected (Not Detect); Human Metapneumovirus Not Detected (Not Detect); Human Rhinovirus/Enterovirus Not Detected (Not Detect); Influenza A Subtype 2009 H1 Not Detected (Not Detect); Influenza B Not Detected (Not Detect); Mycoplasma pneumoniae Not Detected (Not Detect); Parainfluenza Virus 1 Not Detected (Not Detect); Parainfluenza Virus 2 Not Detected (Not Detect); Parainfluenza Virus 3 Not Detected (Not Detect); Parainfluenza Virus 4 Not Detected (Not Detect); Respiratory Syncytial Virus Not Detected (Not Detect); SARS-CoV-2 Not Detected (Not Detect)
[2020-09-07] MEDS ORDERED: Ipratropium/Albuterol Neb 3 ML IH PRN (16:14)
[2020-09-07] MEDS ORDERED: methylPREDNISolone 125 MG/2 ML VIAL IVP STA (16:14)
[2020-09-07] MEDS ORDERED: Ipratropium/Albuterol Neb 3 ML IH ONE (16:16)
[2020-09-07] MEDS ORDERED: Nitroglycerin 0.4 MG TAB.SUBL SL PRN (16:16)
[2020-09-07 17:10] LABS: Estimated Average Glucose 177 mg/dl
[2020-09-07] MEDS: Ipratropium/Albuterol Neb 3 ML IH SCH ×2 (20:41→23:36)
[2020-09-07] MEDS: Budesonide/Formoterol 80/4.5 1 PUFF INH IH SCH (20:42)
[2020-09-07 21:58] LABS: BUN/Creatinine Ratio 19 (6-26); Blood Urea Nitrogen 17 mg/dL (8-23); Calcium 9.2 mg/dL (8.6-10.3); Carbon Dioxide 23 mEq/L (23-29); Chloride 95 mEq/L (98-107); Glucose 85 mg/dL (70-105); Osmolality,Calculated 269 (280-300); Potassium 5.1 mEq/L (3.5-5.1); Sodium 129 mEq/L (136-145); Troponin I 0.03 ng/mL (< 0.04); eGFR For African Americans > 60 (> 60); eGFR For Non-African Americans > 60 (> 60)
[2020-09-07] MEDS: *HR* OxyCODONE/APAP 5/325 TABLET PO PRN (22:20)
[2020-09-07] MEDS: Melatonin 3 MG TABLET PO SCH (22:22)
[2020-09-07] MEDS: Gabapentin 400 MG CAPSULE PO SCH (22:22)
[2020-09-07] MEDS: Apixaban 5 MG TABLET PO SCH (22:22)
[2020-09-07] MEDS: Furosemide 40 MG/4 ML VIAL IVP SCH (22:23)
[2020-09-07] MEDS: MethylPREDNISolone 40 MG/ML VIAL IVP SCH (22:23)
[2020-09-08] MEDS: Ipratropium/Albuterol Neb 3 ML IH SCH ×6 (03:55→23:42)
[2020-09-08 05:19] LABS: Basophils % 0.2 %; Hematocrit 28.9 % (37.5-50.1); Immature Granulocytes % 0.4 % (0-4); Lymphocytes # 0.2 K/mcL (0.6-4.6); Lymphocytes % 3.8 %; Mean Corpuscular HGB Conc 29.1 g/dL (31.6-35.5); Mean Corpuscular Hemoglobin 23.4 pg (28.0-33.3); Mean Corpuscular Volume 80.5 fL (83.0-100.0); Mean Platelet Volume 10.4 fL (9.4-12.4); Monocytes # 0.1 K/mcL (0.0-1.3); Monocytes % 1.7 %; Neutrophils # 4.5 K/mcL (1.6-8.9); Platelet Count 305 K/mcL (140-400); Red Blood Count 3.59 M/mcL (4.19-5.50); Red Cell Distribution Width 18.8 % (11.5-14.5); Segmented Neutrophils % 93.9 %; White Blood Count 4.8 K/mcL (4.3-11.1)
[2020-09-08 05:25] LABS: Hemoglobin 8.4 g/dL (12.9-16.9)
[2020-09-08 05:35] LABS: BUN/Creatinine Ratio 20 (6-26); Blood Urea Nitrogen 21 mg/dL (8-23); Calcium 8.9 mg/dL (8.6-10.3); Carbon Dioxide 26 mEq/L (23-29); Chloride 96 mEq/L (98-107); Glucose 127 mg/dL (70-105); Osmolality,Calculated 273 (280-300); Potassium 4.6 mEq/L (3.5-5.1); Sodium 129 mEq/L (136-145); eGFR For African Americans > 60 (> 60); eGFR For Non-African Americans > 60 (> 60)
[2020-09-08] MEDS: Metoprolol XL (24 HR) Succ 50 MG TAB.ER.24H PO SCH (09:00)
[2020-09-08] MEDS: Furosemide 40 MG/4 ML VIAL IVP SCH ×2 (09:04→21:15)
[2020-09-08] MEDS: MethylPREDNISolone 40 MG/ML VIAL IVP SCH (09:04)
[2020-09-08] MEDS: Gabapentin 400 MG CAPSULE PO SCH ×3 (09:05→21:14)
[2020-09-08] MEDS: Aspirin Enteric Coated 81 MG Tablet PO SCH (09:05)
[2020-09-08] MEDS: Magnesium Oxide 400 MG TABLET PO SCH (09:05)
[2020-09-08] MEDS: *HR* Amiodarone 200 MG TABLET PO SCH (09:05)
[2020-09-08] MEDS: *HR* OxyCODONE/APAP 5/325 TABLET PO PRN ×2 (09:06→15:27)
[2020-09-08] MEDS: Apixaban 5 MG TABLET PO SCH ×2 (09:06→21:14)
[2020-09-08] MEDS: Budesonide/Formoterol 80/4.5 1 PUFF INH IH SCH ×2 (11:11→20:05)
[2020-09-08] MEDS: Melatonin 3 MG TABLET PO SCH (21:14)
[2020-09-09] MEDS: *HR* OxyCODONE/APAP 5/325 TABLET PO PRN ×2 (00:18→06:06)
[2020-09-09 01:37] LABS: Immature Granulocytes % 0.6 % (0-4); Lymphocytes # 0.3 K/mcL (0.6-4.6); Lymphocytes % 4.6 %; Mean Corpuscular HGB Conc 29.6 g/dL (31.6-35.5); Mean Corpuscular Hemoglobin 23.7 pg (28.0-33.3); Mean Corpuscular Volume 79.9 fL (83.0-100.0); Mean Platelet Volume 9.9 fL (9.4-12.4); Monocytes # 0.8 K/mcL (0.0-1.3); Monocytes % 11.1 %; Neutrophils # 5.9 K/mcL (1.6-8.9); Nucleated Red Blood Cells 0.4 /100 WBC (0); Platelet Count 315 K/mcL (140-400); Red Blood Count 3.38 M/mcL (4.19-5.50); Red Cell Distribution Width 18.8 % (11.5-14.5); Segmented Neutrophils % 83.7 %
[2020-09-09 01:55] LABS: BUN/Creatinine Ratio 23 (6-26); Blood Urea Nitrogen 31 mg/dL (8-23); Calcium 8.7 mg/dL (8.6-10.3); Carbon Dioxide 26 mEq/L (23-29); Chloride 96 mEq/L (98-107); Glucose 155 mg/dL (70-105); Osmolality,Calculated 284 (280-300); Potassium 4.6 mEq/L (3.5-5.1); Sodium 132 mEq/L (136-145); eGFR For African Americans > 60 (> 60); eGFR For Non-African Americans 52 (> 60)
[2020-09-09] MEDS: Ipratropium/Albuterol Neb 3 ML IH SCH ×2 (03:29→07:49)
[2020-09-09 07:15] VITALS: BP 117/77
[2020-09-09] MEDS: Budesonide/Formoterol 80/4.5 1 PUFF INH IH SCH (07:49)
[2020-09-09] MEDS: Gabapentin 400 MG CAPSULE PO SCH (08:40)
[2020-09-09] MEDS: Furosemide 40 MG/4 ML VIAL IVP SCH (08:40)
[2020-09-09] MEDS: Magnesium Oxide 400 MG TABLET PO SCH (08:40)
[2020-09-09] MEDS: Metoprolol XL (24 HR) Succ 50 MG TAB.ER.24H PO SCH (08:40)
[2020-09-09] MEDS: Aspirin Enteric Coated 81 MG Tablet PO SCH (08:41)
[2020-09-09] MEDS: Apixaban 5 MG TABLET PO SCH (08:41)
[2020-09-09] MEDS: *HR* Amiodarone 200 MG TABLET PO SCH (08:41)
[2020-09-09] MEDS ORDERED: predniSONE 20 MG TABLET PO SCH (09:00)
== END 2020-09-09 11:36 | disposition home or self-care (01) | DRG 291 ==
LOC: EMEROOARM 14:04 → 2NNU 18:55 → SUATTDRO 18:55 → 2NNU 20:10
PROVIDERS: ADMIT Student in an Organized Health Care Education/Training Program; ATTEND Internal Medicine

== ENCOUNTER 2020-10-09 22:54 | Inpatient (IN) ==
[2020-10-09 23:52] LABS: Basophils % 0.6 %; Eosinophils % 1.1 %; Hemoglobin 9.4 g/dL (12.9-16.9)
[2020-10-09 23:53] LABS: Basophils # 0.1 K/mcL (0.0-0.2); Eosinophils # 0.1 K/mcL (0.0-0.6); Hematocrit 32.6 % (37.5-50.1); Immature Granulocytes % 1.9 % (0-4); Lymphocytes # 2.7 K/mcL (0.6-4.6); Mean Corpuscular HGB Conc 28.8 g/dL (31.6-35.5); Mean Corpuscular Hemoglobin 22.5 pg (28.0-33.3); Monocytes # 0.7 K/mcL (0.0-1.3); Monocytes % 7.3 %; Neutrophils # 6.3 K/mcL (1.6-8.9); Platelet Count 309 K/mcL (140-400); Red Blood Count 4.18 M/mcL (4.19-5.50); Red Cell Distribution Width 19.7 % (11.5-14.5); Segmented Neutrophils % 62.1 %; White Blood Count 10.1 K/mcL (4.3-11.1)
[2020-10-09 23:59] LABS: INR 1.4; Prothrombin Time 15.5 Seconds (9.4-12.1)
[2020-10-10 00:18] LABS: Alanine Aminotransferase 9 Units/L (7-52); Albumin/Globulin Ratio 1.4 (1.1-2.2); Alkaline Phosphatase 196 Units/L (34-104); Aspartate Amino Transferase 28 Units/L (13-39); BUN/Creatinine Ratio 17 (6-26); Bilirubin,Indirect 0.3 mg/dL (0.0-1.0); Bilirubin,Total 0.3 mg/dL (0.3-1.0); Blood Urea Nitrogen 25 mg/dL (8-23); Calcium 8.4 mg/dL (8.6-10.3); Carbon Dioxide 25 mEq/L (23-29); Chloride 99 mEq/L (98-107); Ethanol < 10 mg/dL (Less than 10); Globulin 2.9 g/dL (2.4-3.5); Glucose 97 mg/dL (70-105); Osmolality,Calculated 286 (280-300); Sodium 136 mEq/L (136-145); Total Protein 6.9 g/dL (6.4-8.9); eGFR For African Americans 56 (> 60); eGFR For Non-African Americans 46 (> 60)
[2020-10-10 00:19] LABS: Bilirubin,Urine Negative (Negative); Blood,Urine Negative (Negative); Clarity,Urine Clear (Clear); Color,Urine Colorless (Yellow); Glucose,Urine (UA) Normal (Normal); Ketones,Urine Negative (Negative); Leukocyte Esterase,Urine Negative (Negative); Nitrite,Urine Negative (Negative); Protein,Urine Negative (Neg-Trace); Urobilinogen,Urine Normal (Normal)
[2020-10-10 00:21] LABS: Hypochromasia Present (Not Present); Platelet Estimate Normal (Normal); Poikilocytosis 1+ (Not Present)
[2020-10-10 00:42] LABS: Amphetamine Screen,Urine Positive ng/mL (Cutoff=1000); Barbiturate Screen,Urine Negative ng/mL (Cutoff=200); Benzodiazepines Screen,Urine Negative ng/mL (Cutoff=200); Cannabinoid Screen,Urine Negative ng/mL (Cutoff = 50); Cocaine Screen,Urine Negative ng/mL (Cutoff= 300); Opiate Screen,Urine Negative ng/mL (Cutoff=300); Phencyclidine Screen,Urine Negative ng/mL (Cutoff=25)
[2020-10-10] MEDS ORDERED: Isovue-370 500 ML BOTTLE IVP ONE (01:18)
[2020-10-10] MEDS ORDERED: 0.9 % Sodium Chloride 500 ML IV ONE (01:20)
[2020-10-10 01:44] LABS: Adenovirus Not Detected (Not Detect); Bordetella Pertussis Not Detected (Not Detect); Chlamydophila pneumoniae Not Detected (Not Detect); Coronavirus 229E Not Detected (Not Detect); Coronavirus HKU1 Not Detected (Not Detect); Coronavirus NL63 Not Detected (Not Detect); Coronavirus OC43 Not Detected (Not Detect); Human Metapneumovirus Not Detected (Not Detect); Human Rhinovirus/Enterovirus Not Detected (Not Detect); Influenza A Subtype 2009 H1 Not Detected (Not Detect); Influenza B Not Detected (Not Detect); Mycoplasma pneumoniae Not Detected (Not Detect); Parainfluenza Virus 1 Not Detected (Not Detect); Parainfluenza Virus 2 Not Detected (Not Detect); Parainfluenza Virus 3 Not Detected (Not Detect); Parainfluenza Virus 4 Not Detected (Not Detect); Respiratory Syncytial Virus Not Detected (Not Detect); SARS-CoV-2 Not Detected (Not Detect)
[2020-10-10] MEDS ORDERED: Naloxone 0.4 MG/ML INJ IVP PRN ×2 (05:45→05:47)
[2020-10-10] MEDS ORDERED: Ondansetron ODT 4 MG TAB.RAPDIS SL PRN (05:51)
[2020-10-10 07:07] LABS: VBG HCO3 25 mEq/L (21-27); VBG PCO2 47 mmHg (41-51); VBG PH 7.34 pH Units (7.32-7.42); VBG PO2 104 mmHg (25-50)
[2020-10-10 07:11] LABS: Hematocrit 31.2 % (37.5-50.1); Hemoglobin 8.7 g/dL (12.9-16.9); Mean Corpuscular HGB Conc 27.9 g/dL (31.6-35.5); Mean Corpuscular Hemoglobin 21.8 pg (28.0-33.3); Platelet Count 281 K/mcL (140-400); Red Cell Distribution Width 19.5 % (11.5-14.5); White Blood Count 8.2 K/mcL (4.3-11.1)
[2020-10-10 07:23] LABS: BUN/Creatinine Ratio 16 (6-26); Blood Urea Nitrogen 22 mg/dL (8-23); Calcium 8.2 mg/dL (8.6-10.3); Carbon Dioxide 25 mEq/L (23-29); Chloride 105 mEq/L (98-107); Glucose 77 mg/dL (70-105); Magnesium 2.1 mg/dL (1.6-2.6); Osmolality,Calculated 290 (280-300); Phosphorous 3.8 mg/dL (2.7-4.5); Potassium 3.5 mEq/L (3.5-5.1); Sodium 139 mEq/L (136-145); eGFR For African Americans > 60 (> 60); eGFR For Non-African Americans 53 (> 60)
[2020-10-10 07:30] LABS: Albumin 3.5 g/dL (3.5-5.7); Albumin/Globulin Ratio 1.5 (1.1-2.2); Bilirubin,Direct 0.1 mg/dL (0.0-0.2); Bilirubin,Indirect 0.1 mg/dL (0.0-1.0); Bilirubin,Total 0.2 mg/dL (0.3-1.0); Globulin 2.3 g/dL (2.4-3.5); Salicylate 29.8 mg/dL (15.0-30.0); Total Protein 5.8 g/dL (6.4-8.9)
[2020-10-10 07:41] LABS: Thyroid Stimulating Hormone 0.834 mcIU/mL (0.340-5.600)
[2020-10-10 07:46] LABS: % Iron Saturation 5 % (20-55); Iron 26 mcg/dL (65-175); Transferrin 379 mg/dL (203-362)
[2020-10-10 07:55] LABS: Ferritin 8 ng/mL (20-250)
[2020-10-10] MEDS: 0.45 % Sodium Chloride w/KCl 20 MEQ/1,000 ML MLS IVC SCH (17:38)
[2020-10-11] MEDS: 0.45 % Sodium Chloride w/KCl 20 MEQ/1,000 ML MLS IVC SCH ×2 (02:51→07:54)
[2020-10-11 03:59] LABS: Hemoglobin 8.6 g/dL (12.9-16.9); Mean Corpuscular HGB Conc 27.7 g/dL (31.6-35.5); Mean Corpuscular Hemoglobin 21.7 pg (28.0-33.3); Mean Corpuscular Volume 78.1 fL (83.0-100.0); Mean Platelet Volume 9.7 fL (9.4-12.4); Platelet Count 278 K/mcL (140-400); Red Blood Count 3.97 M/mcL (4.19-5.50); Red Cell Distribution Width 19.3 % (11.5-14.5); White Blood Count 8.2 K/mcL (4.3-11.1)
[2020-10-11 04:18] LABS: BUN/Creatinine Ratio 19 (6-26); Blood Urea Nitrogen 22 mg/dL (8-23); Calcium 8.7 mg/dL (8.6-10.3); Carbon Dioxide 24 mEq/L (23-29); Chloride 109 mEq/L (98-107); Glucose 91 mg/dL (70-105); Osmolality,Calculated 295 (280-300); Sodium 141 mEq/L (136-145); eGFR For African Americans > 60 (> 60); eGFR For Non-African Americans > 60 (> 60)
[2020-10-11] MEDS ORDERED: Gadolinium Contrast Agent (WT Based) IV PRN (08:23)
[2020-10-11] MEDS: Aspirin Enteric Coated 81 MG Tablet PO SCH (10:10)
[2020-10-11] MEDS: Gabapentin 400 MG CAPSULE PO SCH ×3 (10:10→20:13)
[2020-10-11] MEDS: Apixaban 5 MG TABLET PO SCH ×2 (10:11→20:14)
[2020-10-11] MEDS: Metoprolol XL (24 HR) Succ 50 MG TAB.ER.24H PO SCH (10:11)
[2020-10-11] MEDS: Magnesium Oxide 400 MG TABLET PO SCH (10:13)
[2020-10-11] MEDS: *HR* Amiodarone 200 MG TABLET PO SCH (10:13)
[2020-10-11] MEDS: Budesonide/Formoterol 80/4.5 1 PUFF INH IH SCH ×2 (12:10→19:44)
[2020-10-11] MEDS ORDERED: Acetaminophen 325 MG TABLET PO PRN (21:58)
[2020-10-12 03:18] LABS: Hematocrit 28.9 % (37.5-50.1); Hemoglobin 8.1 g/dL (12.9-16.9); Mean Corpuscular Hemoglobin 22.1 pg (28.0-33.3); Mean Platelet Volume 10.1 fL (9.4-12.4); Platelet Count 270 K/mcL (140-400); Red Blood Count 3.66 M/mcL (4.19-5.50); Red Cell Distribution Width 19.6 % (11.5-14.5); White Blood Count 9.2 K/mcL (4.3-11.1)
[2020-10-12 03:28] LABS: BUN/Creatinine Ratio 13 (6-26); Blood Urea Nitrogen 15 mg/dL (8-23); Calcium 8.6 mg/dL (8.6-10.3); Carbon Dioxide 25 mEq/L (23-29); Chloride 105 mEq/L (98-107); Glucose 113 mg/dL (70-105); Osmolality,Calculated 286 (280-300); Potassium 4.3 mEq/L (3.5-5.1); Sodium 137 mEq/L (136-145); eGFR For African Americans > 60 (> 60); eGFR For Non-African Americans > 60 (> 60)
[2020-10-12] MEDS: Apixaban 5 MG TABLET PO SCH ×2 (07:16→20:22)
[2020-10-12] MEDS: Aspirin Enteric Coated 81 MG Tablet PO SCH (07:17)
[2020-10-12] MEDS: Gabapentin 400 MG CAPSULE PO SCH ×3 (07:17→20:21)
[2020-10-12] MEDS: Magnesium Oxide 400 MG TABLET PO SCH (07:17)
[2020-10-12] MEDS: *HR* Amiodarone 200 MG TABLET PO SCH (07:18)
[2020-10-12] MEDS: Budesonide/Formoterol 80/4.5 1 PUFF INH IH SCH ×2 (08:15→19:41)
[2020-10-12] MEDS: Metoprolol XL (24 HR) Succ 50 MG TAB.ER.24H PO SCH (08:18)
[2020-10-12] MEDS ORDERED: Lidocaine 1% 20 ML MDV ONE (11:51)
[2020-10-12] MEDS ORDERED: *HR* Midazolam HCl 2 MG/2 ML VIAL ONE ×2 (12:41→12:52)
[2020-10-12] MEDS ORDERED: Gadolinium Contrast Agent (WT Based) IV PRN (17:44)
[2020-10-12] MEDS ORDERED: Naloxone 0.4 MG/ML INJ IVP PRN (17:44)
[2020-10-12] MEDS: Acetaminophen 325 MG TABLET PO PRN (20:20)
[2020-10-12] MEDS: *HR* OxyCODONE/APAP 5/325 TABLET PO PRN (21:25)
[2020-10-13] MEDS: *HR* OxyCODONE/APAP 5/325 TABLET PO PRN ×5 (01:24→19:42)
[2020-10-13 06:26] LABS: Hemoglobin 8.6 g/dL (12.9-16.9); Mean Corpuscular Hemoglobin 22.3 pg (28.0-33.3); Red Blood Count 3.85 M/mcL (4.19-5.50)
[2020-10-13 06:27] LABS: Hematocrit 30.1 % (37.5-50.1); Mean Corpuscular HGB Conc 28.6 g/dL (31.6-35.5); Mean Corpuscular Volume 78.2 fL (83.0-100.0); Mean Platelet Volume 9.7 fL (9.4-12.4); Platelet Count 271 K/mcL (140-400); Red Cell Distribution Width 20.1 % (11.5-14.5); White Blood Count 10.8 K/mcL (4.3-11.1)
[2020-10-13 06:45] LABS: BUN/Creatinine Ratio 15 (6-26); Blood Urea Nitrogen 15 mg/dL (8-23); Carbon Dioxide 23 mEq/L (23-29); Chloride 101 mEq/L (98-107); Glucose 127 mg/dL (70-105); Osmolality,Calculated 276 (280-300); Potassium 4.3 mEq/L (3.5-5.1); Sodium 132 mEq/L (136-145); eGFR For African Americans > 60 (> 60); eGFR For Non-African Americans > 60 (> 60)
[2020-10-13] MEDS: Magnesium Oxide 400 MG TABLET PO SCH (08:12)
[2020-10-13] MEDS: Metoprolol XL (24 HR) Succ 50 MG TAB.ER.24H PO SCH (08:12)
[2020-10-13] MEDS: Aspirin Enteric Coated 81 MG Tablet PO SCH (08:12)
[2020-10-13] MEDS: Gabapentin 400 MG CAPSULE PO SCH ×3 (08:13→19:41)
[2020-10-13] MEDS: *HR* Amiodarone 200 MG TABLET PO SCH (08:13)
[2020-10-13] MEDS: Apixaban 5 MG TABLET PO SCH ×2 (08:13→19:43)
[2020-10-13] MEDS: Budesonide/Formoterol 80/4.5 1 PUFF INH IH SCH ×2 (09:40→20:34)
[2020-10-13] MEDS: Ondansetron ODT 4 MG TAB.RAPDIS SL PRN (19:42)
[2020-10-14] MEDS: *HR* OxyCODONE/APAP 5/325 TABLET PO PRN ×5 (03:52→21:36)
[2020-10-14 05:25] LABS: Eosinophils % 0.6 %; Hematocrit 29.3 % (37.5-50.1); Immature Granulocytes % 2.3 % (0-4); Nucleated Red Blood Cells 0.2 /100 WBC (0); Red Cell Distribution Width 20.3 % (11.5-14.5)
[2020-10-14 05:26] LABS: Basophils # 0.1 K/mcL (0.0-0.2); Basophils % 0.4 %; Eosinophils # 0.1 K/mcL (0.0-0.6); Hemoglobin 8.1 g/dL (12.9-16.9); Lymphocytes # 2.8 K/mcL (0.6-4.6); Lymphocytes % 24.4 %; Mean Corpuscular HGB Conc 27.6 g/dL (31.6-35.5); Mean Corpuscular Volume 79.4 fL (83.0-100.0); Mean Platelet Volume 10.2 fL (9.4-12.4); Monocytes # 1.3 K/mcL (0.0-1.3); Monocytes % 11.1 %; Neutrophils # 6.9 K/mcL (1.6-8.9); Platelet Count 261 K/mcL (140-400); Red Blood Count 3.69 M/mcL (4.19-5.50); Segmented Neutrophils % 61.2 %; White Blood Count 11.3 K/mcL (4.3-11.1)
[2020-10-14 05:36] LABS: BUN/Creatinine Ratio 21 (6-26); Blood Urea Nitrogen 22 mg/dL (8-23); Calcium 8.6 mg/dL (8.6-10.3); Carbon Dioxide 24 mEq/L (23-29); Chloride 99 mEq/L (98-107); Glucose 111 mg/dL (70-105); Osmolality,Calculated 278 (280-300); Potassium 4.6 mEq/L (3.5-5.1); Sodium 132 mEq/L (136-145); eGFR For African Americans > 60 (> 60); eGFR For Non-African Americans > 60 (> 60)
[2020-10-14 05:59] LABS: Anisocytosis 1+ (Not Present); Poikilocytosis 1+ (Not Present)
[2020-10-14 06:00] LABS: Hypochromasia Present (Not Present); Platelet Estimate Normal (Normal)
[2020-10-14] MEDS: Apixaban 5 MG TABLET PO SCH ×2 (08:12→21:37)
[2020-10-14] MEDS: Magnesium Oxide 400 MG TABLET PO SCH (08:12)
[2020-10-14] MEDS: Aspirin Enteric Coated 81 MG Tablet PO SCH (08:12)
[2020-10-14] MEDS: Metoprolol XL (24 HR) Succ 50 MG TAB.ER.24H PO SCH (08:12)
[2020-10-14] MEDS: Gabapentin 400 MG CAPSULE PO SCH ×3 (08:13→21:37)
[2020-10-14] MEDS: Budesonide/Formoterol 80/4.5 1 PUFF INH IH SCH ×2 (10:48→22:35)
[2020-10-14] MEDS: *HR* Amiodarone 200 MG TABLET PO SCH (12:35)
[2020-10-14] MEDS: Ondansetron ODT 4 MG TAB.RAPDIS SL PRN (20:34)
[2020-10-15] MEDS: *HR* OxyCODONE/APAP 5/325 TABLET PO PRN ×5 (02:03→20:34)
[2020-10-15 03:48] LABS: Basophils % 0.5 %; Hemoglobin 7.9 g/dL (12.9-16.9); Nucleated Red Blood Cells 0.4 /100 WBC (0)
[2020-10-15 03:50] LABS: Basophils # 0.1 K/mcL (0.0-0.2); Eosinophils # 0.1 K/mcL (0.0-0.6); Eosinophils % 0.6 %; Hematocrit 28.1 % (37.5-50.1); Immature Granulocytes % 4.4 % (0-4); Lymphocytes # 2.9 K/mcL (0.6-4.6); Lymphocytes % 26.3 %; Mean Corpuscular HGB Conc 28.1 g/dL (31.6-35.5); Mean Corpuscular Hemoglobin 22.8 pg (28.0-33.3); Mean Platelet Volume 10.1 fL (9.4-12.4); Monocytes # 1.1 K/mcL (0.0-1.3); Monocytes % 10.2 %; Neutrophils # 6.4 K/mcL (1.6-8.9); Platelet Count 265 K/mcL (140-400); Red Blood Count 3.47 M/mcL (4.19-5.50)
[2020-10-15 04:08] LABS: BUN/Creatinine Ratio 21 (6-26); Blood Urea Nitrogen 26 mg/dL (8-23); Calcium 8.8 mg/dL (8.6-10.3); Carbon Dioxide 21 mEq/L (23-29); Chloride 101 mEq/L (98-107); Glucose 112 mg/dL (70-105); Osmolality,Calculated 280 (280-300); Potassium 4.5 mEq/L (3.5-5.1); Sodium 132 mEq/L (136-145); eGFR For African Americans > 60 (> 60); eGFR For Non-African Americans 59 (> 60)
[2020-10-15 04:38] LABS: Anisocytosis 2+ (Not Present); Hypochromasia Present (Not Present); Microcytosis Present (Not Present); Platelet Estimate Normal (Normal)
[2020-10-15] MEDS: Aspirin Enteric Coated 81 MG Tablet PO SCH (08:15)
[2020-10-15] MEDS: Gabapentin 400 MG CAPSULE PO SCH ×3 (08:15→19:43)
[2020-10-15] MEDS: Metoprolol XL (24 HR) Succ 50 MG TAB.ER.24H PO SCH (08:15)
[2020-10-15] MEDS: Magnesium Oxide 400 MG TABLET PO SCH (08:16)
[2020-10-15] MEDS: *HR* Amiodarone 200 MG TABLET PO SCH (08:16)
[2020-10-15] MEDS: Apixaban 5 MG TABLET PO SCH ×2 (08:16→19:43)
[2020-10-15] MEDS: Budesonide/Formoterol 80/4.5 1 PUFF INH IH SCH ×2 (08:24→20:57)
[2020-10-15] MEDS: Ondansetron ODT 4 MG TAB.RAPDIS SL PRN ×2 (08:26→19:43)
[2020-10-16] MEDS: *HR* OxyCODONE/APAP 5/325 TABLET PO PRN ×5 (00:34→19:29)
[2020-10-16 06:45] LABS: Basophils # 0.1 K/mcL (0.0-0.2); Basophils % 0.5 %; Eosinophils # 0.1 K/mcL (0.0-0.6); Eosinophils % 0.6 %; Hemoglobin 8.2 g/dL (12.9-16.9); Immature Granulocytes % 2.9 % (0-4); Lymphocytes # 2.9 K/mcL (0.6-4.6); Lymphocytes % 22.5 %; Mean Corpuscular HGB Conc 28.3 g/dL (31.6-35.5); Mean Corpuscular Hemoglobin 22.5 pg (28.0-33.3); Mean Corpuscular Volume 79.7 fL (83.0-100.0); Mean Platelet Volume 9.9 fL (9.4-12.4); Monocytes # 1.2 K/mcL (0.0-1.3); Monocytes % 9.6 %; Neutrophils # 8.1 K/mcL (1.6-8.9); Nucleated Red Blood Cells 0.9 /100 WBC (0); Platelet Count 267 K/mcL (140-400); Red Blood Count 3.64 M/mcL (4.19-5.50); Red Cell Distribution Width 21.6 % (11.5-14.5); Segmented Neutrophils % 63.9 %; White Blood Count 12.7 K/mcL (4.3-11.1)
[2020-10-16 07:06] LABS: BUN/Creatinine Ratio 17 (6-26); Blood Urea Nitrogen 24 mg/dL (8-23); Calcium 8.7 mg/dL (8.6-10.3); Carbon Dioxide 21 mEq/L (23-29); Chloride 101 mEq/L (98-107); Glucose 109 mg/dL (70-105); Osmolality,Calculated 279 (280-300); Potassium 4.7 mEq/L (3.5-5.1); Sodium 132 mEq/L (136-145); eGFR For African Americans > 60 (> 60); eGFR For Non-African Americans 52 (> 60)
[2020-10-16 07:07] LABS: Anisocytosis 2+ (Not Present); Macrocytosis Present (Not Present); Platelet Estimate Normal (Normal); Reactive Lymphocytes Present (Not Present)
[2020-10-16] MEDS: Metoprolol XL (24 HR) Succ 50 MG TAB.ER.24H PO SCH (07:45)
[2020-10-16] MEDS: Magnesium Oxide 400 MG TABLET PO SCH (07:45)
[2020-10-16] MEDS: Aspirin Enteric Coated 81 MG Tablet PO SCH (07:45)
[2020-10-16] MEDS: Gabapentin 400 MG CAPSULE PO SCH ×3 (07:45→19:29)
[2020-10-16] MEDS: *HR* Amiodarone 200 MG TABLET PO SCH (07:45)
[2020-10-16] MEDS: Apixaban 5 MG TABLET PO SCH ×2 (07:45→19:29)
[2020-10-16] MEDS: Budesonide/Formoterol 80/4.5 1 PUFF INH IH SCH ×2 (07:53→19:47)
[2020-10-16] MEDS ORDERED: 0.9 % Sodium Chloride 250 ML IVC SCH (17:45)
[2020-10-16] MEDS: Ondansetron ODT 4 MG TAB.RAPDIS SL PRN (18:05)
[2020-10-17] MEDS: *HR* OxyCODONE/APAP 5/325 TABLET PO PRN ×6 (01:36→23:51)
[2020-10-17 03:34] LABS: Basophils % 0.3 %; Eosinophils # 0.1 K/mcL (0.0-0.6); Eosinophils % 0.4 %; Hematocrit 29.7 % (37.5-50.1); Hemoglobin 8.2 g/dL (12.9-16.9); Immature Granulocytes % 2.8 % (0-4); Lymphocytes # 2.4 K/mcL (0.6-4.6); Lymphocytes % 18.2 %; Mean Corpuscular HGB Conc 27.6 g/dL (31.6-35.5); Mean Corpuscular Hemoglobin 22.2 pg (28.0-33.3); Mean Corpuscular Volume 80.5 fL (83.0-100.0); Mean Platelet Volume 10.4 fL (9.4-12.4); Monocytes # 1.2 K/mcL (0.0-1.3); Monocytes % 8.9 %; Neutrophils # 9.3 K/mcL (1.6-8.9); Nucleated Red Blood Cells 0.7 /100 WBC (0); Platelet Count 267 K/mcL (140-400); Red Blood Count 3.69 M/mcL (4.19-5.50); Red Cell Distribution Width 22.4 % (11.5-14.5); Segmented Neutrophils % 69.4 %; White Blood Count 13.4 K/mcL (4.3-11.1)
[2020-10-17 03:39] LABS: BUN/Creatinine Ratio 17 (6-26); Blood Urea Nitrogen 20 mg/dL (8-23); Calcium 8.7 mg/dL (8.6-10.3); Carbon Dioxide 25 mEq/L (23-29); Chloride 101 mEq/L (98-107); Glucose 110 mg/dL (70-105); Osmolality,Calculated 277 (280-300); Potassium 4.3 mEq/L (3.5-5.1); Sodium 132 mEq/L (136-145); eGFR For African Americans > 60 (> 60); eGFR For Non-African Americans > 60 (> 60)
[2020-10-17 04:00] LABS: Anisocytosis 1+ (Not Present); Macrocytosis Present (Not Present); Platelet Estimate Normal (Normal)
[2020-10-17] MEDS: Budesonide/Formoterol 80/4.5 1 PUFF INH IH SCH ×2 (07:19→20:33)
[2020-10-17] MEDS: Magnesium Oxide 400 MG TABLET PO SCH (07:27)
[2020-10-17] MEDS: *HR* Amiodarone 200 MG TABLET PO SCH (07:27)
[2020-10-17] MEDS: Aspirin Enteric Coated 81 MG Tablet PO SCH (07:27)
[2020-10-17] MEDS: Gabapentin 400 MG CAPSULE PO SCH ×3 (07:27→20:50)
[2020-10-17] MEDS: Apixaban 5 MG TABLET PO SCH ×2 (07:27→20:50)
[2020-10-17] MEDS: Metoprolol XL (24 HR) Succ 50 MG TAB.ER.24H PO SCH (07:28)
[2020-10-18] MEDS: *HR* OxyCODONE/APAP 5/325 TABLET PO PRN ×5 (03:55→20:51)
[2020-10-18 06:22] LABS: Monocytes % 6.3 %
[2020-10-18 06:24] LABS: Basophils % 0.2 %; Eosinophils % 0.1 %; Hematocrit 27.6 % (37.5-50.1); Hemoglobin 7.9 g/dL (12.9-16.9); Immature Granulocytes % 2.7 % (0-4); Lymphocytes # 2.1 K/mcL (0.6-4.6); Lymphocytes % 15.5 %; Mean Corpuscular HGB Conc 28.6 g/dL (31.6-35.5); Mean Corpuscular Hemoglobin 23.1 pg (28.0-33.3); Mean Corpuscular Volume 80.7 fL (83.0-100.0); Neutrophils # 10.1 K/mcL (1.6-8.9); Nucleated Red Blood Cells 0.4 /100 WBC (0); Platelet Count 225 K/mcL (140-400); Red Blood Count 3.42 M/mcL (4.19-5.50); Red Cell Distribution Width 22.8 % (11.5-14.5); Segmented Neutrophils % 75.2 %; White Blood Count 13.4 K/mcL (4.3-11.1)
[2020-10-18 06:26] LABS: Monocytes # 0.8 K/mcL (0.0-1.3)
[2020-10-18 06:46] LABS: BUN/Creatinine Ratio 19 (6-26); Blood Urea Nitrogen 18 mg/dL (8-23); Calcium 8.5 mg/dL (8.6-10.3); Carbon Dioxide 21 mEq/L (23-29); Chloride 99 mEq/L (98-107); Glucose 92 mg/dL (70-105); Osmolality,Calculated 270 (280-300); Potassium 4.2 mEq/L (3.5-5.1); Sodium 129 mEq/L (136-145); eGFR For African Americans > 60 (> 60); eGFR For Non-African Americans > 60 (> 60)
[2020-10-18 06:58] LABS: Anisocytosis 1+ (Not Present); Hypochromasia Present (Not Present); Poikilocytosis 1+ (Not Present)
[2020-10-18 06:59] LABS: Platelet Estimate Normal (Normal); Polychromasia 1+ (Not Present)
[2020-10-18] MEDS: Gabapentin 400 MG CAPSULE PO SCH ×3 (07:40→20:51)
[2020-10-18] MEDS: Magnesium Oxide 400 MG TABLET PO SCH (07:40)
[2020-10-18] MEDS: Aspirin Enteric Coated 81 MG Tablet PO SCH (07:41)
[2020-10-18] MEDS: Apixaban 5 MG TABLET PO SCH ×2 (07:41→20:51)
[2020-10-18] MEDS: Metoprolol XL (24 HR) Succ 50 MG TAB.ER.24H PO SCH (07:41)
[2020-10-18] MEDS: *HR* Amiodarone 200 MG TABLET PO SCH (07:42)
[2020-10-18] MEDS: Budesonide/Formoterol 80/4.5 1 PUFF INH IH SCH ×2 (09:31→20:05)
[2020-10-18] MEDS ORDERED: Methyl Salicylate/Menthol 57 APPL/57 GM TUBE TP PRN (09:34)
[2020-10-18] MEDS: Cefepime HCl 2,000 MG in 0.9 % Sodium Chloride Mini Bag 100 ML IVPB SCH (17:29)
[2020-10-18] MEDS: metroNIDAZOLE 500 MG TABLET PO SCH (20:52)
[2020-10-19] MEDS: *HR* OxyCODONE/APAP 5/325 TABLET PO PRN ×5 (01:08→18:10)
[2020-10-19 06:12] LABS: Hemoglobin 8.5 g/dL (12.9-16.9); Nucleated Red Blood Cells 0.2 /100 WBC (0)
[2020-10-19 06:13] LABS: Hematocrit 30.3 % (37.5-50.1); Mean Corpuscular HGB Conc 28.1 g/dL (31.6-35.5); Mean Corpuscular Hemoglobin 22.8 pg (28.0-33.3); Mean Corpuscular Volume 81.2 fL (83.0-100.0); Mean Platelet Volume 10.2 fL (9.4-12.4); Platelet Count 222 K/mcL (140-400); Red Blood Count 3.73 M/mcL (4.19-5.50); Red Cell Distribution Width 23.7 % (11.5-14.5); White Blood Count 9.5 K/mcL (4.3-11.1)
[2020-10-19 06:31] LABS: BUN/Creatinine Ratio 19 (6-26); Blood Urea Nitrogen 19 mg/dL (8-23); Calcium 8.7 mg/dL (8.6-10.3); Carbon Dioxide 21 mEq/L (23-29); Chloride 99 mEq/L (98-107); Glucose 96 mg/dL (70-105); Osmolality,Calculated 270 (280-300); Potassium 4.3 mEq/L (3.5-5.1); Sodium 129 mEq/L (136-145); eGFR For African Americans > 60 (> 60); eGFR For Non-African Americans > 60 (> 60)
[2020-10-19] MEDS ORDERED: 0.9 % Sodium Chloride 250 ML IVC SCH (07:30)
[2020-10-19] MEDS: Metoprolol XL (24 HR) Succ 50 MG TAB.ER.24H PO SCH (08:23)
[2020-10-19] MEDS: metroNIDAZOLE 500 MG TABLET PO SCH ×3 (08:23→19:58)
[2020-10-19] MEDS: Aspirin Enteric Coated 81 MG Tablet PO SCH (08:23)
[2020-10-19] MEDS: Gabapentin 400 MG CAPSULE PO SCH ×3 (08:23→19:58)
[2020-10-19] MEDS: Cefepime HCl 2,000 MG in 0.9 % Sodium Chloride Mini Bag 100 ML IVPB SCH ×2 (08:24→17:23)
[2020-10-19] MEDS: Apixaban 5 MG TABLET PO SCH ×2 (08:24→19:58)
[2020-10-19] MEDS: *HR* Amiodarone 200 MG TABLET PO SCH (08:24)
[2020-10-19] MEDS: Magnesium Oxide 400 MG TABLET PO SCH (08:24)
[2020-10-19] MEDS: Budesonide/Formoterol 80/4.5 1 PUFF INH IH SCH ×2 (10:42→19:49)
[2020-10-19 12:58] LABS: Anisocytosis 2+ (Not Present); Lymphocytes # 1.1 K/mcL (0.6-4.6); Monocytes # 0.2 K/mcL (0.0-1.3); Platelet Estimate Normal (Normal); Polychromasia 1+ (Not Present)
[2020-10-19 12:59] LABS: Acanthocytes 1+ (Not Present); Hypochromasia Present (Not Present); Ovalocytes 1+ (Not Present)
[2020-10-20] MEDS: *HR* OxyCODONE/APAP 5/325 TABLET PO PRN ×6 (00:06→21:06)
[2020-10-20] MEDS: Cefepime HCl 2,000 MG in 0.9 % Sodium Chloride Mini Bag 100 ML IVPB SCH ×2 (04:06→17:18)
[2020-10-20 06:14] LABS: Basophils % 0.3 %
[2020-10-20 06:16] LABS: Eosinophils # 0.1 K/mcL (0.0-0.6); Eosinophils % 0.9 %; Hematocrit 26.8 % (37.5-50.1); Hemoglobin 7.5 g/dL (12.9-16.9); Immature Granulocytes % 4.9 % (0-4); Lymphocytes # 1.4 K/mcL (0.6-4.6); Lymphocytes % 20.5 %; Mean Corpuscular Hemoglobin 22.8 pg (28.0-33.3); Mean Corpuscular Volume 81.5 fL (83.0-100.0); Mean Platelet Volume 10.6 fL (9.4-12.4); Monocytes # 0.6 K/mcL (0.0-1.3); Monocytes % 8.4 %; Platelet Count 217 K/mcL (140-400); Red Blood Count 3.29 M/mcL (4.19-5.50); Red Cell Distribution Width 23.7 % (11.5-14.5); White Blood Count 6.7 K/mcL (4.3-11.1)
[2020-10-20 06:18] LABS: Neutrophils # 4.4 K/mcL (1.6-8.9)
[2020-10-20 06:35] LABS: Platelet Estimate Normal (Normal)
[2020-10-20 06:36] LABS: Anisocytosis 2+ (Not Present); Hypochromasia Present (Not Present)
[2020-10-20 06:37] LABS: Polychromasia 1+ (Not Present)
[2020-10-20 06:41] LABS: BUN/Creatinine Ratio 19 (6-26); Blood Urea Nitrogen 18 mg/dL (8-23); Calcium 8.2 mg/dL (8.6-10.3); Carbon Dioxide 21 mEq/L (23-29); Chloride 103 mEq/L (98-107); Glucose 113 mg/dL (70-105); Osmolality,Calculated 277 (280-300); Potassium 4.2 mEq/L (3.5-5.1); Sodium 132 mEq/L (136-145); eGFR For African Americans > 60 (> 60); eGFR For Non-African Americans > 60 (> 60)
[2020-10-20] MEDS: Aspirin Enteric Coated 81 MG Tablet PO SCH (07:59)
[2020-10-20] MEDS: Gabapentin 400 MG CAPSULE PO SCH ×3 (08:00→20:30)
[2020-10-20] MEDS: Apixaban 5 MG TABLET PO SCH ×2 (08:01→20:30)
[2020-10-20] MEDS: Metoprolol XL (24 HR) Succ 50 MG TAB.ER.24H PO SCH (08:02)
[2020-10-20] MEDS: Magnesium Oxide 400 MG TABLET PO SCH (08:02)
[2020-10-20] MEDS: *HR* Amiodarone 200 MG TABLET PO SCH (08:02)
[2020-10-20] MEDS: metroNIDAZOLE 500 MG TABLET PO SCH ×3 (08:02→20:30)
[2020-10-20] MEDS ORDERED: Lidocaine -MPF 1% 5 ML AMPUL INFILT ONE (10:25)
[2020-10-20] MEDS: Budesonide/Formoterol 80/4.5 1 PUFF INH IH SCH ×2 (10:26→19:43)
[2020-10-20] MEDS: Ipratropium/Albuterol Neb 3 ML IH SCH ×4 (13:53→23:26)
[2020-10-20] MEDS ORDERED: Furosemide 20 MG/2 ML VIAL IVP ONE (16:20)
[2020-10-20 19:07] LABS: Red Cell Distribution Width 23.8 % (11.5-14.5)
[2020-10-20 19:08] LABS: Hematocrit 25.7 % (37.5-50.1); Hemoglobin 7.5 g/dL (12.9-16.9); Mean Corpuscular HGB Conc 29.2 g/dL (31.6-35.5); Mean Corpuscular Hemoglobin 23.7 pg (28.0-33.3); Mean Corpuscular Volume 81.3 fL (83.0-100.0); Platelet Count 211 K/mcL (140-400); Red Blood Count 3.16 M/mcL (4.19-5.50)
[2020-10-20] MEDS ORDERED: Furosemide 40 MG TABLET PO SCH (21:00)
[2020-10-21] MEDS: *HR* OxyCODONE/APAP 5/325 TABLET PO PRN ×4 (01:24→14:44)
[2020-10-21] MEDS: Ipratropium/Albuterol Neb 3 ML IH SCH ×3 (03:37→12:31)
[2020-10-21] MEDS: Cefepime HCl 2,000 MG in 0.9 % Sodium Chloride Mini Bag 100 ML IVPB SCH (04:28)
[2020-10-21 04:51] LABS: Hematocrit 27.3 % (37.5-50.1); Mean Corpuscular HGB Conc 29.3 g/dL (31.6-35.5); Mean Corpuscular Hemoglobin 23.7 pg (28.0-33.3); Mean Corpuscular Volume 80.8 fL (83.0-100.0); Mean Platelet Volume 9.7 fL (9.4-12.4); Platelet Count 220 K/mcL (140-400); Red Blood Count 3.38 M/mcL (4.19-5.50); Red Cell Distribution Width 24.2 % (11.5-14.5); White Blood Count 6.4 K/mcL (4.3-11.1)
[2020-10-21 05:10] LABS: BUN/Creatinine Ratio 24 (6-26); Blood Urea Nitrogen 28 mg/dL (8-23); Calcium 8.1 mg/dL (8.6-10.3); Carbon Dioxide 25 mEq/L (23-29); Chloride 104 mEq/L (98-107); Glucose 110 mg/dL (70-105); Osmolality,Calculated 286 (280-300); Potassium 4.4 mEq/L (3.5-5.1); Sodium 135 mEq/L (136-145); eGFR For African Americans > 60 (> 60); eGFR For Non-African Americans > 60 (> 60)
[2020-10-21] MEDS ORDERED: Pantoprazole 40 MG VIAL IVP SCH (06:00)
[2020-10-21] MEDS ORDERED: Vancomycin 1,000 MG VIAL ONE (07:48)
[2020-10-21] MEDS: Metoprolol XL (24 HR) Succ 50 MG TAB.ER.24H PO SCH (07:57)
[2020-10-21] MEDS: Aspirin Enteric Coated 81 MG Tablet PO SCH (07:57)
[2020-10-21] MEDS: Magnesium Oxide 400 MG TABLET PO SCH (07:58)
[2020-10-21] MEDS: *HR* Amiodarone 200 MG TABLET PO SCH (07:58)
[2020-10-21] MEDS: Gabapentin 400 MG CAPSULE PO SCH (08:00)
[2020-10-21] MEDS: Apixaban 5 MG TABLET PO SCH (08:00)
[2020-10-21] MEDS: metroNIDAZOLE 500 MG TABLET PO SCH (08:00)
[2020-10-21] MEDS: Acetaminophen 325 MG TABLET PO PRN (08:22)
[2020-10-21] MEDS: Budesonide/Formoterol 80/4.5 1 PUFF INH IH SCH (08:31)
[2020-10-21] MEDS ORDERED: Furosemide 40 MG TABLET PO SCH (09:00)
[2020-10-21 10:54] VITALS: BP 125/71
== END 2020-10-21 15:04 | DRG 616 ==
LOC: EMEROOARM 22:54 → 3BNU 22:54
PROVIDERS: ADMIT Internal Medicine; ATTEND Internal Medicine

== ENCOUNTER 2020-10-26 15:23 | Inpatient (IN) ==
[2020-10-26] MEDS ORDERED: Furosemide 40 MG/4 ML VIAL IVP ONE (16:18)
[2020-10-26] MEDS ORDERED: levoFLOXacin 750 MG TABLET PO ONE (16:18)
[2020-10-26] MEDS ORDERED: Ipratropium/Albuterol Neb 3 ML IH ONE (16:18)
[2020-10-26] MEDS ORDERED: methylPREDNISolone 125 MG/2 ML VIAL IVP ONE (16:18)
[2020-10-26 16:32] LABS: Eosinophils % 0.2 %
[2020-10-26 16:36] LABS: Basophils % 0.5 %; Hematocrit 32.5 % (37.5-50.1); Hemoglobin 9.6 g/dL (12.9-16.9); Immature Granulocytes % 1.6 % (0-4); Lymphocytes # 1.4 K/mcL (0.6-4.6); Lymphocytes % 21.4 %; Mean Corpuscular HGB Conc 29.5 g/dL (31.6-35.5); Mean Corpuscular Hemoglobin 23.6 pg (28.0-33.3); Mean Platelet Volume 10.7 fL (9.4-12.4); Monocytes # 0.5 K/mcL (0.0-1.3); Monocytes % 8.1 %; Neutrophils # 4.4 K/mcL (1.6-8.9); Platelet Count 236 K/mcL (140-400); Red Blood Count 4.06 M/mcL (4.19-5.50); Red Cell Distribution Width 25.5 % (11.5-14.5); Segmented Neutrophils % 68.2 %; White Blood Count 6.4 K/mcL (4.3-11.1)
[2020-10-26] MEDS ORDERED: Isovue-370 500 ML BOTTLE IVP ONE (16:55)
[2020-10-26 16:56] LABS: Anisocytosis 1+ (Not Present); Hypochromasia Present (Not Present); Microcytosis Present (Not Present); Ovalocytes 1+ (Not Present); Platelet Estimate Normal (Normal); Poikilocytosis 1+ (Not Present)
[2020-10-26 16:57] LABS: Troponin I 0.03 ng/mL (< 0.04)
[2020-10-26 17:06] LABS: BUN/Creatinine Ratio 17 (6-26); Blood Urea Nitrogen 18 mg/dL (8-23); Carbon Dioxide 27 mEq/L (23-29); Chloride 94 mEq/L (98-107); Glucose 93 mg/dL (70-105); Osmolality,Calculated 276 (280-300); Potassium 3.8 mEq/L (3.5-5.1); Sodium 132 mEq/L (136-145); eGFR For African Americans > 60 (> 60); eGFR For Non-African Americans > 60 (> 60)
[2020-10-26] MEDS ORDERED: 0.9 % Sodium Chloride 500 ML IVC ONE (17:11)
[2020-10-26] MEDS ORDERED: Naloxone 0.4 MG/ML INJ IVP PRN (20:39)
[2020-10-26] MEDS ORDERED: Ondansetron 4 MG/2 ML VIAL IVP PRN (20:39)
[2020-10-26] MEDS: metroNIDAZOLE 500 MG TABLET PO SCH (22:31)
[2020-10-26] MEDS: Furosemide 40 MG/4 ML VIAL IVP SCH (22:32)
[2020-10-27] MEDS: Budesonide/Formoterol 80/4.5 1 PUFF INH IH SCH ×2 (03:11→08:05)
[2020-10-27 06:26] LABS: Basophils % 0.3 %; Red Cell Distribution Width 25.2 % (11.5-14.5)
[2020-10-27 06:27] LABS: Hematocrit 35.1 % (37.5-50.1); Hemoglobin 10.2 g/dL (12.9-16.9); Immature Granulocytes % 2.2 % (0-4); Lymphocytes # 1.2 K/mcL (0.6-4.6); Lymphocytes % 36.4 %; Mean Corpuscular HGB Conc 29.1 g/dL (31.6-35.5); Mean Corpuscular Hemoglobin 23.5 pg (28.0-33.3); Mean Corpuscular Volume 80.9 fL (83.0-100.0); Mean Platelet Volume 10.5 fL (9.4-12.4); Monocytes # 0.1 K/mcL (0.0-1.3); Monocytes % 3.8 %; Neutrophils # 1.8 K/mcL (1.6-8.9); Platelet Count 244 K/mcL (140-400); Red Blood Count 4.34 M/mcL (4.19-5.50); Segmented Neutrophils % 57.3 %; White Blood Count 3.2 K/mcL (4.3-11.1)
[2020-10-27 06:36] LABS: INR 1.9; Prothrombin Time 21.2 Seconds (9.4-12.1)
[2020-10-27 06:52] LABS: Alanine Aminotransferase 9 Units/L (7-52); Albumin 3.4 g/dL (3.5-5.7); Albumin/Globulin Ratio 1.2 (1.1-2.2); Alkaline Phosphatase 268 Units/L (34-104); Aspartate Amino Transferase 27 Units/L (13-39); BUN/Creatinine Ratio 19 (6-26); Bilirubin,Total 0.5 mg/dL (0.3-1.0); Blood Urea Nitrogen 20 mg/dL (8-23); Calcium 8.2 mg/dL (8.6-10.3); Carbon Dioxide 28 mEq/L (23-29); Chloride 94 mEq/L (98-107); Globulin 2.8 g/dL (2.4-3.5); Glucose 189 mg/dL (70-105); Lactate Dehydrogenase 282 Units/L (140-271); Magnesium 1.9 mg/dL (1.6-2.6); Osmolality,Calculated 286 (280-300); Potassium 3.5 mEq/L (3.5-5.1); Sodium 134 mEq/L (136-145); Total Protein 6.2 g/dL (6.4-8.9); eGFR For African Americans > 60 (> 60); eGFR For Non-African Americans > 60 (> 60)
[2020-10-27 07:00] LABS: Anisocytosis 1+ (Not Present); Macrocytosis Present (Not Present); Ovalocytes 1+ (Not Present); Platelet Estimate Normal (Normal); Poikilocytosis 1+ (Not Present)
[2020-10-27 07:05] LABS: Ferritin 145 ng/mL (20-250)
[2020-10-27 08:00] LABS: C-Reactive Protein 130 mg/L (Less than 10)
[2020-10-27] MEDS: Apixaban 5 MG TABLET PO SCH ×2 (09:26→20:07)
[2020-10-27] MEDS: *HR* Amiodarone 200 MG TABLET PO SCH (09:26)
[2020-10-27] MEDS: Furosemide 40 MG/4 ML VIAL IVP SCH ×2 (09:27→20:06)
[2020-10-27] MEDS: metroNIDAZOLE 500 MG TABLET PO SCH ×3 (09:27→20:07)
[2020-10-27] MEDS: Gabapentin 400 MG CAPSULE PO SCH ×3 (09:27→20:07)
[2020-10-27] MEDS: Aspirin Enteric Coated 81 MG Tablet PO SCH (09:27)
[2020-10-27] MEDS: Dexamethasone Sodium Phos/PF 10 MG/ML VIAL IVP SCH (09:29)
[2020-10-27 10:31] LABS: Vancomycin,Trough 13 mcg/mL (5-10)
[2020-10-27] MEDS: Cefepime HCl 2,000 MG in Water for inj. (sterile) 20 ML IVP SCH ×2 (11:00→18:22)
[2020-10-27] MEDS: Vancomycin 1,250 MG/262.5 ML IV.SOLN IVPB SCH (14:28)
[2020-10-27] MEDS ORDERED: Remdesivir 200 MG in 0.9 % Sodium Chloride 100 ML IVPB ONE (15:00)
[2020-10-27] MEDS: Metoprolol XL (24 HR) Succ 25 MG TAB.ER.24H PO SCH (16:07)
[2020-10-27] MEDS: Ipratropium 1 PUFF INHALER IH SCH ×3 (16:56→23:31)
[2020-10-28] MEDS: Cefepime HCl 2,000 MG in Water for inj. (sterile) 20 ML IVP SCH ×3 (02:18→17:12)
[2020-10-28] MEDS: Ipratropium 1 PUFF INHALER IH SCH ×6 (03:42→23:59)
[2020-10-28] MEDS: Vancomycin 1,250 MG/262.5 ML IV.SOLN IVPB SCH ×2 (04:30→13:07)
[2020-10-28] MEDS: Aspirin Enteric Coated 81 MG Tablet PO SCH (08:54)
[2020-10-28] MEDS: Metoprolol XL (24 HR) Succ 25 MG TAB.ER.24H PO SCH (08:54)
[2020-10-28] MEDS: Gabapentin 400 MG CAPSULE PO SCH ×3 (08:54→20:43)
[2020-10-28] MEDS: metroNIDAZOLE 500 MG TABLET PO SCH ×3 (08:55→20:44)
[2020-10-28] MEDS: *HR* Amiodarone 200 MG TABLET PO SCH (08:55)
[2020-10-28] MEDS: Apixaban 5 MG TABLET PO SCH ×2 (08:55→20:44)
[2020-10-28] MEDS: Furosemide 40 MG/4 ML VIAL IVP SCH ×2 (08:56→20:44)
[2020-10-28] MEDS: Dexamethasone Sodium Phos/PF 10 MG/ML VIAL IVP SCH (08:56)
[2020-10-28] MEDS: Remdesivir 100 MG in 0.9 % Sodium Chloride 100 ML IVPB SCH (15:26)
[2020-10-28 16:30] LABS: Basophils % 0.1 %; Hematocrit 34.6 % (37.5-50.1); Hemoglobin 9.8 g/dL (12.9-16.9); Immature Granulocytes % 0.8 % (0-4); Lymphocytes # 1.7 K/mcL (0.6-4.6); Lymphocytes % 8.5 %; Mean Corpuscular HGB Conc 28.3 g/dL (31.6-35.5); Mean Corpuscular Hemoglobin 22.9 pg (28.0-33.3); Mean Corpuscular Volume 80.8 fL (83.0-100.0); Mean Platelet Volume 10.8 fL (9.4-12.4); Monocytes # 0.6 K/mcL (0.0-1.3); Monocytes % 2.8 %; Neutrophils # 17.3 K/mcL (1.6-8.9); Platelet Count 378 K/mcL (140-400); Red Blood Count 4.28 M/mcL (4.19-5.50); Red Cell Distribution Width 25.4 % (11.5-14.5); Segmented Neutrophils % 87.8 %
[2020-10-28 16:31] LABS: White Blood Count 19.7 K/mcL (4.3-11.1)
[2020-10-28 16:45] LABS: Albumin 3.5 g/dL (3.5-5.7); Albumin/Globulin Ratio 1.2 (1.1-2.2); Bilirubin,Direct 0.2 mg/dL (0.0-0.2); Bilirubin,Indirect 0.3 mg/dL (0.0-1.0); Bilirubin,Total 0.5 mg/dL (0.3-1.0); Globulin 2.9 g/dL (2.4-3.5); Total Protein 6.4 g/dL (6.4-8.9)
[2020-10-28] MEDS ORDERED: Dexamethasone Sodium Phos/PF 10 MG/ML VIAL IVP ONE (16:45)
[2020-10-28 16:49] LABS: BUN/Creatinine Ratio 33 (6-26); Blood Urea Nitrogen 33 mg/dL (8-23); Calcium 8.7 mg/dL (8.6-10.3); Carbon Dioxide 33 mEq/L (23-29); Chloride 94 mEq/L (98-107); Glucose 115 mg/dL (70-105); Osmolality,Calculated 286 (280-300); Potassium 4.4 mEq/L (3.5-5.1); Sodium 134 mEq/L (136-145); eGFR For African Americans > 60 (> 60); eGFR For Non-African Americans > 60 (> 60)
[2020-10-28 17:45] LABS: Anisocytosis 2+ (Not Present); Hypochromasia Present (Not Present); Platelet Estimate Normal (Normal)
[2020-10-29] MEDS: Vancomycin 1,250 MG/262.5 ML IV.SOLN IVPB SCH (01:47)
[2020-10-29] MEDS: Cefepime HCl 2,000 MG in Water for inj. (sterile) 20 ML IVP SCH ×3 (01:47→17:23)
[2020-10-29 02:20] LABS: Basophils % 0.1 %; Hemoglobin 8.6 g/dL (12.9-16.9); Lymphocytes % 12.6 %; Mean Platelet Volume 10.7 fL (9.4-12.4)
[2020-10-29 02:21] LABS: Hematocrit 29.9 % (37.5-50.1); Immature Granulocytes % 0.7 % (0-4); Lymphocytes # 1.3 K/mcL (0.6-4.6); Mean Corpuscular HGB Conc 28.8 g/dL (31.6-35.5); Mean Corpuscular Hemoglobin 23.3 pg (28.0-33.3); Monocytes # 0.3 K/mcL (0.0-1.3); Monocytes % 3.2 %; Platelet Count 273 K/mcL (140-400); Red Blood Count 3.69 M/mcL (4.19-5.50); Red Cell Distribution Width 25.3 % (11.5-14.5); Segmented Neutrophils % 83.4 %; White Blood Count 9.9 K/mcL (4.3-11.1)
[2020-10-29 02:27] LABS: Neutrophils # 8.3 K/mcL (1.6-8.9)
[2020-10-29 02:33] LABS: Vancomycin,Trough 18 mcg/mL (5-10)
[2020-10-29 02:40] LABS: Anisocytosis 1+ (Not Present); Hypochromasia Present (Not Present); Poikilocytosis 1+ (Not Present)
[2020-10-29 02:41] LABS: Platelet Estimate Normal (Normal); Toxic Granulation Present (Not Present)
[2020-10-29] MEDS: Ipratropium 1 PUFF INHALER IH SCH ×5 (03:57→20:53)
[2020-10-29 07:34] LABS: BUN/Creatinine Ratio 36 (6-26); Blood Urea Nitrogen 38 mg/dL (8-23); Calcium 8.3 mg/dL (8.6-10.3); Carbon Dioxide 33 mEq/L (23-29); Chloride 94 mEq/L (98-107); Glucose 124 mg/dL (70-105); Osmolality,Calculated 292 (280-300); Potassium 3.9 mEq/L (3.5-5.1); Sodium 136 mEq/L (136-145); eGFR For African Americans > 60 (> 60); eGFR For Non-African Americans > 60 (> 60)
[2020-10-29] MEDS: metroNIDAZOLE 500 MG TABLET PO SCH ×3 (08:35→22:09)
[2020-10-29] MEDS: Gabapentin 400 MG CAPSULE PO SCH ×3 (08:35→22:09)
[2020-10-29] MEDS: Apixaban 5 MG TABLET PO SCH ×2 (08:35→22:09)
[2020-10-29] MEDS: *HR* Amiodarone 200 MG TABLET PO SCH (08:35)
[2020-10-29] MEDS: Furosemide 40 MG/4 ML VIAL IVP SCH ×2 (08:36→22:10)
[2020-10-29] MEDS: Metoprolol XL (24 HR) Succ 50 MG TAB.ER.24H PO SCH (08:36)
[2020-10-29] MEDS: Dexamethasone Sodium Phos/PF 10 MG/ML VIAL IVP SCH (08:36)
[2020-10-29] MEDS: Aspirin Enteric Coated 81 MG Tablet PO SCH (08:36)
[2020-10-29] MEDS ORDERED: dexAMETHasone 4 MG TABLET PO SCH (09:00)
[2020-10-29] MEDS: Remdesivir 100 MG in 0.9 % Sodium Chloride 100 ML IVPB SCH (15:04)
[2020-10-29 15:45] LABS: Alanine Aminotransferase 8 Units/L (7-52); Albumin 2.9 g/dL (3.5-5.7); Albumin/Globulin Ratio 1.2 (1.1-2.2); Alkaline Phosphatase 266 Units/L (34-104); Aspartate Amino Transferase 31 Units/L (13-39); Bilirubin,Direct 0.1 mg/dL (0.0-0.2); Bilirubin,Indirect 0.3 mg/dL (0.0-1.0); Bilirubin,Total 0.4 mg/dL (0.3-1.0); Globulin 2.5 g/dL (2.4-3.5); Total Protein 5.4 g/dL (6.4-8.9)
[2020-10-30] MEDS: Ipratropium 1 PUFF INHALER IH SCH ×6 (00:10→20:29)
[2020-10-30] MEDS: Cefepime HCl 2,000 MG in Water for inj. (sterile) 20 ML IVP SCH ×3 (02:09→16:14)
[2020-10-30] MEDS: Furosemide 40 MG/4 ML VIAL IVP SCH ×2 (08:05→21:14)
[2020-10-30] MEDS: Dexamethasone Sodium Phos/PF 10 MG/ML VIAL IVP SCH (08:05)
[2020-10-30] MEDS: Metoprolol XL (24 HR) Succ 50 MG TAB.ER.24H PO SCH (08:06)
[2020-10-30] MEDS: Apixaban 5 MG TABLET PO SCH ×2 (08:06→21:14)
[2020-10-30] MEDS: metroNIDAZOLE 500 MG TABLET PO SCH ×3 (08:06→21:14)
[2020-10-30] MEDS: Aspirin Enteric Coated 81 MG Tablet PO SCH (08:06)
[2020-10-30] MEDS: Gabapentin 400 MG CAPSULE PO SCH ×3 (08:06→21:15)
[2020-10-30] MEDS: *HR* Amiodarone 200 MG TABLET PO SCH (08:07)
[2020-10-30 13:40] LABS: Basophils % 0.1 %; Hematocrit 34.4 % (37.5-50.1); Immature Granulocytes % 0.6 % (0-4); Lymphocytes # 1.6 K/mcL (0.6-4.6); Lymphocytes % 8.8 %; Mean Corpuscular HGB Conc 29.7 g/dL (31.6-35.5); Mean Corpuscular Hemoglobin 23.4 pg (28.0-33.3); Mean Corpuscular Volume 78.9 fL (83.0-100.0); Mean Platelet Volume 10.5 fL (9.4-12.4); Monocytes # 0.4 K/mcL (0.0-1.3); Monocytes % 2.1 %; Platelet Count 408 K/mcL (140-400); Red Blood Count 4.36 M/mcL (4.19-5.50); Red Cell Distribution Width 25.3 % (11.5-14.5); Segmented Neutrophils % 88.4 %
[2020-10-30 13:44] LABS: Hemoglobin 10.2 g/dL (12.9-16.9); Neutrophils # 16.4 K/mcL (1.6-8.9); White Blood Count 18.6 K/mcL (4.3-11.1)
[2020-10-30 13:46] LABS: Anisocytosis 2+ (Not Present); Platelet Estimate Normal (Normal)
[2020-10-30 13:57] LABS: Alanine Aminotransferase 10 Units/L (7-52); Albumin 3.3 g/dL (3.5-5.7); Albumin/Globulin Ratio 1.2 (1.1-2.2); Alkaline Phosphatase 379 Units/L (34-104); Aspartate Amino Transferase 30 Units/L (13-39); BUN/Creatinine Ratio 44 (6-26); Bilirubin,Direct 0.3 mg/dL (0.0-0.2); Bilirubin,Indirect 0.3 mg/dL (0.0-1.0); Bilirubin,Total 0.6 mg/dL (0.3-1.0); Blood Urea Nitrogen 47 mg/dL (8-23); Calcium 8.6 mg/dL (8.6-10.3); Carbon Dioxide 32 mEq/L (23-29); Chloride 93 mEq/L (98-107); Globulin 2.8 g/dL (2.4-3.5); Glucose 143 mg/dL (70-105); Osmolality,Calculated 293 (280-300); Potassium 3.8 mEq/L (3.5-5.1); Sodium 134 mEq/L (136-145); Total Protein 6.1 g/dL (6.4-8.9); eGFR For African Americans > 60 (> 60); eGFR For Non-African Americans > 60 (> 60)
[2020-10-30] MEDS: Remdesivir 100 MG in 0.9 % Sodium Chloride 100 ML IVPB SCH (16:14)
[2020-10-31] MEDS: Ipratropium 1 PUFF INHALER IH SCH ×6 (00:22→20:37)
[2020-10-31] MEDS ORDERED: Water for inj. (sterile) 20 ML ONE (02:19)
[2020-10-31] MEDS: Cefepime HCl 2,000 MG in Water for inj. (sterile) 20 ML IVP SCH ×3 (02:25→16:56)
[2020-10-31 07:54] LABS: Basophils % 0.1 %; Hematocrit 31.5 % (37.5-50.1); Hemoglobin 9.3 g/dL (12.9-16.9); Immature Granulocytes % 0.7 % (0-4); Lymphocytes # 1.3 K/mcL (0.6-4.6); Lymphocytes % 12.4 %; Mean Corpuscular HGB Conc 29.5 g/dL (31.6-35.5); Mean Corpuscular Hemoglobin 23.3 pg (28.0-33.3); Mean Corpuscular Volume 78.9 fL (83.0-100.0); Mean Platelet Volume 10.3 fL (9.4-12.4); Monocytes # 0.6 K/mcL (0.0-1.3); Monocytes % 5.6 %; Neutrophils # 8.7 K/mcL (1.6-8.9); Platelet Count 319 K/mcL (140-400); Red Blood Count 3.99 M/mcL (4.19-5.50); Segmented Neutrophils % 81.2 %; White Blood Count 10.7 K/mcL (4.3-11.1)
[2020-10-31 08:15] LABS: Albumin/Globulin Ratio 1.2 (1.1-2.2); Bilirubin,Direct 0.2 mg/dL (0.0-0.2); Bilirubin,Indirect 0.4 mg/dL (0.0-1.0); Bilirubin,Total 0.6 mg/dL (0.3-1.0); Globulin 2.5 g/dL (2.4-3.5); Total Protein 5.5 g/dL (6.4-8.9)
[2020-10-31 08:16] LABS: BUN/Creatinine Ratio 44 (6-26); Blood Urea Nitrogen 47 mg/dL (8-23); Calcium 8.5 mg/dL (8.6-10.3); Carbon Dioxide 34 mEq/L (23-29); Chloride 94 mEq/L (98-107); Glucose 106 mg/dL (70-105); Osmolality,Calculated 297 (280-300); Potassium 3.5 mEq/L (3.5-5.1); Sodium 137 mEq/L (136-145); eGFR For African Americans > 60 (> 60); eGFR For Non-African Americans > 60 (> 60)
[2020-10-31 08:30] LABS: Anisocytosis 2+ (Not Present); Platelet Estimate Normal (Normal); Poikilocytosis 1+ (Not Present)
[2020-10-31 08:31] LABS: Hypochromasia Present (Not Present); Ovalocytes 1+ (Not Present); Target Cells 1+ (Not Present)
[2020-10-31] MEDS: Apixaban 5 MG TABLET PO SCH ×2 (09:23→20:43)
[2020-10-31] MEDS: Aspirin Enteric Coated 81 MG Tablet PO SCH (09:23)
[2020-10-31] MEDS: Metoprolol XL (24 HR) Succ 50 MG TAB.ER.24H PO SCH (09:24)
[2020-10-31] MEDS: Gabapentin 400 MG CAPSULE PO SCH ×3 (09:24→20:42)
[2020-10-31] MEDS: metroNIDAZOLE 500 MG TABLET PO SCH ×3 (09:24→20:44)
[2020-10-31] MEDS: Furosemide 40 MG/4 ML VIAL IVP SCH ×2 (09:25→20:44)
[2020-10-31] MEDS: Dexamethasone Sodium Phos/PF 10 MG/ML VIAL IVP SCH (09:26)
[2020-10-31] MEDS: *HR* Amiodarone 200 MG TABLET PO SCH (09:28)
[2020-10-31] MEDS: Remdesivir 100 MG in 0.9 % Sodium Chloride 100 ML IVPB SCH (15:21)
[2020-11-01] MEDS: Ipratropium 1 PUFF INHALER IH SCH ×7 (00:25→23:39)
[2020-11-01] MEDS: Cefepime HCl 2,000 MG in Water for inj. (sterile) 20 ML IVP SCH ×3 (01:57→18:09)
[2020-11-01] MEDS: Aspirin Enteric Coated 81 MG Tablet PO SCH (09:31)
[2020-11-01] MEDS: Apixaban 5 MG TABLET PO SCH ×2 (09:31→20:10)
[2020-11-01] MEDS: Furosemide 40 MG/4 ML VIAL IVP SCH (09:31)
[2020-11-01] MEDS: *HR* Amiodarone 200 MG TABLET PO SCH (09:31)
[2020-11-01] MEDS: Gabapentin 400 MG CAPSULE PO SCH ×3 (09:31→20:10)
[2020-11-01] MEDS: Metoprolol XL (24 HR) Succ 50 MG TAB.ER.24H PO SCH (09:33)
[2020-11-01] MEDS: Dexamethasone Sodium Phos/PF 10 MG/ML VIAL IVP SCH (09:33)
[2020-11-01] MEDS: metroNIDAZOLE 500 MG TABLET PO SCH ×3 (09:33→20:10)
[2020-11-01 09:56] LABS: Hemoglobin 10.3 g/dL (12.9-16.9); Mean Platelet Volume 10.3 fL (9.4-12.4)
[2020-11-01 09:57] LABS: Hematocrit 36.3 % (37.5-50.1); Mean Corpuscular HGB Conc 28.4 g/dL (31.6-35.5); Mean Corpuscular Hemoglobin 22.6 pg (28.0-33.3); Mean Corpuscular Volume 79.6 fL (83.0-100.0); Platelet Count 406 K/mcL (140-400); Red Blood Count 4.56 M/mcL (4.19-5.50); Red Cell Distribution Width 25.3 % (11.5-14.5); White Blood Count 11.7 K/mcL (4.3-11.1)
[2020-11-01 10:02] LABS: BUN/Creatinine Ratio 39 (6-26); Blood Urea Nitrogen 52 mg/dL (8-23); Carbon Dioxide 34 mEq/L (23-29); Chloride 93 mEq/L (98-107); Glucose 228 mg/dL (70-105); Osmolality,Calculated 307 (280-300); Potassium 3.3 mEq/L (3.5-5.1); Sodium 138 mEq/L (136-145); eGFR For African Americans > 60 (> 60); eGFR For Non-African Americans 53 (> 60)
[2020-11-02] MEDS: Cefepime HCl 2,000 MG in Water for inj. (sterile) 20 ML IVP SCH ×3 (01:41→17:47)
[2020-11-02 02:21] LABS: Hematocrit 32.3 % (37.5-50.1); Hemoglobin 9.3 g/dL (12.9-16.9); Mean Corpuscular HGB Conc 28.8 g/dL (31.6-35.5); Mean Corpuscular Hemoglobin 23.1 pg (28.0-33.3); Mean Corpuscular Volume 80.1 fL (83.0-100.0); Mean Platelet Volume 10.5 fL (9.4-12.4); Platelet Count 350 K/mcL (140-400); Red Blood Count 4.03 M/mcL (4.19-5.50); Red Cell Distribution Width 25.5 % (11.5-14.5); White Blood Count 8.6 K/mcL (4.3-11.1)
[2020-11-02 02:40] LABS: BUN/Creatinine Ratio 50 (6-26); Blood Urea Nitrogen 52 mg/dL (8-23); Calcium 8.5 mg/dL (8.6-10.3); Carbon Dioxide 31 mEq/L (23-29); Chloride 100 mEq/L (98-107); Glucose 191 mg/dL (70-105); Osmolality,Calculated 307 (280-300); Potassium 3.9 mEq/L (3.5-5.1); Sodium 139 mEq/L (136-145); eGFR For African Americans > 60 (> 60); eGFR For Non-African Americans > 60 (> 60)
[2020-11-02] MEDS: Ipratropium 1 PUFF INHALER IH SCH ×6 (03:53→23:25)
[2020-11-02] MEDS: Apixaban 5 MG TABLET PO SCH ×2 (09:53→21:43)
[2020-11-02] MEDS: metroNIDAZOLE 500 MG TABLET PO SCH ×3 (09:53→21:41)
[2020-11-02] MEDS: Gabapentin 400 MG CAPSULE PO SCH ×3 (09:53→21:42)
[2020-11-02] MEDS: Metoprolol XL (24 HR) Succ 50 MG TAB.ER.24H PO SCH (09:53)
[2020-11-02] MEDS: Furosemide 40 MG TABLET PO SCH ×2 (09:54→17:47)
[2020-11-02] MEDS: Aspirin Enteric Coated 81 MG Tablet PO SCH (09:54)
[2020-11-02] MEDS: Dexamethasone Sodium Phos/PF 10 MG/ML VIAL IVP SCH (09:54)
[2020-11-02] MEDS: *HR* Amiodarone 200 MG TABLET PO SCH (09:54)
[2020-11-03 01:52] LABS: Hematocrit 30.3 % (37.5-50.1); Hemoglobin 8.8 g/dL (12.9-16.9); Mean Corpuscular Hemoglobin 23.1 pg (28.0-33.3); Mean Corpuscular Volume 79.5 fL (83.0-100.0); Mean Platelet Volume 10.5 fL (9.4-12.4); Platelet Count 313 K/mcL (140-400); Red Blood Count 3.81 M/mcL (4.19-5.50); Red Cell Distribution Width 25.1 % (11.5-14.5); White Blood Count 9.5 K/mcL (4.3-11.1)
[2020-11-03 02:08] LABS: BUN/Creatinine Ratio 40 (6-26); Blood Urea Nitrogen 42 mg/dL (8-23); Calcium 8.1 mg/dL (8.6-10.3); Carbon Dioxide 35 mEq/L (23-29); Chloride 97 mEq/L (98-107); Glucose 123 mg/dL (70-105); Osmolality,Calculated 298 (280-300); Potassium 3.6 mEq/L (3.5-5.1); Sodium 138 mEq/L (136-145); eGFR For African Americans > 60 (> 60); eGFR For Non-African Americans > 60 (> 60)
[2020-11-03] MEDS: Cefepime HCl 2,000 MG in Water for inj. (sterile) 20 ML IVP SCH ×3 (02:47→17:48)
[2020-11-03] MEDS: Ipratropium 1 PUFF INHALER IH SCH ×6 (04:03→23:45)
[2020-11-03] MEDS: Aspirin Enteric Coated 81 MG Tablet PO SCH (08:58)
[2020-11-03] MEDS: Gabapentin 400 MG CAPSULE PO SCH ×3 (08:58→21:31)
[2020-11-03] MEDS: Apixaban 5 MG TABLET PO SCH ×2 (08:58→21:31)
[2020-11-03] MEDS: Furosemide 40 MG TABLET PO SCH ×2 (08:59→16:10)
[2020-11-03] MEDS: Dexamethasone Sodium Phos/PF 10 MG/ML VIAL IVP SCH (08:59)
[2020-11-03] MEDS: *HR* Amiodarone 200 MG TABLET PO SCH (08:59)
[2020-11-03] MEDS: Metoprolol XL (24 HR) Succ 50 MG TAB.ER.24H PO SCH (08:59)
[2020-11-03] MEDS: metroNIDAZOLE 500 MG TABLET PO SCH ×3 (08:59→21:32)
[2020-11-04] MEDS: Cefepime HCl 2,000 MG in Water for inj. (sterile) 20 ML IVP SCH ×3 (01:43→17:15)
[2020-11-04 02:36] LABS: Fibrinogen 196 mg/dL (169-393)
[2020-11-04 02:38] LABS: Alanine Aminotransferase 15 Units/L (7-52); Albumin/Globulin Ratio 1.1 (1.1-2.2); Alkaline Phosphatase 429 Units/L (34-104); Aspartate Amino Transferase 29 Units/L (13-39); BUN/Creatinine Ratio 38 (6-26); Bilirubin,Total 0.6 mg/dL (0.3-1.0); Blood Urea Nitrogen 47 mg/dL (8-23); Calcium 8.5 mg/dL (8.6-10.3); Carbon Dioxide 36 mEq/L (23-29); Chloride 97 mEq/L (98-107); Globulin 2.7 g/dL (2.4-3.5); Glucose 176 mg/dL (70-105); Lactate Dehydrogenase 275 Units/L (140-271); Magnesium 1.7 mg/dL (1.6-2.6); Osmolality,Calculated 305 (280-300); Phosphorous 3.1 mg/dL (2.7-4.5); Potassium 3.6 mEq/L (3.5-5.1); Sodium 139 mEq/L (136-145); Total Protein 5.7 g/dL (6.4-8.9); eGFR For African Americans > 60 (> 60); eGFR For Non-African Americans 58 (> 60)
[2020-11-04 02:50] LABS: D-Dimer 10593 ng/mLFEU (0-500)
[2020-11-04 02:55] LABS: Ferritin 97 ng/mL (20-250)
[2020-11-04] MEDS: Ipratropium 1 PUFF INHALER IH SCH ×6 (04:41→23:33)
[2020-11-04] MEDS: metroNIDAZOLE 500 MG TABLET PO SCH ×3 (08:57→20:41)
[2020-11-04] MEDS: Gabapentin 400 MG CAPSULE PO SCH ×3 (08:58→20:40)
[2020-11-04] MEDS: *HR* Amiodarone 200 MG TABLET PO SCH (08:58)
[2020-11-04] MEDS: Aspirin Enteric Coated 81 MG Tablet PO SCH (08:58)
[2020-11-04] MEDS: Metoprolol XL (24 HR) Succ 50 MG TAB.ER.24H PO SCH (08:58)
[2020-11-04] MEDS: Apixaban 5 MG TABLET PO SCH ×2 (08:58→20:41)
[2020-11-04] MEDS: Furosemide 40 MG TABLET PO SCH (08:59)
[2020-11-04] MEDS: Dexamethasone Sodium Phos/PF 10 MG/ML VIAL IVP SCH (09:00)
[2020-11-05] MEDS: Cefepime HCl 2,000 MG in Water for inj. (sterile) 20 ML IVP SCH ×3 (01:28→18:47)
[2020-11-05] MEDS: Ipratropium 1 PUFF INHALER IH SCH ×6 (03:55→23:41)
[2020-11-05 04:44] LABS: Nucleated Red Blood Cells 0.1 /100 WBC (0); Red Cell Distribution Width 25.8 % (11.5-14.5)
[2020-11-05 04:46] LABS: Basophils # 0.1 K/mcL (0.0-0.2); Basophils % 0.3 %; Hematocrit 34.1 % (37.5-50.1); Hemoglobin 9.8 g/dL (12.9-16.9); Immature Granulocytes % 2.7 % (0-4); Immature Platelets 6.7 % (1.1-6.1); Lymphocytes # 1.3 K/mcL (0.6-4.6); Lymphocytes % 7.2 %; Mean Corpuscular HGB Conc 28.7 g/dL (31.6-35.5); Mean Corpuscular Hemoglobin 22.6 pg (28.0-33.3); Mean Corpuscular Volume 78.8 fL (83.0-100.0); Mean Platelet Volume 10.5 fL (9.4-12.4); Monocytes # 1.4 K/mcL (0.0-1.3); Neutrophils # 14.2 K/mcL (1.6-8.9); Platelet Count 288 K/mcL (140-400); Red Blood Count 4.33 M/mcL (4.19-5.50); Segmented Neutrophils % 81.8 %; White Blood Count 17.3 K/mcL (4.3-11.1)
[2020-11-05 05:08] LABS: BUN/Creatinine Ratio 43 (6-26); Blood Urea Nitrogen 49 mg/dL (8-23); Calcium 8.7 mg/dL (8.6-10.3); Carbon Dioxide 33 mEq/L (23-29); Chloride 97 mEq/L (98-107); Glucose 233 mg/dL (70-105); Magnesium 1.9 mg/dL (1.6-2.6); Osmolality,Calculated 304 (280-300); Potassium 3.9 mEq/L (3.5-5.1); Sodium 137 mEq/L (136-145); eGFR For African Americans > 60 (> 60); eGFR For Non-African Americans > 60 (> 60)
[2020-11-05 05:22] LABS: Anisocytosis 2+ (Not Present); Hypochromasia Present (Not Present); Macrocytosis Present (Not Present)
[2020-11-05 05:23] LABS: Platelet Estimate Normal (Normal)
[2020-11-05] MEDS ORDERED: D5% in Water 1,000 ML IVC PRN (08:19)
[2020-11-05] MEDS ORDERED: Dextrose Gel 15 GM/37.5 ML TUBE PO PRN ×2 (08:19)
[2020-11-05] MEDS: metroNIDAZOLE 500 MG TABLET PO SCH ×3 (09:26→20:46)
[2020-11-05] MEDS: Aspirin Enteric Coated 81 MG Tablet PO SCH (09:26)
[2020-11-05] MEDS: Gabapentin 400 MG CAPSULE PO SCH ×3 (09:26→20:47)
[2020-11-05] MEDS: Dexamethasone Sodium Phos/PF 10 MG/ML VIAL IVP SCH (09:27)
[2020-11-05] MEDS: Apixaban 5 MG TABLET PO SCH ×2 (09:27→20:46)
[2020-11-05] MEDS: Furosemide 40 MG TABLET PO SCH (09:27)
[2020-11-05] MEDS: *HR* Amiodarone 200 MG TABLET PO SCH (09:27)
[2020-11-05] MEDS: Metoprolol XL (24 HR) Succ 50 MG TAB.ER.24H PO SCH (09:27)
[2020-11-05] MEDS: Insulin DETEMIR 100 UNIT/ML X5UNITS SUBQ SCH ×3 (11:11→22:45)
[2020-11-05] MEDS: Insulin LISPRO 300 UNITS/3 ML VIAL SUBQ SCH ×2 (13:04→19:02)
[2020-11-06] MEDS: Cefepime HCl 2,000 MG in Water for inj. (sterile) 20 ML IVP SCH ×3 (01:20→18:10)
[2020-11-06] MEDS: Ipratropium 1 PUFF INHALER IH SCH ×6 (04:24→23:59)
[2020-11-06 05:35] LABS: Basophils % 0.4 %; Immature Platelets 7.4 % (1.1-6.1); Mean Corpuscular HGB Conc 28.8 g/dL (31.6-35.5); Red Cell Distribution Width 25.7 % (11.5-14.5)
[2020-11-06 05:37] LABS: Basophils # 0.1 K/mcL (0.0-0.2); Hematocrit 31.3 % (37.5-50.1); Immature Granulocytes % 4.4 % (0-4); Lymphocytes # 1.2 K/mcL (0.6-4.6); Mean Corpuscular Hemoglobin 22.9 pg (28.0-33.3); Mean Corpuscular Volume 79.6 fL (83.0-100.0); Mean Platelet Volume 10.9 fL (9.4-12.4); Monocytes # 1.7 K/mcL (0.0-1.3); Monocytes % 8.5 %; Neutrophils # 16.4 K/mcL (1.6-8.9); Platelet Count 229 K/mcL (140-400); Red Blood Count 3.93 M/mcL (4.19-5.50); Segmented Neutrophils % 80.7 %; White Blood Count 20.3 K/mcL (4.3-11.1)
[2020-11-06 05:53] LABS: BUN/Creatinine Ratio 42 (6-26); Blood Urea Nitrogen 48 mg/dL (8-23); Calcium 8.5 mg/dL (8.6-10.3); Carbon Dioxide 33 mEq/L (23-29); Chloride 101 mEq/L (98-107); Glucose 165 mg/dL (70-105); Osmolality,Calculated 306 (280-300); Phosphorous 2.8 mg/dL (2.7-4.5); Potassium 3.4 mEq/L (3.5-5.1); Sodium 140 mEq/L (136-145); eGFR For African Americans > 60 (> 60); eGFR For Non-African Americans > 60 (> 60)
[2020-11-06 05:55] LABS: Hypochromasia Present (Not Present); Polychromasia 1+ (Not Present)
[2020-11-06 05:56] LABS: Anisocytosis 3+ (Not Present); Microcytosis Present (Not Present); Platelet Estimate Normal (Normal); Poikilocytosis 1+ (Not Present); Target Cells 1+ (Not Present)
[2020-11-06] MEDS: Insulin DETEMIR 100 UNIT/ML X5UNITS SUBQ SCH ×2 (08:57→20:57)
[2020-11-06] MEDS: Furosemide 40 MG TABLET PO SCH (08:58)
[2020-11-06] MEDS: Dexamethasone Sodium Phos/PF 10 MG/ML VIAL IVP SCH (08:58)
[2020-11-06] MEDS: Aspirin Enteric Coated 81 MG Tablet PO SCH (08:58)
[2020-11-06] MEDS: Insulin LISPRO 300 UNITS/3 ML VIAL SUBQ SCH ×3 (08:58→17:09)
[2020-11-06] MEDS: Apixaban 5 MG TABLET PO SCH ×2 (08:58→20:57)
[2020-11-06] MEDS: Metoprolol XL (24 HR) Succ 50 MG TAB.ER.24H PO SCH (08:59)
[2020-11-06] MEDS: metroNIDAZOLE 500 MG TABLET PO SCH ×3 (08:59→20:57)
[2020-11-06] MEDS: *HR* Amiodarone 200 MG TABLET PO SCH (08:59)
[2020-11-06] MEDS: Gabapentin 400 MG CAPSULE PO SCH ×3 (08:59→20:57)
[2020-11-07] MEDS: Cefepime HCl 2,000 MG in Water for inj. (sterile) 20 ML IVP SCH ×3 (03:05→17:23)
[2020-11-07] MEDS: Ipratropium 1 PUFF INHALER IH SCH ×6 (04:23→23:16)
[2020-11-07 04:48] LABS: Basophils % 0.3 %; Mean Corpuscular Hemoglobin 22.9 pg (28.0-33.3)
[2020-11-07 04:50] LABS: Basophils # 0.1 K/mcL (0.0-0.2); Hemoglobin 8.7 g/dL (12.9-16.9); Immature Platelets 8.5 % (1.1-6.1); Lymphocytes # 1.2 K/mcL (0.6-4.6); Lymphocytes % 5.1 %; Mean Corpuscular Volume 78.9 fL (83.0-100.0); Monocytes # 1.9 K/mcL (0.0-1.3); Monocytes % 7.7 %; Neutrophils # 19.9 K/mcL (1.6-8.9); Platelet Count 193 K/mcL (140-400); Red Cell Distribution Width 25.9 % (11.5-14.5); Segmented Neutrophils % 82.9 %
[2020-11-07 05:08] LABS: BUN/Creatinine Ratio 42 (6-26); Blood Urea Nitrogen 48 mg/dL (8-23); Calcium 8.1 mg/dL (8.6-10.3); Carbon Dioxide 33 mEq/L (23-29); Chloride 100 mEq/L (98-107); Glucose 75 mg/dL (70-105); Osmolality,Calculated 297 (280-300); Phosphorous 3.2 mg/dL (2.7-4.5); Potassium 4.4 mEq/L (3.5-5.1); Sodium 138 mEq/L (136-145); eGFR For African Americans > 60 (> 60); eGFR For Non-African Americans > 60 (> 60)
[2020-11-07 05:38] LABS: Anisocytosis 2+ (Not Present); Poikilocytosis 1+ (Not Present)
[2020-11-07 05:39] LABS: Platelet Estimate Normal (Normal)
[2020-11-07] MEDS: Insulin LISPRO 300 UNITS/3 ML VIAL SUBQ SCH ×3 (09:15→15:38)
[2020-11-07] MEDS: Apixaban 5 MG TABLET PO SCH ×2 (09:24→20:48)
[2020-11-07] MEDS: metroNIDAZOLE 500 MG TABLET PO SCH ×3 (09:24→20:48)
[2020-11-07] MEDS: Aspirin Enteric Coated 81 MG Tablet PO SCH (09:24)
[2020-11-07] MEDS: Metoprolol XL (24 HR) Succ 50 MG TAB.ER.24H PO SCH (09:25)
[2020-11-07] MEDS: Gabapentin 400 MG CAPSULE PO SCH ×3 (09:25→20:48)
[2020-11-07] MEDS: *HR* Amiodarone 200 MG TABLET PO SCH (09:25)
[2020-11-07] MEDS: Furosemide 40 MG TABLET PO SCH (09:25)
[2020-11-07] MEDS: Insulin DETEMIR 100 UNIT/ML X5UNITS SUBQ SCH (09:25)
[2020-11-07] MEDS: dexAMETHasone 4 MG TABLET PO SCH (09:25)
[2020-11-07] MEDS: *HR* Dextrose 50 % in Water (Vial) 50 ML VIAL IVP PRN ×2 (12:57→16:28)
[2020-11-07] MEDS ORDERED: D10% in Water 500 ML IVC SCH (16:30)
[2020-11-07] MEDS ORDERED: 0.9 % Sodium Chloride 250 ML IVC ONE (16:40)
[2020-11-07] MEDS: Albumin 25% 25gram/100mL 25 GM/100 ML IV.SOLN IVC SCH ×2 (18:52→20:47)
[2020-11-08] MEDS: Cefepime HCl 2,000 MG in Water for inj. (sterile) 20 ML IVP SCH ×3 (04:09→17:10)
[2020-11-08] MEDS: Ipratropium 1 PUFF INHALER IH SCH ×6 (04:11→23:13)
[2020-11-08 04:59] LABS: Hemoglobin 8.5 g/dL (12.9-16.9); Mean Corpuscular Volume 79.8 fL (83.0-100.0)
[2020-11-08 05:01] LABS: Basophils % 0.2 %; Hematocrit 28.5 % (37.5-50.1); Immature Granulocytes % 2.2 % (0-4); Immature Platelets 7.5 % (1.1-6.1); Lymphocytes # 1.2 K/mcL (0.6-4.6); Mean Corpuscular HGB Conc 29.8 g/dL (31.6-35.5); Mean Corpuscular Hemoglobin 23.8 pg (28.0-33.3); Monocytes # 1.4 K/mcL (0.0-1.3); Monocytes % 5.9 %; Neutrophils # 19.9 K/mcL (1.6-8.9); Platelet Count 183 K/mcL (140-400); Red Blood Count 3.57 M/mcL (4.19-5.50); Red Cell Distribution Width 26.2 % (11.5-14.5); Segmented Neutrophils % 86.7 %
[2020-11-08 05:06] LABS: Basophils # 0.1 K/mcL (0.0-0.2)
[2020-11-08 05:17] LABS: BUN/Creatinine Ratio 44 (6-26); Blood Urea Nitrogen 51 mg/dL (8-23); Calcium 8.5 mg/dL (8.6-10.3); Carbon Dioxide 31 mEq/L (23-29); Chloride 99 mEq/L (98-107); Creatine Kinase 32 Units/L (30-223); Glucose 100 mg/dL (70-105); Magnesium 2.1 mg/dL (1.6-2.6); Osmolality,Calculated 298 (280-300); Phosphorous 4.3 mg/dL (2.7-4.5); Potassium 4.6 mEq/L (3.5-5.1); Sodium 137 mEq/L (136-145); eGFR For African Americans > 60 (> 60); eGFR For Non-African Americans > 60 (> 60)
[2020-11-08 05:26] LABS: Hypochromasia Present (Not Present); Platelet Estimate Normal (Normal)
[2020-11-08 05:27] LABS: Anisocytosis 1+ (Not Present)
[2020-11-08] MEDS: Aspirin Enteric Coated 81 MG Tablet PO SCH (08:54)
[2020-11-08] MEDS: Gabapentin 400 MG CAPSULE PO SCH ×3 (08:54→21:22)
[2020-11-08] MEDS: metroNIDAZOLE 500 MG TABLET PO SCH ×3 (08:55→21:22)
[2020-11-08] MEDS: dexAMETHasone 4 MG TABLET PO SCH (08:56)
[2020-11-08] MEDS: *HR* Amiodarone 200 MG TABLET PO SCH (08:56)
[2020-11-08] MEDS: Apixaban 5 MG TABLET PO SCH ×2 (08:56→21:22)
[2020-11-08] MEDS: Metoprolol XL (24 HR) Succ 50 MG TAB.ER.24H PO SCH (08:56)
[2020-11-08] MEDS: Insulin LISPRO 300 UNITS/3 ML VIAL SUBQ SCH ×3 (08:57→17:22)
[2020-11-08] MEDS: *HR* OxyCODONE/APAP 5/325 TABLET PO PRN ×2 (12:07→17:38)
[2020-11-09] MEDS: *HR* OxyCODONE/APAP 5/325 TABLET PO PRN ×3 (00:35→17:28)
[2020-11-09] MEDS: Ipratropium 1 PUFF INHALER IH SCH ×5 (03:53→20:24)
[2020-11-09 05:05] LABS: Basophils % 0.3 %; Hemoglobin 9.2 g/dL (12.9-16.9)
[2020-11-09 05:07] LABS: Basophils # 0.1 K/mcL (0.0-0.2); Hematocrit 31.8 % (37.5-50.1); Immature Granulocytes % 2.7 % (0-4); Immature Platelets 9.4 % (1.1-6.1); Lymphocytes # 1.1 K/mcL (0.6-4.6); Lymphocytes % 4.5 %; Mean Corpuscular HGB Conc 28.9 g/dL (31.6-35.5); Mean Corpuscular Hemoglobin 22.8 pg (28.0-33.3); Mean Corpuscular Volume 78.7 fL (83.0-100.0); Monocytes # 1.4 K/mcL (0.0-1.3); Monocytes % 5.9 %; Neutrophils # 20.5 K/mcL (1.6-8.9); Platelet Count 192 K/mcL (140-400); Red Blood Count 4.04 M/mcL (4.19-5.50); Red Cell Distribution Width 26.2 % (11.5-14.5); Segmented Neutrophils % 86.6 %; White Blood Count 23.7 K/mcL (4.3-11.1)
[2020-11-09 05:27] LABS: BUN/Creatinine Ratio 40 (6-26); Blood Urea Nitrogen 46 mg/dL (8-23); Calcium 8.6 mg/dL (8.6-10.3); Carbon Dioxide 28 mEq/L (23-29); Chloride 99 mEq/L (98-107); Glucose 128 mg/dL (70-105); Osmolality,Calculated 290 (280-300); Phosphorous 3.5 mg/dL (2.7-4.5); Potassium 4.6 mEq/L (3.5-5.1); Sodium 133 mEq/L (136-145); eGFR For African Americans > 60 (> 60); eGFR For Non-African Americans > 60 (> 60)
[2020-11-09 06:13] LABS: Anisocytosis 1+ (Not Present); Macrocytosis Present (Not Present)
[2020-11-09 06:14] LABS: Hypochromasia Present (Not Present); Platelet Estimate Normal (Normal); Poikilocytosis 1+ (Not Present)
[2020-11-09] MEDS: Apixaban 5 MG TABLET PO SCH ×2 (09:01→19:51)
[2020-11-09] MEDS: *HR* Amiodarone 200 MG TABLET PO SCH (09:02)
[2020-11-09] MEDS: metroNIDAZOLE 500 MG TABLET PO SCH (09:02)
[2020-11-09] MEDS: dexAMETHasone 4 MG TABLET PO SCH (09:03)
[2020-11-09] MEDS: Aspirin Enteric Coated 81 MG Tablet PO SCH (09:04)
[2020-11-09] MEDS: Gabapentin 400 MG CAPSULE PO SCH ×3 (09:04→19:51)
[2020-11-09] MEDS: Insulin LISPRO 300 UNITS/3 ML VIAL SUBQ SCH ×3 (09:04→17:24)
[2020-11-09] MEDS: Metoprolol XL (24 HR) Succ 50 MG TAB.ER.24H PO SCH (09:04)
[2020-11-09] MEDS ORDERED: Meropenem 1,000 MG in Water for inj. (sterile) 20 ML IVP SCH ×2 (12:00→18:00)
[2020-11-09] MEDS: Meropenem 1,000 MG in Water for inj. (sterile) 20 ML IVP SCH (19:43)
[2020-11-10] MEDS: Ipratropium 1 PUFF INHALER IH SCH ×7 (00:02→23:42)
[2020-11-10] MEDS: *HR* OxyCODONE/APAP 5/325 TABLET PO PRN ×4 (03:36→20:21)
[2020-11-10] MEDS: Meropenem 1,000 MG in Water for inj. (sterile) 20 ML IVP SCH (03:41)
[2020-11-10 05:08] LABS: Basophils % 0.2 %; Red Cell Distribution Width 26.6 % (11.5-14.5)
[2020-11-10 05:10] LABS: Basophils # 0.1 K/mcL (0.0-0.2); Hematocrit 33.5 % (37.5-50.1); Hemoglobin 9.8 g/dL (12.9-16.9); Immature Granulocytes % 1.7 % (0-4); Immature Platelets 9.1 % (1.1-6.1); Lymphocytes # 1.1 K/mcL (0.6-4.6); Lymphocytes % 3.6 %; Mean Corpuscular HGB Conc 29.3 g/dL (31.6-35.5); Mean Corpuscular Volume 78.6 fL (83.0-100.0); Monocytes # 1.7 K/mcL (0.0-1.3); Monocytes % 5.7 %; Platelet Count 204 K/mcL (140-400); Red Blood Count 4.26 M/mcL (4.19-5.50); Segmented Neutrophils % 88.8 %; White Blood Count 29.3 K/mcL (4.3-11.1)
[2020-11-10 05:18] LABS: Fibrinogen 582 mg/dL (169-393)
[2020-11-10 05:19] LABS: D-Dimer 7561 ng/mLFEU (0-500)
[2020-11-10 05:32] LABS: Anisocytosis 3+ (Not Present); BUN/Creatinine Ratio 49 (6-26); Blood Urea Nitrogen 42 mg/dL (8-23); Calcium 8.9 mg/dL (8.6-10.3); Carbon Dioxide 28 mEq/L (23-29); Chloride 100 mEq/L (98-107); Glucose 101 mg/dL (70-105); Hypochromasia Present (Not Present); Lactate Dehydrogenase 263 Units/L (140-271); Magnesium 2.1 mg/dL (1.6-2.6); Osmolality,Calculated 291 (280-300); Phosphorous 3.6 mg/dL (2.7-4.5); Potassium 4.6 mEq/L (3.5-5.1); Sodium 135 mEq/L (136-145); eGFR For African Americans > 60 (> 60); eGFR For Non-African Americans > 60 (> 60)
[2020-11-10 05:33] LABS: Microcytosis Present (Not Present); Platelet Estimate Normal (Normal); Poikilocytosis 1+ (Not Present); Target Cells 1+ (Not Present)
[2020-11-10 05:47] LABS: Ferritin 183 ng/mL (20-250)
[2020-11-10] MEDS: Insulin LISPRO 300 UNITS/3 ML VIAL SUBQ SCH ×3 (08:00→16:48)
[2020-11-10] MEDS: Metoprolol XL (24 HR) Succ 50 MG TAB.ER.24H PO SCH (08:21)
[2020-11-10] MEDS: Aspirin Enteric Coated 81 MG Tablet PO SCH (08:21)
[2020-11-10] MEDS: Gabapentin 400 MG CAPSULE PO SCH ×3 (08:21→20:21)
[2020-11-10] MEDS: Apixaban 5 MG TABLET PO SCH ×2 (08:21→20:21)
[2020-11-10] MEDS: Dexamethasone 4 MG/ML VIAL IVP SCH (08:22)
[2020-11-10] MEDS: *HR* Amiodarone 200 MG TABLET PO SCH (08:22)
[2020-11-10] MEDS: Loratadine 10 MG TABLET PO SCH (11:08)
[2020-11-10] MEDS: Fluconazole 400 MG/200 ML 400 MG/200 ML BAG IVPB SCH (11:08)
[2020-11-10] MEDS ORDERED: Meropenem 1,000 MG in Water for inj. (sterile) 20 ML IVP SCH (12:00)
[2020-11-11] MEDS: Meropenem 1,000 MG in Water for inj. (sterile) 20 ML IVP SCH ×4 (01:00→23:58)
[2020-11-11] MEDS: Ipratropium 1 PUFF INHALER IH SCH ×6 (03:49→20:12)
[2020-11-11] MEDS: *HR* OxyCODONE/APAP 5/325 TABLET PO PRN ×4 (04:24→16:59)
[2020-11-11 05:04] LABS: Basophils % 0.2 %; Hemoglobin 9.4 g/dL (12.9-16.9); Mean Corpuscular Volume 79.8 fL (83.0-100.0)
[2020-11-11 05:05] LABS: Basophils # 0.1 K/mcL (0.0-0.2); Immature Granulocytes % 1.3 % (0-4); Immature Platelets 8.2 % (1.1-6.1); Lymphocytes # 0.9 K/mcL (0.6-4.6); Lymphocytes % 3.3 %; Mean Corpuscular HGB Conc 29.4 g/dL (31.6-35.5); Mean Corpuscular Hemoglobin 23.4 pg (28.0-33.3); Monocytes % 3.7 %; Platelet Count 186 K/mcL (140-400); Red Blood Count 4.01 M/mcL (4.19-5.50); Red Cell Distribution Width 26.7 % (11.5-14.5); Segmented Neutrophils % 91.5 %; White Blood Count 26.6 K/mcL (4.3-11.1)
[2020-11-11 05:08] LABS: Neutrophils # 24.3 K/mcL (1.6-8.9)
[2020-11-11 05:09] LABS: Fibrinogen 598 mg/dL (169-393)
[2020-11-11 05:10] LABS: D-Dimer 7438 ng/mLFEU (0-500)
[2020-11-11 05:23] LABS: BUN/Creatinine Ratio 51 (6-26); Blood Urea Nitrogen 40 mg/dL (8-23); Calcium 8.4 mg/dL (8.6-10.3); Carbon Dioxide 25 mEq/L (23-29); Chloride 100 mEq/L (98-107); Glucose 161 mg/dL (70-105); Magnesium 1.9 mg/dL (1.6-2.6); Osmolality,Calculated 289 (280-300); Potassium 4.3 mEq/L (3.5-5.1); Sodium 133 mEq/L (136-145); eGFR For African Americans > 60 (> 60); eGFR For Non-African Americans > 60 (> 60)
[2020-11-11 05:35] LABS: Thyroid Stimulating Hormone 0.253 mcIU/mL (0.340-5.600)
[2020-11-11 05:53] LABS: Anisocytosis 2+ (Not Present); Hypochromasia Present (Not Present); Platelet Estimate Normal (Normal); Poikilocytosis 1+ (Not Present)
[2020-11-11] MEDS: Insulin LISPRO 300 UNITS/3 ML VIAL SUBQ SCH ×3 (08:09→16:59)
[2020-11-11] MEDS: Aspirin Enteric Coated 81 MG Tablet PO SCH (08:33)
[2020-11-11] MEDS: Gabapentin 400 MG CAPSULE PO SCH ×3 (08:33→20:56)
[2020-11-11] MEDS: Apixaban 5 MG TABLET PO SCH ×2 (08:34→20:57)
[2020-11-11] MEDS: Metoprolol XL (24 HR) Succ 50 MG TAB.ER.24H PO SCH (08:34)
[2020-11-11] MEDS: Fluconazole 400 MG/200 ML 400 MG/200 ML BAG IVPB SCH (08:34)
[2020-11-11] MEDS: *HR* Amiodarone 200 MG TABLET PO SCH (08:34)
[2020-11-11] MEDS: Loratadine 10 MG TABLET PO SCH (08:34)
[2020-11-11] MEDS: Dexamethasone 4 MG/ML VIAL IVP SCH (08:35)
[2020-11-11] MEDS ORDERED: Capsaicin 0.025% 60 GM TUBE TP PRN (10:45)
[2020-11-11] MEDS: Magic Mouthwash 10 ML UD Cup PO SCH ×2 (12:41→16:59)
[2020-11-12] MEDS: Ipratropium 1 PUFF INHALER IH SCH ×8 (00:28→23:52)
[2020-11-12] MEDS ORDERED: *HR* Metoprolol 5 MG/5 ML VIAL IVP ONE ×3 (03:20→05:12)
[2020-11-12 05:31] LABS: Basophils % 0.2 %; Fibrinogen 672 mg/dL (169-393); Hematocrit 34.6 % (37.5-50.1); Segmented Neutrophils % 93.6 %
[2020-11-12 05:33] LABS: Basophils # 0.1 K/mcL (0.0-0.2); Hemoglobin 10.2 g/dL (12.9-16.9); Immature Granulocytes % 1.3 % (0-4); Immature Platelets 8.5 % (1.1-6.1); Lymphocytes # 1.1 K/mcL (0.6-4.6); Lymphocytes % 2.7 %; Mean Corpuscular HGB Conc 29.5 g/dL (31.6-35.5); Mean Corpuscular Hemoglobin 23.2 pg (28.0-33.3); Mean Corpuscular Volume 78.6 fL (83.0-100.0); Monocytes # 0.9 K/mcL (0.0-1.3); Monocytes % 2.2 %; Platelet Count 225 K/mcL (140-400); Red Cell Distribution Width 27.4 % (11.5-14.5)
[2020-11-12 05:37] LABS: D-Dimer 9130 ng/mLFEU (0-500)
[2020-11-12] MEDS: *HR* OxyCODONE/APAP 5/325 TABLET PO PRN (05:55)
[2020-11-12 06:07] LABS: % Iron Saturation 9 % (20-55); BUN/Creatinine Ratio 48 (6-26); Blood Urea Nitrogen 39 mg/dL (8-23); Carbon Dioxide 25 mEq/L (23-29); Chloride 102 mEq/L (98-107); Glucose 151 mg/dL (70-105); Iron 19 mcg/dL (65-175); Magnesium 2.2 mg/dL (1.6-2.6); Osmolality,Calculated 294 (280-300); Potassium 4.5 mEq/L (3.5-5.1); Sodium 136 mEq/L (136-145); Transferrin 145 mg/dL (203-362); eGFR For African Americans > 60 (> 60); eGFR For Non-African Americans > 60 (> 60)
[2020-11-12 06:11] LABS: Ferritin 576 ng/mL (20-250)
[2020-11-12 06:17] LABS: Folate 10.3 ng/mL (3.0-16.0)
[2020-11-12 06:20] LABS: Neutrophils # 38.8 K/mcL (1.6-8.9); White Blood Count 41.4 K/mcL (4.3-11.1)
[2020-11-12 06:22] LABS: Anisocytosis 2+ (Not Present); Microcytosis Present (Not Present); Platelet Estimate Normal (Normal); Reactive Lymphocytes Present (Not Present)
[2020-11-12] MEDS ORDERED: Amiodarone Premix 360 MG/200 ML BAG IVC ONE (06:41)
[2020-11-12] MEDS ORDERED: DilTIAZem 50 MG/50 ML IV.SOLN IVC SCH (06:45)
[2020-11-12] MEDS: Meropenem 1,000 MG in Water for inj. (sterile) 20 ML IVP SCH ×3 (08:05→23:28)
[2020-11-12] MEDS: Gabapentin 400 MG CAPSULE PO SCH ×3 (08:06→21:52)
[2020-11-12] MEDS: Dexamethasone 4 MG/ML VIAL IVP SCH (08:06)
[2020-11-12] MEDS: Aspirin Enteric Coated 81 MG Tablet PO SCH (08:08)
[2020-11-12] MEDS: Loratadine 10 MG TABLET PO SCH (08:08)
[2020-11-12] MEDS: Fluconazole 400 MG/200 ML 400 MG/200 ML BAG IVPB SCH (08:08)
[2020-11-12] MEDS: Apixaban 5 MG TABLET PO SCH (08:09)
[2020-11-12] MEDS: Magic Mouthwash 10 ML UD Cup PO SCH ×3 (08:09→16:22)
[2020-11-12] MEDS: Insulin LISPRO 300 UNITS/3 ML VIAL SUBQ SCH ×3 (08:10→16:23)
[2020-11-12 09:12] LABS: Mean Corpuscular HGB Conc 29.5 g/dL (31.6-35.5)
[2020-11-12 09:14] LABS: Hematocrit 35.9 % (37.5-50.1); Hemoglobin 10.6 g/dL (12.9-16.9); Immature Platelets 9.6 % (1.1-6.1); Mean Corpuscular Hemoglobin 23.6 pg (28.0-33.3); Mean Corpuscular Volume 79.8 fL (83.0-100.0); Platelet Count 234 K/mcL (140-400); Red Cell Distribution Width 28.3 % (11.5-14.5)
[2020-11-12 09:31] LABS: White Blood Count 42.3 K/mcL (4.3-11.1)
[2020-11-12 09:51] LABS: Anisocytosis 1+ (Not Present); Platelet Estimate Normal (Normal)
[2020-11-12] MEDS: Metoprolol XL (24 HR) Succ 50 MG TAB.ER.24H PO SCH (09:59)
[2020-11-12] MEDS: *HR* Digoxin 0.5 MG/2 ML AMPUL IVP SCH ×3 (10:21→23:27)
[2020-11-12 10:43] LABS: Neutrophils # 39.8 K/mcL (1.6-8.9)
[2020-11-12 10:44] LABS: Lymphocytes # 2.5 K/mcL (0.6-4.6)
[2020-11-12 10:50] LABS: Alanine Aminotransferase 28 Units/L (7-52); Albumin 2.8 g/dL (3.5-5.7); Albumin/Globulin Ratio 0.9 (1.1-2.2); Alkaline Phosphatase 531 Units/L (34-104); Aspartate Amino Transferase 42 Units/L (13-39); Bilirubin,Direct 0.2 mg/dL (0.0-0.2); Bilirubin,Indirect 0.4 mg/dL (0.0-1.0); Bilirubin,Total 0.6 mg/dL (0.3-1.0); Total Protein 5.8 g/dL (6.4-8.9)
[2020-11-12] MEDS ORDERED: 0.9 % Sodium Chloride 500 ML ONE (10:53)
[2020-11-12] MEDS ORDERED: 0.9 % Sodium Chloride 250 ML IVC ONE ×2 (10:55→11:47)
[2020-11-12 11:49] LABS: Troponin I 1.01 ng/mL (< 0.04)
[2020-11-12] MEDS ORDERED: Heparin 25,000UNIT/250ML 1/2NS 25,000 UNIT/250 ML IV.SOLN IVC SCH ×2 (12:15→20:00)
[2020-11-12] MEDS ORDERED: Isovue-370 500 ML BOTTLE IVP ONE (12:25)
[2020-11-12] MEDS ORDERED: *HR* LORazepam 2 MG/ML VIAL ONE (12:44)
[2020-11-12 12:57] LABS: INR 1.4; Prothrombin Time 15.7 Seconds (9.4-12.1)
[2020-11-12 13:00] LABS: Activated Partial Thrombo Time 24.7 Seconds (26.0-36.0)
[2020-11-12 13:02] LABS: Hematocrit 30.3 % (37.5-50.1); Hemoglobin 9.1 g/dL (12.9-16.9); Immature Platelets 8.7 % (1.1-6.1); Mean Corpuscular Hemoglobin 23.8 pg (28.0-33.3); Mean Corpuscular Volume 79.1 fL (83.0-100.0); Platelet Count 180 K/mcL (140-400); Red Blood Count 3.83 M/mcL (4.19-5.50); Red Cell Distribution Width 27.4 % (11.5-14.5)
[2020-11-12 13:08] LABS: White Blood Count 36.6 K/mcL (4.3-11.1)
[2020-11-12 13:13] LABS: Heparin anti-factor XA UFH > 2.00 IU/mL (0.30-0.70)
[2020-11-12] MEDS ORDERED: *HR* LORazepam 2 MG/ML VIAL IVP ONE (13:55)
[2020-11-12] MEDS: Amiodarone Premix 360 MG/200 ML BAG IVC SCH ×2 (14:12→16:25)
[2020-11-12] MEDS ORDERED: *HR* LORazepam 2 MG/ML VIAL IVP PRN (15:07)
[2020-11-12] MEDS ORDERED: Perflutren Lipid Microsphere 1.3 ML in 0.9 % Sodium Chloride 8.7 ML IVP PRN (18:38)
[2020-11-12] MEDS ORDERED: *HR* Heparin 5,000 UNIT/ML VIAL IVP ONE ×2 (20:00)
[2020-11-12] MEDS ORDERED: *HR* Heparin 5,000 UNIT/ML VIAL IVP PRN ×4 (20:00)
[2020-11-13] MEDS: Ipratropium 1 PUFF INHALER IH SCH ×7 (04:17→23:29)
[2020-11-13 04:31] LABS: Basophils % 0.1 %; Hemoglobin 8.5 g/dL (12.9-16.9)
[2020-11-13 04:33] LABS: Hematocrit 28.3 % (37.5-50.1); Immature Granulocytes % 1.2 % (0-4); Immature Platelets 6.7 % (1.1-6.1); Lymphocytes # 0.6 K/mcL (0.6-4.6); Mean Corpuscular Hemoglobin 23.4 pg (28.0-33.3); Monocytes # 0.5 K/mcL (0.0-1.3); Monocytes % 1.6 %; Platelet Count 162 K/mcL (140-400); Red Blood Count 3.63 M/mcL (4.19-5.50); Red Cell Distribution Width 27.4 % (11.5-14.5); Segmented Neutrophils % 95.1 %
[2020-11-13 04:41] LABS: INR 1.3
[2020-11-13 04:43] LABS: Neutrophils # 30.6 K/mcL (1.6-8.9)
[2020-11-13 04:45] LABS: BUN/Creatinine Ratio 47 (6-26); Blood Urea Nitrogen 41 mg/dL (8-23); Calcium 8.7 mg/dL (8.6-10.3); Carbon Dioxide 27 mEq/L (23-29); Chloride 104 mEq/L (98-107); Glucose 77 mg/dL (70-105); Magnesium 2.2 mg/dL (1.6-2.6); Osmolality,Calculated 293 (280-300); Phosphorous 4.2 mg/dL (2.7-4.5); Potassium 4.7 mEq/L (3.5-5.1); Sodium 137 mEq/L (136-145); White Blood Count 32.2 K/mcL (4.3-11.1); eGFR For African Americans > 60 (> 60); eGFR For Non-African Americans > 60 (> 60)
[2020-11-13 04:46] LABS: Chol/HDL Ratio 5.2 (0-4.9)
[2020-11-13 05:26] LABS: Anisocytosis 1+ (Not Present); Platelet Estimate Normal (Normal); Poikilocytosis 1+ (Not Present); Toxic Granulation Present (Not Present)
[2020-11-13] MEDS ORDERED: Furosemide 40 MG/4 ML VIAL IVP ONE (08:08)
[2020-11-13] MEDS: Insulin LISPRO 300 UNITS/3 ML VIAL SUBQ SCH ×3 (08:56→18:55)
[2020-11-13] MEDS: Magic Mouthwash 10 ML UD Cup PO SCH ×2 (09:09→13:12)
[2020-11-13] MEDS: Loratadine 10 MG TABLET PO SCH (09:13)
[2020-11-13] MEDS: Metoprolol XL (24 HR) Succ 50 MG TAB.ER.24H PO SCH (09:13)
[2020-11-13] MEDS: *HR* Dextrose 50 % in Water (Vial) 50 ML VIAL IVP PRN (09:17)
[2020-11-13] MEDS ORDERED: Morphine Sulfate 2 MG/ML SYRINGE IVP PRN (09:22)
[2020-11-13] MEDS: Aspirin Enteric Coated 81 MG Tablet PO SCH (09:28)
[2020-11-13] MEDS: Gabapentin 400 MG CAPSULE PO SCH (09:29)
[2020-11-13] MEDS: *HR* Dextrose 50 % in Water (Vial) 50 ML VIAL IVP SCH (09:29)
[2020-11-13] MEDS: *HR* Digoxin 0.5 MG/2 ML AMPUL IVP SCH (09:31)
[2020-11-13] MEDS: Meropenem 1,000 MG in Water for inj. (sterile) 20 ML IVP SCH ×3 (09:47→23:41)
[2020-11-13] MEDS: Dexamethasone 4 MG/ML VIAL IVP SCH (09:55)
[2020-11-13] MEDS: Pantoprazole 40 MG VIAL IVP SCH (10:04)
[2020-11-13] MEDS: Fluconazole 400 MG/200 ML 400 MG/200 ML BAG IVPB SCH (10:05)
[2020-11-13] MEDS: Morphine Sulfate 2 MG/ML SYRINGE IVP PRN (13:45)
[2020-11-13] MEDS: *HR* Metoprolol 5 MG/5 ML VIAL IVP SCH ×3 (13:47→21:18)
[2020-11-13] MEDS: *HR* LORazepam 2 MG/ML VIAL IVP PRN (15:27)
[2020-11-13] MEDS: Dexmedetomidine HCl 400 MCG/100 ML MLS IVC SCH (16:55)
[2020-11-14] MEDS: Morphine Sulfate 2 MG/ML SYRINGE IVP PRN (02:16)
[2020-11-14] MEDS: Ipratropium 1 PUFF INHALER IH SCH ×3 (03:58→11:45)
[2020-11-14 04:51] LABS: Basophils % 0.1 %; Red Cell Distribution Width 27.4 % (11.5-14.5)
[2020-11-14 04:53] LABS: Hematocrit 26.3 % (37.5-50.1); Immature Granulocytes % 1.5 % (0-4); Immature Platelets 4.6 % (1.1-6.1); Lymphocytes # 0.6 K/mcL (0.6-4.6); Mean Corpuscular HGB Conc 30.4 g/dL (31.6-35.5); Mean Corpuscular Hemoglobin 24.2 pg (28.0-33.3); Mean Corpuscular Volume 79.7 fL (83.0-100.0); Monocytes # 0.5 K/mcL (0.0-1.3); Monocytes % 1.8 %; Platelet Count 170 K/mcL (140-400); Segmented Neutrophils % 94.6 %; White Blood Count 29.1 K/mcL (4.3-11.1)
[2020-11-14 05:03] LABS: BUN/Creatinine Ratio 48 (6-26); Blood Urea Nitrogen 53 mg/dL (8-23); Calcium 8.8 mg/dL (8.6-10.3); Carbon Dioxide 28 mEq/L (23-29); Chloride 105 mEq/L (98-107); Glucose 110 mg/dL (70-105); Magnesium 2.4 mg/dL (1.6-2.6); Osmolality,Calculated 307 (280-300); Potassium 4.4 mEq/L (3.5-5.1); Sodium 141 mEq/L (136-145); eGFR For African Americans > 60 (> 60); eGFR For Non-African Americans > 60 (> 60)
[2020-11-14 05:04] LABS: Neutrophils # 27.5 K/mcL (1.6-8.9)
[2020-11-14] MEDS: *HR* Metoprolol 5 MG/5 ML VIAL IVP SCH ×3 (05:29→15:55)
[2020-11-14] MEDS ORDERED: Morphine Sulfate 2 MG/ML SYRINGE IVP PRN (05:29)
[2020-11-14 06:19] LABS: Anisocytosis 3+ (Not Present); Hypochromasia Present (Not Present); Microcytosis Present (Not Present); Poikilocytosis 1+ (Not Present)
[2020-11-14 06:20] LABS: Platelet Estimate Normal (Normal); Target Cells 1+ (Not Present); Toxic Granulation Present (Not Present)
[2020-11-14] MEDS: Dexmedetomidine HCl 400 MCG/100 ML MLS IVC SCH (08:00)
[2020-11-14] MEDS: Meropenem 1,000 MG in Water for inj. (sterile) 20 ML IVP SCH ×2 (08:01→12:28)
[2020-11-14] MEDS: Fluconazole 400 MG/200 ML 400 MG/200 ML BAG IVPB SCH (08:01)
[2020-11-14] MEDS: Dexamethasone 4 MG/ML VIAL IVP SCH (08:03)
[2020-11-14] MEDS: Loratadine 10 MG TABLET PO SCH (08:05)
[2020-11-14] MEDS: *HR* Digoxin 0.5 MG/2 ML AMPUL IVP SCH (08:05)
[2020-11-14] MEDS: Pantoprazole 40 MG VIAL IVP SCH (08:07)
[2020-11-14] MEDS: *HR* Dextrose 50 % in Water (Vial) 50 ML VIAL IVP SCH (08:10)
[2020-11-14] MEDS: Insulin LISPRO 300 UNITS/3 ML VIAL SUBQ SCH ×2 (08:14→12:27)
[2020-11-14 11:19] VITALS: BP 141/91
[2020-11-14] MEDS ORDERED: Scopolamine Patch 1.5 MG PATCH.TD72 TD SCH (12:30)
[2020-11-14 14:36] LABS: Digoxin 2.1 ng/mL (0.8-2.0)
[2020-11-14] MEDS: *HR* LORazepam 2 MG/ML VIAL IVP PRN (14:36)
== END 2020-11-14 17:27 | disposition hospice, home (50) | DRG 177 ==
LOC: 2NENU 15:23 → EMEROOARM 15:23 → 2NENU 20:45 → SUATTDRO 10-27 22:55
PROVIDERS: ADMIT Internal Medicine; ATTEND Pharmacist